=== PATIENT | female | born 1965 | race Caucasian/White ===

== ENCOUNTER 2016-07-28 19:13 | Emergency (ER) | payer OTHER ==
--- NOTE | 2016-07-28 20:55 | ER Document Report ---
ED Medical Screen (RME) - General Stated Complaint: RIB PAIN Mode of Arrival: Ambulatory Information source: Patient Notes: 50 y/o F presents to ED c/o left lateral chest wall/rib pain since yesterday morning after co-worker gave her a hug. States pain is worse with movement and deep breathing. I have greeted and performed a rapid initial assessment of this patient. A comprehensive ED assessment and evaluation of the patient, analysis of test results and completion of the medical decision making process will be conducted by additional ED providers. TRAVEL OUTSIDE OF THE [place] IN LAST 30 DAYS: No - Related Data Allergies/Adverse Reactions: Penicillins Allergy (Unknown, Verified 04/18/15 12:12) tetracycline [Tetracycline] Allergy (Unknown, Verified 04/18/15 12:12) Iodinated Contrast Media - Oral and [IV Dye, Iodine Containing] Allergy ( Verified 04/18/15 12:12) Liraglutide [From Victoza] Allergy (Verified 04/18/15 12:12) Past Medical History Endocrine Medical History: Reports: Hx Diabetes Mellitus Type 2 - no meds GI Medical History: Reports: Hx Crohn's Disease Musculoskeltal Medical History: Reports Hx Arthritis Past Surgical History: Reports: Hx Bowel Surgery - partial colostomy, Hx Cholecystectomy Physical Exam - Vital signs Vitals: Temp Pulse Resp BP Pulse Ox 98.1 F 86 18 149/72 H 96 07/28/16 20:32 07/28/16 20:32 07/28/16 20:32 07/28/16 20:32 07/28/16 20:32 - General General appearance: Appears well, Alert In distress: None - Respiratory Respiratory status: No respiratory distress Chest status: Tender, Pain with deep breathing Breath sounds: Normal Course - Vital Signs Vital signs: Temp Pulse Resp BP Pulse Ox 98.1 F 86 18 149/72 H 96 07/28/16 20:32 07/28/16 20:32 07/28/16 20:32 07/28/16 20:32 07/28/16 20:32
[2016-07-29] MEDS ORDERED: HYDROCODONE/ACETAMINOPHEN 5-325 MG 6 TAB/DSPK PO PRN (00:24)
[2016-07-29] MEDS ORDERED: AZITHROMYCIN 250 MG TABLET PO ONE (00:24)
--- NOTE | 2016-07-29 00:26 | ER Document Report ---
ED General - General Chief Complaint: Shortness Of Breath Stated Complaint: RIB PAIN Mode of Arrival: Ambulatory Notes: Patient's 48 of female presents with complaint of left lower rib pain. She says her friend who is visiting out of town Jesus because she felt 2 pops her left lower ribs. Since and it hurts to take a deep breath. She's concerned she may have broken ribs. No fevers. No vomiting. No diarrhea. No other complaints at this time. No abdominal pain. TRAVEL OUTSIDE OF THE [place] IN LAST 30 DAYS: No - Related Data Allergies/Adverse Reactions: Penicillins Allergy (Unknown, Verified 04/18/15 12:12) tetracycline [Tetracycline] Allergy (Unknown, Verified 04/18/15 12:12) Iodinated Contrast Media - Oral and [IV Dye, Iodine Containing] Allergy ( Verified 04/18/15 12:12) Liraglutide [From Victoza] Allergy (Verified 04/18/15 12:12) Past Medical History - General Information source: Patient - Social History Smoking Status: Current Every Day Smoker Chew tobacco use (# tins/day): No Frequency of alcohol use: Rare Drug Abuse: None Family History: Hypertension Patient has suicidal ideation: No Patient has homicidal ideation: No Endocrine Medical History: Reports: Hx Diabetes Mellitus Type 2 - no meds Renal/ Medical History: Denies: Hx Peritoneal Dialysis GI Medical History: Reports: Hx Crohn's Disease Musculoskeltal Medical History: Reports Hx Arthritis Past Surgical History: Reports: Hx Bowel Surgery - partial colostomy, Hx Cholecystectomy - Immunizations Hx Pneumococcal Vaccination: 03/05/13 Review of Systems - Review of Systems Notes: My Normal Review Basic REVIEW OF SYSTEMS: CONSTITUTIONAL : Denies fever, chills, or sweats. Denies recent illness. EENT: Denies eye, ear, throat, or mouth pain or symptoms. Denies nasal or sinus congestion. CARDIOVASCULAR: Left lower rib pain. RESPIRATORY: With deep breath. GASTROINTESTINAL: Denies abdominal pain. MUSCULOSKELETAL: Denies neck or back pain or joint pain or swelling. SKIN: Denies rash or skin lesions. NEUROLOGICAL: Denies altered mental status or loss of consciousness. Denies headache. Denies weakness or paralysis or loss of use of either side. Denies problems with gait or speech. Denies sensory or motor loss. ALL OTHER SYSTEMS REVIEWED AND NEGATIVE. Physical Exam - Vital signs Vitals: Temp Pulse Resp BP Pulse Ox 98.1 F 86 18 149/72 H 96 07/28/16 20:32 07/28/16 20:32 07/28/16 20:32 07/28/16 20:32 07/28/16 20:32 - Notes Notes: General Appearance: Well nourished, alert, cooperative, no acute distress, moderate obvious discomfort. Vitals: reviewed, See vital signs table. Head: no swelling or tenderness to the head Eyes: PERRL, EOMI, Conjuctiva clear Mouth: No decreasd moisture Lungs: No wheezing, No rales, No rhonci, No accessory muscle use, good air exchange bilaterally. Chest wall: Tenderness palpation over left lower ribs at the costochondral junction. Heart: Normal rate, Regular rythm, No murmur, no rub Abdomen: Normal BS, soft, No rigidity, No abdominal tenderness, No guarding, no rebound, no abdominal masses, no organomegaly Extremities: strength 5/5 in all extremities, good pulses in all extremities, no swelling or tenderness in the extremities, no edema. Skin: warm, dry, appropriate color, no rash Neuro: speech clear, oriented x 3, normal affect, responds appropriately to questions. Course - Vital Signs Vital signs: Temp Pulse Resp BP Pulse Ox 98.2 F 81 18 134/78 H 97 07/29/16 00:05 07/29/16 00:05 07/29/16 00:05 07/29/16 00:05 07/29/16 00:05 - Transfer of Care Notes: 07/29/16 06:25 Patient will be discharged home with pain medication. She is on immunosuppressive therapy due to history of rheumatoid arthritis. I will therefore place her on antibiotic so prevent pneumonia being that she already has atelectasis on her chest x-ray. She does have incentive spirometer at home. I encourage her to use this every 30 minutes. Patient encouraged return to ER as she has fever, difficulty breathing, or feels unwell. Patient agrees with plan and will be discharged home. Dictation of this chart was performed using voice recognition software; therefore, there may be some unintended grammatical errors. Discharge - Discharge Clinical Impression: Rib pain on left side Condition: Good Disposition: HOME, SELF-CARE Instructions: Oral Narcotic Medication ([facility]) Additional Instructions: Rib Contusion You have been diagnosed as having bruised ribs. It will usually take a few weeks for these injured ribs to heal. You should cough or take a deep breath at least every hour or two to prevent lung complications. You should not engage in any strenuous physical activity until released by your physician. The usual rule is "if it hurts, don' t do it." Return if you develop any of the following: (1) Fever or chills. (2) Persistent cough, coughing up blood, or shortness of breath. (3) Increasing pain. (4) Weakness, lightheadedness, or fainting. Please use your incentive spirometer at home once every 30 minutes to force yourself to take a deep breath. Please do not drive when taking the hydrocodone. please return to the ER if you develop fevers, difficulty breathing , or feel unwell. Prescriptions: Azithromycin 250 mg PO DAILY #4 tablet Hydrocodone/Acetaminophen [[place] 5-325 mg Tablet] 1 tab PO Q4 PRN #16 tablet PRN Reason: For Breakthrough Pain
[2016-07-29 01:10] VITALS: BP 134/78
== END 2016-07-29 00:50 | disposition home or self-care (01) ==
LOC: ER 19:13
DX: R07.81 Pleurodynia (principal); J98.11 Atelectasis; M06.9 Rheumatoid arthritis, unspecified; F17.200 Nicotine dependence, unspecified, uncomplicated; E11.9 Type 2 diabetes mellitus without complications; Z88.0 Allergy status to penicillin; Z88.1 Allergy status to other antibiotic agents; Z91.041 Radiographic dye allergy status; Z88.8 Allergy status to other drugs, medicaments and biological substances; Z79.899 Other long term (current) drug therapy
CPT/HCPCS: 99283

== ENCOUNTER → 2016-08-22 | Outpatient (CLI) | payer OTHER | LOC: RAD 12:38 | PROVIDERS: ATTEND Internal Medicine Nephrology | DX: N18.4 Chronic kidney disease, stage 4 (severe) (principal) | CPT/HCPCS: 76770 ==

== ENCOUNTER 2016-08-30 15:23 | Emergency (ER) | payer OTHER ==
--- NOTE | 2016-08-30 16:14 | ER Document Report ---
ED Medical Screen (RME) - General Stated Complaint: ABNORMAL LABS Notes: States she had labs done at [facility] this morning ordered by her finishing inspector. Called her about 2:00 this afternoon and told her her potassium was 6.0 and advised her to come to the emergency room. Denies chest pain or other symptoms. Patient states she was told she had stage IV renal failure. I have greeted and performed a rapid initial assessment of this patient. A comprehensive ED assessment and evaluation of the patient, analysis of test results and completion of the medical decision making process will be conducted by additional ED providers. TRAVEL OUTSIDE OF THE [place] IN LAST 30 DAYS: No - Related Data Allergies/Adverse Reactions: Penicillins Allergy (Unknown, Verified 08/30/16 16:13) tetracycline [Tetracycline] Allergy (Unknown, Verified 08/30/16 16:13) Iodinated Contrast Media - Oral and [IV Dye, Iodine Containing] Allergy ( Verified 08/30/16 16:13) Liraglutide [From Victoza] Allergy (Verified 08/30/16 16:13) Past Medical History Endocrine Medical History: Reports: Hx Diabetes Mellitus Type 2 - no meds Renal/ Medical History: Denies: Hx Peritoneal Dialysis GI Medical History: Reports: Hx Crohn's Disease Musculoskeltal Medical History: Reports Hx Arthritis Past Surgical History: Reports: Hx Bowel Surgery - partial colostomy, Hx Cholecystectomy - Immunizations Hx Diphtheria, Pertussis, Tetanus Vaccination: Yes Physical Exam - Vital signs Vitals: Temp Pulse Resp BP Pulse Ox 98.6 F 101 H 18 119/72 97 08/30/16 15:39 08/30/16 15:39 08/30/16 15:39 08/30/16 15:39 08/30/16 15:39 - Cardiovascular Rhythm: Regular Heart sounds: Normal auscultation Course - Vital Signs Vital signs: Temp Pulse Resp BP Pulse Ox 98.6 F 101 H 18 119/72 97 08/30/16 15:39 08/30/16 15:39 08/30/16 15:39 08/30/16 15:39 08/30/16 15:39
[2016-08-30 16:57] LABS: ALANINE AMINOTRANSFERASE 22 U/L (9-52); ALBUMIN 4.2 g/dL (3.5-5.0); ALKALINE PHOSPHATASE 94 U/L (38-126); ANION GAP 17 (5-19); ASPARTATE AMINO TRANSFERASE 25 U/L (14-36); BILIRUBIN,DIRECT 0.3 mg/dL (0.0-0.4); BILIRUBIN,TOTAL 0.4 mg/dL (0.2-1.3); BLOOD UREA NITROGEN 39 mg/dL (7-20); CALCIUM 10.2 mg/dL (8.4-10.2); CARBON DIOXIDE 17 mmol/L (22-30); CHLORIDE 108 mmol/L (98-107); CREATINE KINASE 20 U/L (30-135); CREATININE RESULT 2.36 mg/dL (0.52-1.25); GLUCOSE 83 mg/dL (75-110); POTASSIUM 5.7 mmol/L (3.6-5.0); SODIUM 142.1 mmol/L (137-145); TOTAL PROTEIN 7.4 g/dL (6.3-8.2)
[2016-08-30 17:09] LABS: CREATINE KINASE MB < 0.22 ng/mL (<4.55); TROPONIN I < 0.012 ng/mL
[2016-08-30] MEDS ORDERED: NORMAL SALINE 1000 ML 1,000 ML IV PRN (17:53)
--- NOTE | 2016-08-30 17:54 | ER Document Report ---
ED General <EL TABARES - Last Filed: 08/30/16 19:39> - General Mode of Arrival: Ambulatory Information source: Patient TRAVEL OUTSIDE OF THE [place] IN LAST 30 DAYS: No - HPI Onset: Other Quality of pain: No pain Similar symptoms previously: Yes Recently seen / treated by doctor: Yes <GLADYSTU - Last Filed: 08/30/16 20:56> - General Chief Complaint: Abnormal Lab Results Stated Complaint: ABNORMAL LABS Notes: The patient had outpatient lab work done this morning showing a potassium 6.0 and a creatinine 2.14, it was repeated 5 hours later and potassium is 5.7 with a creatinine 2.36 The patient was discussed with Dr. Minor who reports her baseline creatinine is about 2.2 She will receive 2 L of IV fluid, then be encouraged to drink plenty of water and avoid foods and liquids that are rich in potassium. She was also found to have a white blood cell count of 22,000, this is not an unusual finding and she has an appointment in 2 days with a auto dealership porter in [place]. (RAYSHAWN,EL) Patient is a 50-year-old female that presents to the emergency department today secondary to an elevated potassium this morning during outpatient labs. Patient states she is not very compliant with her diet, stating she eats bananas rarely however she does consume approximately 1 orange a day. Patient states she is being followed by a auto dealership porter in [place] secondary to a chronic elevated white blood cell count. Patient is no longer on Humira for RA. Patient states she is not having any problems with her ostomy. (TU GRAHAM) - Related Data Allergies/Adverse Reactions: Penicillins Allergy (Unknown, Verified 08/30/16 17:49) tetracycline [Tetracycline] Allergy (Unknown, Verified 08/30/16 17:49) Iodinated Contrast Media - Oral and [IV Dye, Iodine Containing] Allergy ( Verified 08/30/16 17:49) Liraglutide [From Victoza] Allergy (Verified 08/30/16 17:49) Past Medical History - General Information source: Patient, PENDING SALE TO [facility] Records - Social History Smoking Status: Current Every Day Smoker Cigarette use (# per day): Yes - 1 ppd Chew tobacco use (# tins/day): No Frequency of alcohol use: None Drug Abuse: None Lives with: Family Family History: Reviewed & Not Pertinent, Hypertension Patient has suicidal ideation: No Patient has homicidal ideation: No - Past Medical History Cardiac Medical History: Reports: Hx Hypercholesterolemia, Hx Hypertension Endocrine Medical History: Reports: Hx Diabetes Mellitus Type 2 - no meds GI Medical History: Reports: Hx Crohn's Disease Musculoskeltal Medical History: Reports Hx Arthritis Past Surgical History: Reports: Hx Bowel Surgery - colostomy, iliostomy, Hx Cholecystectomy - Immunizations Hx Diphtheria, Pertussis, Tetanus Vaccination: Yes Hx Pneumococcal Vaccination: 03/05/13 <TU GRAHAM - Last Filed: 08/30/16 20:56> Review of Systems - Review of Systems Constitutional: See HPI, Other - elevated potassium with outpatient labs this morning EENT: No symptoms reported Cardiovascular: No symptoms reported Respiratory: No symptoms reported Gastrointestinal: No symptoms reported Genitourinary: No symptoms reported Female Genitourinary: No symptoms reported Musculoskeletal: No symptoms reported Skin: No symptoms reported Hematologic/Lymphatic: No symptoms reported Neurological/Psychological: No symptoms reported -: Yes All other systems reviewed and negative <TU GRAHAM - Last Filed: 08/30/16 20:56> Physical Exam <EL TABARES - Last Filed: 08/30/16 19:39> <TU GRAHAM - Last Filed: 08/30/16 20:56> - Vital signs Vitals: Temp Pulse Resp BP Pulse Ox 98.6 F 101 H 18 119/72 97 08/30/16 15:39 08/30/16 15:39 08/30/16 15:39 08/30/16 15:39 08/30/16 15:39 - Notes Notes: Physical Exam: General: Alert, appears well. HEENT: Normocephalic. Atraumatic. PERRL. Extraocular movements intact. Oropharynx clear. Neck: Supple. Non-tender. Respiratory: No respiratory distress. Rhonchi with forced cough consistent with extensive smoking history. Cardiovascular: Regular rate and rhythm. Abdominal: Ostomy in place. Obese. Non-tender. No distension. Normal Bowel Sounds. Back: Non-tender. No deformity or step off. Extremities: Moves all four extremities. Upper extremities: Normal inspection. Normal ROM. No edema. Lower extremities: Normal inspection. No edema.Normal ROM. Neurological: Normal cognition. AAOx4. Normal speech. Psychological: Normal affect. Normal Mood. Skin: Warm. Dry. Normal color. (TU GRAHAM) Course - Laboratory Result Diagrams: 08/30/16 16:25 - EKG Interpretation by Me EKG shows normal: Sinus rhythm, [place], Intervals, QRS Complexes, ST-T Waves Rate: Normal - 89 Rhythm: NSR <EL TABARES - Last Filed: 08/30/16 19:39> - Laboratory Result Diagrams: 08/30/16 16:25 <TU GRAHAM - Last Filed: 08/30/16 20:56> - Vital Signs Vital signs: Temp Pulse Resp BP Pulse Ox 98.6 F 87 18 122/75 96 08/30/16 18:11 08/30/16 18:11 08/30/16 18:11 08/30/16 18:11 08/30/16 18:11 - Laboratory Laboratory results interpreted by me: 08/30/16 16:25 Potassium 5.7 H Chloride 108 H Carbon Dioxide 17 L BUN 39 H Creatinine 2.36 H Est GFR ( Amer) 26 L Est GFR (Non-Af Amer) 22 L Creatine Kinase 20 L Discharge <EL TABARES - Last Filed: 08/30/16 19:39> <TU GRAHAM - Last Filed: 08/30/16 20:56> - Discharge Clinical Impression: Hyperkalemia Chronic renal insufficiency Qualifiers: Chronic kidney disease stage: stage 4 (severe) Qualified Code(s): N18.4 - Chronic kidney disease, stage 4 (severe) Condition: Stable Disposition: HOME, SELF-CARE Additional Instructions: Drink plenty of water today. Avoid potassium rich foods, fruits, and liquids. Follow-up with your doctor tomorrow to recheck your potassium level. Referrals: JALYN MORALES MD [Primary Care Provider] - Follow up as needed Scribe Attestation: 08/30/16 19:42 I personally performed the services described in the documentation, reviewed and edited the documentation which was dictated to the scribe in my presence, and it accurately records my words and actions. (EL TABARES) Scribe Documentation - Scribe Written by Scribe:: Joellen Smith, 08/30/2016 193 acting as scribe for :: Rayshawn <TU GRAHAM - Last Filed: 08/30/16 20:56>
--- NOTE | 2016-08-30 20:24 | EKG REPORT ---
SEVERITY:- NORMAL ECG - SINUS RHYTHM : Confirmed by: Marielos Mario 30-Aug-2016 20:24:29
[2016-08-30 21:56] VITALS: BP 117/55
== END 2016-08-30 21:57 | disposition home or self-care (01) ==
LOC: ER 15:23
DX: E87.5 Hyperkalemia (principal); N18.4 Chronic kidney disease, stage 4 (severe); F17.210 Nicotine dependence, cigarettes, uncomplicated
CPT/HCPCS: 93005; 99285; 96360; 96361; 36415; 82553; 82306; 82040; 82550; 84100; 85025; 80048; 80053; 83970; 81001; 84484; 84156; 82570; 93010; J7030

== ENCOUNTER → 2016-08-30 | Outpatient (CLI) | payer OTHER ==
[2016-08-30 12:14] LABS: HEMATOCRIT 37.5 % (36.0-47.0); HEMOGLOBIN 12.1 g/dL (12.0-15.5); HGB HCT DIFFERENCE -1.2; MEAN CORPUSCULAR HEMOGLOBIN 28.3 pg (27.0-33.4); MEAN CORPUSCULAR HGB CONC 32.2 g/dL (32.0-36.0); MEAN CORPUSCULAR VOLUME 88 fl (80-97); RED BLOOD COUNT 4.27 10^6/uL (3.72-5.28); RED CELL DISTRIBUTION WIDTH 14.3 % (11.5-14.0); WHITE BLOOD COUNT 25.2 10^3/uL (4.0-10.5)
[2016-08-30 12:19] LABS: APPEARANCE,URINE CLOUDY; BILIRUBIN,URINE NEGATIVE (NEGATIVE); GLUCOSE, URINE NEGATIVE (NEGATIVE); KETONES,URINE TRACE mg/dL (NEGATIVE); LEUKOCYTE ESTERASE,URINE SMALL (NEGATIVE); NITRITE,URINE NEGATIVE (NEGATIVE); PROTEIN,URINE 100 mg/dL (NEGATIVE); URINE SPECIFIC GRAVITY 1.023
[2016-08-30 12:40] LABS: ANION GAP 14 (5-19); BLOOD UREA NITROGEN 38 mg/dL (7-20); CARBON DIOXIDE 17 mmol/L (22-30); CHLORIDE 109 mmol/L (98-107); CREATININE RESULT 2.14 mg/dL (0.52-1.25); GLUCOSE 189 mg/dL (75-110); PHOSPHORUS 4.6 mg/dL (2.5-4.5); SODIUM 139.6 mmol/L (137-145)
[2016-08-30 13:00] LABS: BAND NEUTROPHILS % (MANUAL) 1 % (3-5); BASOPHILS % (MANUAL) 0 % (0-2); EOSINOPHILS % (MANUAL) 1 % (0-6); LYMPHOCYTES % (MANUAL) 11 % (13-45); POLYCHROMASIA SLIGHT; TOTAL CELLS COUNTED 100
[2016-08-30 13:01] LABS: TOXIC GRANULATION SLIGHT
[2016-08-31 11:05] LABS: VITAMIN D 25-HYDROXY 20.9 ng/mL (30.0-100.0)
[2016-08-31 11:40] LABS: CREATININE URINE 341.6 mg/dL (Not Estab.)
== END ==
LOC: OD 10:47
PROVIDERS: ATTEND Internal Medicine Nephrology
DX: I12.9 Hypertensive chronic kidney disease with stage 1 through stage 4 chronic kidney disease, or unspecified chronic kidney disease (principal); N18.4 Chronic kidney disease, stage 4 (severe); E11.9 Type 2 diabetes mellitus without complications
CPT/HCPCS: 36415; 80048; 81001; 82040; 82306; 82570; 83970; 84100; 84156; 85025

== ENCOUNTER 2016-11-11 15:10 | Emergency (ER) | payer OTHER ==
--- NOTE | 2016-11-11 15:33 | ER Document Report ---
ED Medical Screen (RME) - General Chief Complaint: Abdominal Pain Stated Complaint: ABDOMINAL PAIN Time Seen by Provider: 11/11/16 15:25 Notes: This 51-year-old female patient comes emergency room complaining of left-sided abdominal pains and cramping with a decreased output of her ileostomy for the past 36 hours. The cramping with decreased output has been occurring off and on for a good while, she did have barium swallow that was unremarkable a few weeks ago. She did have a total colectomy and partial small bowel resection for Crohn's disease several years back. She also has renal insufficiency, diabetes, and a chronically elevated white blood cell count. I have greeted and performed a rapid initial assessment of this patient. A comprehensive ED assessment and evaluation of the patient, analysis of test results and completion of the medical decision making process will be conducted by additional ED providers. TRAVEL OUTSIDE OF THE [place] IN LAST 30 DAYS: No - Related Data Allergies/Adverse Reactions: Penicillins Allergy (Unknown, Verified 11/11/16 15:12) tetracycline [Tetracycline] Allergy (Unknown, Verified 11/11/16 15:12) Iodinated Contrast- Oral and IV Dye [IV Dye, Iodine Containing] Allergy ( Verified 11/11/16 15:12) Liraglutide [From Victoza] Allergy (Verified 11/11/16 15:12) Past Medical History - Past Medical History Cardiac Medical History: Reports: Hx Hypercholesterolemia, Hx Hypertension Endocrine Medical History: Reports: Hx Diabetes Mellitus Type 2 - no meds Renal/ Medical History: Denies: Hx Peritoneal Dialysis GI Medical History: Reports: Hx Crohn's Disease Musculoskeltal Medical History: Reports Hx Arthritis Past Surgical History: Reports: Hx Bowel Surgery - colostomy, iliostomy, Hx Cholecystectomy - Immunizations Hx Diphtheria, Pertussis, Tetanus Vaccination: Yes Physical Exam - Vital signs Vitals: Temp Pulse Resp BP Pulse Ox 98.1 F 86 20 147/77 H 97 11/11/16 15:12 11/11/16 15:12 11/11/16 15:12 11/11/16 15:12 11/11/16 15:12 Course - Vital Signs Vital signs: Temp Pulse Resp BP Pulse Ox 98.1 F 86 20 147/77 H 97 11/11/16 15:12 11/11/16 15:12 11/11/16 15:12 11/11/16 15:12 11/11/16 15:12
[2016-11-11 15:53] LABS: HEMATOCRIT 38.6 % (36.0-47.0); HEMOGLOBIN 12.3 g/dL (12.0-15.5); HGB HCT DIFFERENCE -1.7; MEAN CORPUSCULAR HEMOGLOBIN 28.7 pg (27.0-33.4); MEAN CORPUSCULAR HGB CONC 31.9 g/dL (32.0-36.0); MEAN CORPUSCULAR VOLUME 90 fl (80-97); RED BLOOD COUNT 4.28 10^6/uL (3.72-5.28); RED CELL DISTRIBUTION WIDTH 14.1 % (11.5-14.0); WHITE BLOOD COUNT 20.4 10^3/uL (4.0-10.5)
[2016-11-11 16:15] LABS: BASOPHILS % (MANUAL) 0 % (0-2); EOSINOPHILS % (MANUAL) 0 % (0-6); LYMPHOCYTES % (MANUAL) 9 % (13-45); TOTAL CELLS COUNTED 100
[2016-11-11 16:17] LABS: ANISOCYTOSIS SLIGHT; OVALOCYTES SLIGHT; POIKILOCYTOSIS SLIGHT
[2016-11-11 16:19] LABS: TOXIC GRANULATION SLIGHT
[2016-11-11 16:22] LABS: ALANINE AMINOTRANSFERASE 24 U/L (9-52); ALBUMIN 3.5 g/dL (3.5-5.0); ALKALINE PHOSPHATASE 81 U/L (38-126); ANION GAP 9 (5-19); ASPARTATE AMINO TRANSFERASE 16 U/L (14-36); BILIRUBIN,DIRECT 0.3 mg/dL (0.0-0.4); BILIRUBIN,TOTAL 0.4 mg/dL (0.2-1.3); BLOOD UREA NITROGEN 22 mg/dL (7-20); CARBON DIOXIDE 20 mmol/L (22-30); CHLORIDE 107 mmol/L (98-107); GLUCOSE 165 mg/dL (75-110); POTASSIUM 4.9 mmol/L (3.6-5.0); SODIUM 136.4 mmol/L (137-145); TOTAL PROTEIN 6.4 g/dL (6.3-8.2)
--- NOTE | 2016-11-11 16:49 | RADIOLOGY REPORT (SQ) ---
EXAM DESCRIPTION: ACUTE ABDOMEN SERIES COMPLETED DATE/TIME: 11/11/2016 4:07 pm REASON FOR STUDY: abd cramps, decreased iliostomy output COMPARISON: Chest x-ray 07/28/2016 NUMBER OF VIEWS: Three views. TECHNIQUE: Frontal chest, supine abdomen and upright/decubitus abdomen radiographic images acquired. LIMITATIONS: None. FINDINGS: CHEST: Interval clearing of the lung stephens since prior study. Linear marking persist on the right. Port in place. FREE AIR: None. No abnormal gas collections. BOWEL GAS PATTERN: Nonobstructive pattern. No dilated loops or air fluid levels. CALCIFICATIONS: No suspicious calcifications of the upper abdomen. Multiple nonspecific pelvic calci fications. . HARDWARE: Ostomy right lower abdomen. SOFT TISSUES: No gross mass or suggestion of organomegaly. BONES: No acute fracture. No worrisome bone lesions. OTHER: No other significant finding. IMPRESSION: Nonobstructive bowel pattern. Interval clearing of the lung stephens since prior chest x-ray. TECHNICAL DOCUMENTATION: JOB ID: [id number] [employer]- All Rights Reserved
[2016-11-11] MEDS ORDERED: NORMAL SALINE 1000 ML 1,000 ML IV ONE (18:38)
[2016-11-11] MEDS ORDERED: ONDANSETRON HCL INJ/PF 4 MG/2 ML SDV IV ONE (18:38)
--- NOTE | 2016-11-11 18:40 | ER Document Report ---
ED General - General Chief Complaint: Abdominal Pain Stated Complaint: ABDOMINAL PAIN Time Seen by Provider: 11/11/16 15:25 Notes: Patient is a 51-year-old female with past medical history Crohn's disease status post complete colectomy and partial small bowel resection with an ostomy in the right lower quadrant who presents with 24 hours of progressively worsening, severe, constant, stabbing abdominal pain. Nothing improves or worsens her pain. She notes associated nausea and decreased ostomy output but no vomiting. She has not had a fever. Notes that she has had similar symptoms in the past but never to this degree of severity. She has not seen her primary care doctor regarding today's concerns. TRAVEL OUTSIDE OF THE [place] IN LAST 30 DAYS: No - Related Data Allergies/Adverse Reactions: Penicillins Allergy (Unknown, Verified 11/11/16 15:12) tetracycline [Tetracycline] Allergy (Unknown, Verified 11/11/16 15:12) Iodinated Contrast- Oral and IV Dye [IV Dye, Iodine Containing] Allergy ( Verified 11/11/16 15:12) Liraglutide [From Victoza] Allergy (Verified 11/11/16 15:12) Past Medical History - General Information source: Patient - Social History Smoking Status: Current Every Day Smoker Chew tobacco use (# tins/day): No Frequency of alcohol use: None Drug Abuse: None Lives with: Family Family History: Reviewed & Not Pertinent, Hypertension Patient has suicidal ideation: No Patient has homicidal ideation: No - Past Medical History Cardiac Medical History: Reports: Hx Hypercholesterolemia, Hx Hypertension Endocrine Medical History: Reports: Hx Diabetes Mellitus Type 2 - no meds Renal/ Medical History: Denies: Hx Peritoneal Dialysis GI Medical History: Reports: Hx Crohn's Disease Musculoskeltal Medical History: Reports Hx Arthritis Past Surgical History: Reports: Hx Bowel Surgery - colostomy, iliostomy, Hx Cholecystectomy - Immunizations Hx Diphtheria, Pertussis, Tetanus Vaccination: Yes Hx Pneumococcal Vaccination: 03/05/13 Review of Systems - Review of Systems Notes: Constitutional: Negative for fever. HENT: Negative for sore throat. Eyes: Negative for visual changes. Cardiovascular: Negative for chest pain. Respiratory: Negative for shortness of breath. Gastrointestinal: Positive for abdominal pain and nausea Genitourinary: Negative for dysuria. Musculoskeletal: Negative for back pain. Skin: Negative for rash. Neurological: Negative for headaches, weakness or numbness. 10 point ROS negative except as marked above and in HPI. Physical Exam - Vital signs Vitals: Temp Pulse Resp BP Pulse Ox 98.1 F 86 20 147/77 H 97 11/11/16 15:12 11/11/16 15:12 11/11/16 15:12 11/11/16 15:12 11/11/16 15:12 Interpretation: Hypertensive Notes: PHYSICAL EXAMINATION: GENERAL: Well-appearing, well-nourished and in no acute distress. HEAD: Atraumatic, normocephalic. EYES: Pupils equal round and reactive to light, extraocular movements intact, sclera anicteric, conjunctiva are normal. ENT: nares patent, oropharynx clear without exudates. Moist mucous membranes. NECK: Normal range of motion, supple without lymphadenopathy LUNGS: Breath sounds clear to auscultation bilaterally and equal. No wheezes rales or rhonchi. HEART: Regular rate and rhythm without murmurs ABDOMEN: Soft, diffuse mild tenderness on palpation with focal tenderness to the left upper quadrant and left flank. No rebound or guarding. EXTREMITIES: Normal range of motion, no pitting or edema. No cyanosis. NEUROLOGICAL: No focal neurological deficits. Moves all extremities spontaneously and on command. PSYCH: Normal mood, normal affect. SKIN: Warm, Dry, normal turgor, no rashes or lesions noted. Course - Re-evaluation Re-evalutation: 11/11/16 18:39 Patient is a 51-year-old female presenting with diffuse abdominal pain nausea and decreased ostomy output concerning for a possible small bowel obstruction, ileus or acute Crohn's flare. Abdominal exam does show diffuse tenderness without rebound or guarding. Patient is overall well in appearance, vitals within normal limits. Laboratories show a leukocytosis which patient reports is her baseline. She had labs done 2 weeks ago at [facility] she has with her that showed a white count is unchanged from that time. Her creatinine is at baseline today. 2000-CT scan does not show any acute intestinal pathology but does note a left ureteral 9 mm stone with partial obstruction. Awaiting urinalysis and then will ask that the patient follow-up with urology as an outpatient. 11/11/16 22:28 I discussed this case with the urologist information management officer Dr. Benson who has assessed the patient. He is in agreement with outpatient follow-up. Urinalysis is grossly contaminated and has been sent for culture but will not be treated at this time. The urologist is in agreement with avoiding treatment at this time due to the gross contamination of the specimen. At this time will discharge with return precautions and follow-up recommendations. Verbal discharge instructions given a the bedside and opportunity for questions given. Medication warnings reviewed. Patient is in agreement with this plan and has verbalized understanding of return precautions and the need for primary care follow-up in the next 24-72 hours. - Vital Signs Vital signs: Temp Pulse Resp BP Pulse Ox 98.2 F 79 18 136/63 H 96 11/11/16 22:36 11/11/16 22:36 11/11/16 22:36 11/11/16 22:36 11/11/16 22:36 - Laboratory Result Diagrams: 11/11/16 15:41 11/11/16 15:41 Laboratory results interpreted by me: 11/11/16 11/11/16 11/11/16 15:41 15:41 21:09 WBC 20.4 H MCHC 31.9 L RDW 14.1 H Seg Neuts % (Manual) 90 H Lymphocytes % (Manual) 9 L Monocytes % (Manual) 1 L Abs Neuts (Manual) 18.4 H Sodium 136.4 L Carbon Dioxide 20 L BUN 22 H Creatinine 2.10 H Est GFR ( Amer) 30 L Est GFR (Non-Af Amer) 25 L Glucose 165 H Urine Protein 30 H Urine Blood SMALL H Ur Leukocyte Esterase SMALL H - Diagnostic Test Radiology reviewed: Reports reviewed Discharge - Discharge Clinical Impression: Left nephrolithiasis Hydronephrosis Qualifiers: Hydronephrosis type: with renal calculous obstruction Qualified Code(s): N13.2 - Hydronephrosis with renal and ureteral calculous obstruction Condition: Good Disposition: HOME, SELF-CARE Additional Instructions: Your symptoms should improve over the course of the next one week. If you continue to have pain for greater than one week or your pain is not controlled with the pain medications that you have been sent home with you need to return to the emergency department. Please also return if you develop fever, persistent vomiting, or any other symptoms that are concerning to you. For your pain: Take ibuprofen 600 mg and acetaminophen 1000 mg every 6 hours together as needed for pain. If this does not control your pain you may take 15 mg of oral morphine every 4 hours as needed. Please be very careful about using the oral morphine and only use this for severe pain. Your also been sent home with a medication called Flomax to help pass the stone. You've been given Zofran to assist with nausea. Please followup closely with your primary care provider. Prescriptions: Tamsulosin HCl [Flomax 0.4 mg Cap.sr] 0.4 mg PO DAILY #7 cap.sr.24h Referrals: JALYN MORALES MD [Primary Care Provider] - Follow up as needed SHIMA BENSON MD [[facility]] - Follow up in 3-5 days
[2016-11-11] MEDS: MORPHINE SULFATE 10 MG/ML INJ IV PRN ×2 (19:12→21:53)
--- NOTE | 2016-11-11 19:30 | RADIOLOGY REPORT (SQ) ---
EXAM DESCRIPTION: CT ABD/PELVIS NO ORAL OR IV COMPLETED DATE/TIME: 11/11/2016 7:03 pm REASON FOR STUDY: eval sbo, perforation COMPARISON: None. TECHNIQUE: CT scan of the abdomen and pelvis performed without intravenous or oral contrast. Images reviewed with lung, soft tissue, and bone windows. Reconstructed coronal and sagittal MPR images revi ewed. All images stored on PACS. All CT scanners at this facility use dose modulation, iterative reconstruction, and/or weight based d osing when appropriate to reduce radiation dose to as low as reasonably achievable (ALARA). [facility]: Dose Right [facility]: CareDose [facility]: Dose Right [facility]: Teradose 4D [facility]: Rescale RADIATION DOSE: 17.93mGy. LIMITATIONS: None. FINDINGS: LOWER CHEST: No significant findings. No nodules or infiltrates. NON-CONTRASTED LIVER, SPLEEN, ADRENALS: 17 mm left adrenal low-density nodule, likely an adenoma. Ev aluation limited by lack of IV contrast. Otherwise unremarkable. PANCREAS: 8 mm calcification in the pancreatic head versus nonobstructing common bile duct stone. No masses. No peripancreatic inflammatory changes. GALLBLADDER: Surgically absent. RIGHT KIDNEY AND URETER: No suspicious masses. Assessment limited by lack of IV contrast. No signif icant calcifications. No hydronephrosis or hydroureter. LEFT KIDNEY AND URETER: No suspicious masses. Assessment limited by lack of IV contrast. 9 mm parti ally obstructing proximal ureteral stone with mild-moderate hydronephrosis. Additional 6 mm upper po le stone. AORTA AND RETROPERITONEUM: No aneurysm. No retroperitoneal masses or adenopathy. BOWEL AND PERITONEAL CAVITY: Right lower quadrant ileostomy. Prior colectomy. No obvious masses or inflammatory changes. No free fluid. APPENDIX: Surgically absent. PELVIS, BLADDER, AND ABDOMINAL WALL:No free fluid. Bladder normal. BONES: No significant findings. OTHER: No other significant finding. IMPRESSION: 9 mm partially obstructing proximal left ureteral stone with mild-moderate hydronephrosi s. 8 mm calcification in the pancreatic head versus nonobstructing common bile duct stone. 17 mm left adrenal low-density nodule, likely an adenoma. TECHNICAL DOCUMENTATION: JOB ID: [id number] Quality ID # [id number]: Final reports with documentation of one or more dose reduction techniques (e.g., Au tomated exposure control, adjustment of the mA and/or kV according to patient size, use of iterative reconstruction technique) 2010 [employer]- All Rights Reserved
[2016-11-11 21:34] LABS: APPEARANCE,URINE CLOUDY; BILIRUBIN,URINE NEGATIVE (NEGATIVE); GLUCOSE, URINE NEGATIVE (NEGATIVE); KETONES,URINE NEGATIVE (NEGATIVE); LEUKOCYTE ESTERASE,URINE SMALL (NEGATIVE); NITRITE,URINE NEGATIVE (NEGATIVE); PROTEIN,URINE 30 mg/dL (NEGATIVE); URINE SPECIFIC GRAVITY 1.025; UROBILINOGEN,URINE NEGATIVE mg/dL (<2.0)
[2016-11-11] MEDS ORDERED: HYDROCODONE/ACETAMINOPHEN 5-325 MG 6 TAB/DSPK PO PRN (22:29)
[2016-11-11] MEDS ORDERED: ONDANSETRON ODT 4 MG TAB (6 TAB/DSPK) PO PRN (22:29)
[2016-11-11] MEDS ORDERED: KETOROLAC TROMETHAMINE INJ/PF 30 MG/1 ML SDV IV ONE (22:30)
[2016-11-11 22:37] VITALS: BP 136/63
== END 2016-11-11 23:58 | disposition home or self-care (01) ==
LOC: ER 15:10
DX: N20.0 Calculus of kidney (principal); N13.2 Hydronephrosis with renal and ureteral calculous obstruction; R10.9 Unspecified abdominal pain; K50.90 Crohn's disease, unspecified, without complications; R11.0 Nausea; R50.9 Fever, unspecified; F17.210 Nicotine dependence, cigarettes, uncomplicated
CPT/HCPCS: 96376; 99284; 96361; 96374; 96375; 36415; 85025; 80053; 81001; 74022; 74176; J2270; J2405; J7030

== ENCOUNTER 2017-08-25 06:20 | Emergency (ER) | payer OTHER ==
--- NOTE | 2017-08-25 07:04 | ER Document Report ---
ED GI/ - General Chief Complaint: Vomiting/Diarrhea Stated Complaint: DIARRHEA Time Seen by Provider: 08/25/17 07:04 Mode of Arrival: Medic Information source: Patient Notes: 51-year-old female with history of Crohn's and ileostomy is complaining of dominant pain, vomiting and green diarrhea for 3 days. She feels like she is dehydrated. Had some fevers and chills. Suspected that maybe she had a urinary tract infection because of the way she felt yesterday. She ordinarily takes prednisone 5 mg daily and Cimzia. TRAVEL OUTSIDE OF THE [place] IN LAST 30 DAYS: No - Related Data Allergies/Adverse Reactions: Penicillins Allergy (Unknown, Verified 11/11/16 15:12) tetracycline [Tetracycline] Allergy (Unknown, Verified 11/11/16 15:12) Iodinated Contrast- Oral and IV Dye [IV Dye, Iodine Containing] Allergy ( Verified 11/11/16 15:12) Liraglutide [From Victoza] Allergy (Verified 11/11/16 15:12) Past Medical History - General Information source: Patient - Social History Smoking Status: Current Every Day Smoker Frequency of alcohol use: Occasional Drug Abuse: None Family History: Reviewed & Not Pertinent, Hypertension Patient has suicidal ideation: No Patient has homicidal ideation: No - Past Medical History Cardiac Medical History: Reports: Hx Hypercholesterolemia, Hx Hypertension Endocrine Medical History: Reports: Hx Diabetes Mellitus Type 2 - no meds Renal/ Medical History: Denies: Hx Peritoneal Dialysis GI Medical History: Reports: Hx Crohn's Disease Musculoskeltal Medical History: Reports Hx Arthritis Past Surgical History: Reports: Hx Bowel Surgery - colostomy, iliostomy, Hx Cholecystectomy - Immunizations Hx Diphtheria, Pertussis, Tetanus Vaccination: Yes Hx Pneumococcal Vaccination: 03/05/13 Review of Systems - Review of Systems Constitutional: No symptoms reported EENT: No symptoms reported Cardiovascular: No symptoms reported Respiratory: No symptoms reported Gastrointestinal: See HPI Genitourinary: No symptoms reported Female Genitourinary: No symptoms reported Musculoskeletal: No symptoms reported Skin: No symptoms reported Hematologic/Lymphatic: No symptoms reported Neurological/Psychological: No symptoms reported Physical Exam - Vital signs Vitals: Temp Pulse Resp BP Pulse Ox 98.7 F 110 H 20 127/97 H 99 08/25/17 06:35 08/25/17 06:35 08/25/17 06:35 08/25/17 06:35 08/25/17 06:35 Interpretation: Normal - General General appearance: Appears well, Alert Notes: Left chest port. - HEENT Head: Normocephalic, Atraumatic Eyes: Normal Conjunctiva: Normal Pupils: PERRL Mucous membranes: Dry Pharynx: Erythema - Mild Neck: Supple. No: Lymphadenopathy - Respiratory Respiratory status: No respiratory distress Chest status: Nontender Breath sounds: Normal Chest palpation: Normal - Cardiovascular Rhythm: Regular Heart sounds: Normal auscultation Murmur: No - Abdominal Inspection: Normal Distension: No distension Bowel sounds: Normal Tenderness: Tender - Midline just superior to ileostomy. No: Guarding, Rebound Organomegaly: No organomegaly - Back Back: Normal, Nontender. No: CVA tenderness - Extremities General upper extremity: Normal inspection, Nontender, Normal color, Normal ROM , Normal temperature General lower extremity: Normal inspection, Nontender, Normal color, Normal ROM , Normal temperature, Normal weight bearing. No: Harsh's sign - Neurological Neuro grossly intact: Yes Cognition: Normal Orientation: AAOx4 Brock Coma Scale Eye Opening: Spontaneous [place] Coma Scale Verbal: Oriented Brock Coma Scale Motor: Obeys Commands [place] Coma Scale Total: 15 Speech: Normal Motor strength normal: LUE, RUE, LLE, RLE Sensory: Normal - Psychological Associated symptoms: Normal affect, Normal mood - Skin Skin Temperature: Warm Skin Moisture: Dry Skin Color: Normal Course - Re-evaluation Re-evalutation: 08/25/17 10:[address] Minor in the past I will call her about the GFR being down to 20 the BUN is 33 and the creatinine 2.48. The patient states that penicillin gives her nausea which is her "allergy". Rocephin will be given for a urinary tract infection she had WBCs RBCs and 1+ bacteria in her urine the patient stated she thought maybe she had a urinary tract infection based upon how she fell yesterday. 08/25/17 11:[address] carrillo who thinks that it would be patino to keep the pt overnight for hydration. 08/25/17 11:55 Dr. Gaston (hospitalist called) states that he will not admit to [facility] since we do not have gastroenterology specialty and that is what she needs. I will maintain her with normal saline at 150 an hour, give her Solu-Medrol 125 mg IV for Crohn's flare, and the patient is willing to be transferred to [facility]. Her primary care doctor's [facility] and her tap grinder in [place] is Dr. Hassan. I called the transfer center pending them calling me back 08/25/17 12:39 [facility] Dr. iMlo Cueva, who will accept and put on the list for a bed, but unlikely that she will get one today. She rec. getting CRP and ESR which have been added, and call the supervisor nutritional yeast GI for dr. hassan. 08/25/17 13:23 Mikael at the [facility] transfer center states that tap grinder on-call is refusing to consult with me about this patient states he does not know the patient. He is the GI on -call for Dr. Hassan. JEFFERY spoke with her clinical supervisor at the transfer center and they cannot make him consult with me. I have put in another call to speak with Dr. Cueva about this as it was her recommendation that I speak with GI. Patient tried p.o.'s and it made her nauseated some more Zofran has been given. The patient knows Dr. BETANCOURT she is fairly sure that he saw her when she was hospitalized at [facility]. 08/25/17 14:[address] Cueva again at [facility] and she is going to try to get in touch with Dr. Hassan. She did recommend giving Protonix 40 mg IV which I have added. I did tell her that the CRP was 19.9, she is nauseated trying to drink water, and the ileostomy drainage is still watery and green. 08/25/17 15:39 rm 513 ready for the pt. arranging transport. 08/25/17 16:37 pt wants to eat now, crackers given. Pt feels much better, is getting some seeds of consistancy in I bag now. vitals stable. [facility] here for the pt 08/25/17 16:38 - Vital Signs Vital signs: Temp Pulse Resp BP Pulse Ox 98.2 F 107 H 16 132/73 H 96 08/25/17 16:34 08/25/17 16:33 08/25/17 16:34 08/25/17 16:33 08/25/17 16:34 - Laboratory Result Diagrams: 08/25/17 07:35 08/25/17 07:35 Laboratory results interpreted by me: 08/25/17 08/25/17 08/25/17 07:35 07:35 07:35 WBC 12.1 H Hgb 11.8 L Hct 35.9 L RDW 15.6 H Absolute Neutrophils 8.9 H ESR Chloride 114 H Carbon Dioxide 11 L BUN 33 H Creatinine 2.48 H Est GFR ( Amer) 25 L Est GFR (Non-Af Amer) 20 L Glucose 123 H Calcium 7.8 L AST 56 H ALT 61 H C-Reactive Protein 19.9 H Urine Protein Ur Leukocyte Esterase 08/25/17 08/25/17 09:42 13:39 WBC Hgb Hct RDW Absolute Neutrophils ESR 60 H Chloride Carbon Dioxide BUN Creatinine Est GFR ( Amer) Est GFR (Non-Af Amer) Glucose Calcium AST ALT C-Reactive Protein Urine Protein 100 H Ur Leukocyte Esterase SMALL H Discharge - Discharge Clinical Impression: high ileostomy diarrhea , crohn's flare, Stage 4 chronic kidney disease, Hypocalcemia Vomiting Qualifiers: Vomiting type: unspecified Vomiting Intractability: non-intractable Nausea presence: with nausea Qualified Code(s): R11.2 - Nausea with vomiting, unspecified Urinary tract infection Qualifiers: Urinary tract infection type: site unspecified Hematuria presence: without hematuria Qualified Code(s): N39.0 - Urinary tract infection, site not specified Abdominal pain Qualifiers: Abdominal location: periumbilical Qualified Code(s): R10.33 - Periumbilical pain Diabetes Qualifiers: Diabetes mellitus type: type 2 Diabetes mellitus fdc insulin use: without fdc use Diabetes mellitus complication status: without complication Qualified Code(s): E11.9 - Type 2 diabetes mellitus without complications Condition: Stable Disposition: [facility] Referrals: JALYN MORALES MD [Primary Care Provider] - Follow up as needed
[2017-08-25] MEDS ORDERED: NORMAL SALINE 1000 ML 2,000 ML IV ONE (07:50)
[2017-08-25] MEDS ORDERED: ONDANSETRON HCL INJ/PF 4 MG/2 ML SDV IV ONE ×3 (07:51→11:24)
[2017-08-25] MEDS ORDERED: HYDROMORPHONE HCL INJ/PF 2 MG/ML AMPULE IV ONE (07:51)
[2017-08-25 08:18] LABS: ABSOLUTE EOSINOPHILS # (AUTO) 0.1 10^3/uL (0.0-0.6); ABSOLUTE MONOCYTES (AUTO) 1.1 10^3/uL (0.1-1.4); ABSOLUTE NEUT (AUTO) 8.9 10^3/uL (1.7-8.2); BASOPHILS % (AUTO) 0.3 % (0-2); EOSINOPHILS % (AUTO) 0.5 % (0-6); HEMATOCRIT 35.9 % (36.0-47.0); HEMOGLOBIN 11.8 g/dL (12.0-15.5); LYMPHOCYTES % (AUTO) 16.7 % (13-45); MEAN CORPUSCULAR HGB CONC 32.9 g/dL (32.0-36.0); MEAN CORPUSCULAR VOLUME 88 fl (80-97); MONOCYTES % (AUTO) 8.9 % (3-13); PLATELET COUNT 173 10^3/uL (150-450); RED BLOOD COUNT 4.07 10^6/uL (3.72-5.28); RED CELL DISTRIBUTION WIDTH 15.6 % (11.5-14.0); SEGMENTED NEUTROPHILS % (AUTO) 73.6 % (42-78); TOTAL CELLS COUNTED % (AUTO) 100 %; WHITE BLOOD COUNT 12.1 10^3/uL (4.0-10.5)
[2017-08-25 08:29] LABS: ALANINE AMINOTRANSFERASE 61 U/L (9-52); ALBUMIN 3.6 g/dL (3.5-5.0); ALKALINE PHOSPHATASE 87 U/L (38-126); ANION GAP 16 (5-19); ASPARTATE AMINO TRANSFERASE 56 U/L (14-36); BILIRUBIN,DIRECT 0.4 mg/dL (0.0-0.4); BILIRUBIN,TOTAL 0.4 mg/dL (0.2-1.3); BLOOD UREA NITROGEN 33 mg/dL (7-20); CALCIUM 7.8 mg/dL (8.4-10.2); CARBON DIOXIDE 11 mmol/L (22-30); CHLORIDE 114 mmol/L (98-107); GLUCOSE 123 mg/dL (75-110); SODIUM 140.5 mmol/L (137-145); TOTAL PROTEIN 6.7 g/dL (6.3-8.2)
--- NOTE | 2017-08-25 09:37 | RADIOLOGY REPORT (SQ) ---
EXAM DESCRIPTION: CT ABD/PELVIS NO ORAL OR IV COMPLETED DATE/TIME: 08/25/2017 9:07 am REASON FOR STUDY: abd pain, hx crohns COMPARISON: CT abdomen pelvis 11/11/2016, 11/17/2010 TECHNIQUE: CT scan of the abdomen and pelvis performed without intravenous or oral contrast. Images reviewed with lung, soft tissue, and bone windows. Reconstructed coronal and sagittal MPR images revi ewed. All images stored on PACS. All CT scanners at this facility use dose modulation, iterative reconstruction, and/or weight based d osing when appropriate to reduce radiation dose to as low as reasonably achievable (ALARA). [facility]: Dose Right [facility]: CareDose [facility]: Dose Right [facility]: Teradose 4D [facility]: [employer] RADIATION DOSE: CT Rad equipment meets quality standard of care and radiation dose reduction techniq ues were employed. CTDIvol: 10.9 mGy. DLP: 591 mGy-cm.mGy. LIMITATIONS: None. FINDINGS: Multiple small less than 5 mm calculi are present in the left renal pelvis and upper urete r at the ureteropelvic junction. No hydronephrosis. These findings are best shown on coronal recons truction images 41-43. Left lower pole intrarenal nonobstructive stone less than 5 mm in size on cor onal image 44. Remainder of the left kidney and ureter are unremarkable. No left renal cysts, stones, or masses. Patient is post total colectomy with right lower quadrant ileostomy. No CT evidence of bowel obstruc tion. No free intraperitoneal air or fluid. LOWER CHEST: No significant findings. No nodules or infiltrates. NON-CONTRASTED LIVER, SPLEEN, ADRENALS: Evaluation limited by lack of IV contrast. No identified sign ificant masses. PANCREAS: No masses. No peripancreatic inflammatory changes. GALLBLADDER: No identified stones by CT criteria. No inflammatory changes to suggest cholecystitis. RIGHT KIDNEY AND URETER: No suspicious masses. Assessment limited by lack of IV contrast. No signif icant calcifications. No hydronephrosis or hydroureter. LEFT KIDNEY AND URETER: As above AORTA AND RETROPERITONEUM: No aneurysm. No retroperitoneal masses or adenopathy. BOWEL AND PERITONEAL CAVITY: As above APPENDIX: Surgically absent PELVIS, BLADDER, AND ABDOMINAL WALL:No abnormal masses. No free fluid. Bladder normal. Intact ventra l hernia repair. BONES: No significant findings. OTHER: No other significant finding. IMPRESSION: Multiple less than 5 mm calculi are present in the left renal pelvis and upper ureter at the ureteropelvic junction. No hydronephrosis. Left lower pole intrarenal nonobstructive stone. Post total colectomy with right lower quadrant ileostomy. No bowel obstruction. COMMENT: Quality ID # [id number]: Final reports with documentation of one or more dose reduction techniques (e.g., Automated exposure control, adjustment of the mA and/or kV according to patient size, use of iterative reconstruction technique) TECHNICAL DOCUMENTATION: JOB ID: [id number] 1974 [employer]- All Rights Reserved Reading location - IP/workstation name: [email or web address]
[2017-08-25 10:04] LABS: AMORPHOUS SEDIMENT,URINE TRACE /HPF; APPEARANCE,URINE SLIGHTLY-CLOUDY; BILIRUBIN,URINE NEGATIVE (NEGATIVE); COLOR,URINE YELLOW; GLUCOSE, URINE NEGATIVE (NEGATIVE); KETONES,URINE NEGATIVE (NEGATIVE); LEUKOCYTE ESTERASE,URINE SMALL (NEGATIVE); NITRITE,URINE NEGATIVE (NEGATIVE); PROTEIN,URINE 100 mg/dL (NEGATIVE); URINE SPECIFIC GRAVITY 1.018; UROBILINOGEN,URINE NEGATIVE mg/dL (<2.0)
[2017-08-25] MEDS ORDERED: CEFTRIAXONE INJ 1000 MG VIAL IV ONE (10:17)
[2017-08-25] MEDS ORDERED: NORMAL SALINE 1000 ML 1,000 ML IV ONE ×2 (11:24→11:54)
[2017-08-25] MEDS ORDERED: LOPERAMIDE HCL 2 MG CAPSULE PO ONE (11:43)
[2017-08-25] MEDS ORDERED: METHYLPREDNISOLONE INJ 125 MG/2 ML SDV IV ONE (11:54)
[2017-08-25] MEDS ORDERED: PANTOPRAZOLE SODIUM 40 MG VIAL IV ONE (14:31)
[2017-08-25 16:37] VITALS: BP 132/73
== END 2017-08-25 16:40 | disposition short-term general hospital (02) ==
LOC: ER 06:20
DX: R11.10 Vomiting, unspecified (principal); R19.7 Diarrhea, unspecified; I12.9 Hypertensive chronic kidney disease with stage 1 through stage 4 chronic kidney disease, or unspecified chronic kidney disease; N18.4 Chronic kidney disease, stage 4 (severe); F17.200 Nicotine dependence, unspecified, uncomplicated; E78.00 Pure hypercholesterolemia, unspecified; Z93.2 Ileostomy status; Z90.49 Acquired absence of other specified parts of digestive tract; Z88.0 Allergy status to penicillin
CPT/HCPCS: 36591; 96376; 99285; 96361; 96375; 96365; 96367; 36415; 87040; 87045; 87086; 87205; 85025; 85652; 86140; 87077; 80053; 81001; 87186; 87493; 74176; J2930; J1170; S0164; J0696; J2405; J7030

== ENCOUNTER → 2018-05-25 | Outpatient (CLI) | payer OTHER ==
[2018-05-25 08:25] LABS: HEMATOCRIT 37.5 % (36.0-47.0); MEAN CORPUSCULAR HEMOGLOBIN 28.1 pg (27.0-33.4); MEAN CORPUSCULAR VOLUME 88 fl (80-97); PLATELET COUNT 262 10^3/uL (150-450); RED BLOOD COUNT 4.27 10^6/uL (3.72-5.28); WHITE BLOOD COUNT 23.4 10^3/uL (4.0-10.5)
[2018-05-25 08:46] LABS: ALANINE AMINOTRANSFERASE 35 U/L (9-52); ALBUMIN 3.5 g/dL (3.5-5.0); ALKALINE PHOSPHATASE 103 U/L (38-126); ANION GAP 13 (5-19); ASPARTATE AMINO TRANSFERASE 27 U/L (14-36); BILIRUBIN,DIRECT 0.3 mg/dL (0.0-0.4); BILIRUBIN,TOTAL 0.4 mg/dL (0.2-1.3); BLOOD UREA NITROGEN 21 mg/dL (7-20); CALCIUM 9.3 mg/dL (8.4-10.2); CARBON DIOXIDE 20 mmol/L (22-30); CHLORIDE 105 mmol/L (98-107); CHOLESTEROL 137.32 mg/dL (0-200); GLUCOSE 113 mg/dL (75-110); PHOSPHORUS 3.9 mg/dL (2.5-4.5); POTASSIUM 4.5 mmol/L (3.6-5.0); SODIUM 138.1 mmol/L (137-145); TOTAL PROTEIN 6.3 g/dL (6.3-8.2); TRIGLYCERIDES 165 mg/dL (<150)
[2018-05-25 08:58] LABS: DIRECT LDL 78 mg/dL (<100)
[2018-05-25 09:02] LABS: ABSOLUTE LYMPHOCYTES# (MANUAL) 4.2 10^3/uL (0.5-4.7); ABSOLUTE MONOCYTES # (MANUAL) 0.5 10^3/uL (0.1-1.4); ABSOLUTE NEUTROPHILS# (MANUAL) 18.7 10^3/uL (1.7-8.2); BASOPHILS % (MANUAL) 0 % (0-2); EOSINOPHILS % (MANUAL) 0 % (0-6); LYMPHOCYTES % (MANUAL) 18 % (13-45); MONOCYTES % (MANUAL) 2 % (3-13); POLYCHROMASIA SLIGHT; SEGMENTED NEUTROPHILS % (MAN) 80 % (42-78); TOTAL CELLS COUNTED 100; TOXIC GRANULATION SLIGHT
[2018-05-25 09:03] LABS: PLATELET COMMENT ADEQUATE
[2018-05-25 09:04] LABS: ERYTHROCYTE SEDIMENTATION RATE 63 mm/hr (0-30)
[2018-05-25 09:44] LABS: FOLATE > 20.00 ng/mL (>2.76)
== END ==
LOC: CCC 07:07
DX: K50.919 Crohn's disease, unspecified, with unspecified complications (principal); I10 Essential (primary) hypertension; E11.8 Type 2 diabetes mellitus with unspecified complications; E55.9 Vitamin D deficiency, unspecified
CPT/HCPCS: 36415; 80053; 80061; 82306; 82607; 82746; 83036; 83735; 84100; 84443; 85025; 85652; 86140

== ENCOUNTER → 2018-08-01 | Outpatient (CLI) | payer MEDICAID ==
[2018-08-01 11:47] LABS: ANION GAP 16 (5-19); BLOOD UREA NITROGEN 47 mg/dL (7-20); CALCIUM 9.8 mg/dL (8.4-10.2); CARBON DIOXIDE 13 mmol/L (22-30); CHLORIDE 110 mmol/L (98-107); GLUCOSE 148 mg/dL (75-110); POTASSIUM 5.5 mmol/L (3.6-5.0); SODIUM 138.6 mmol/L (137-145)
== END ==
LOC: OD 10:30
PROVIDERS: ATTEND Internal Medicine Nephrology
DX: E87.6 Hypokalemia (principal)
CPT/HCPCS: 36415; 80048

== ENCOUNTER → 2018-08-10 | Outpatient (CLI) | payer MEDICAID ==
[2018-08-10 11:32] LABS: ANION GAP 12 (5-19); BLOOD UREA NITROGEN 47 mg/dL (7-20); CALCIUM 9.5 mg/dL (8.4-10.2); CARBON DIOXIDE 13 mmol/L (22-30); CHLORIDE 111 mmol/L (98-107); GLUCOSE 192 mg/dL (75-110); POTASSIUM 5.1 mmol/L (3.6-5.0); SODIUM 136.4 mmol/L (137-145)
== END ==
LOC: OD 09:59
PROVIDERS: ATTEND Internal Medicine Nephrology
DX: E87.6 Hypokalemia (principal)
CPT/HCPCS: 36415; 80048

== ENCOUNTER 2018-09-03 09:03 | Emergency (ER) | payer MEDICAID ==
--- NOTE | 2018-09-03 09:43 | ER Document Report ---
ED GI/ - General Stated Complaint: ABDOMINAL PAIN Time Seen by Provider: 09/03/18 09:08 Primary Care Provider: [facility] [Provider Group] - Follow up as needed [facility] [Provider Group] - Follow up as needed JONATHAN CARRENO MD [ACTIVE STAFF] - Follow up as needed JALYN MARTINEZ MD [COMMUNITY BASED STAFF] - Follow up tomorrow Gabriella RAHMAN MD [ACTIVE STAFF] - Follow up as needed Mode of Arrival: Medic Information source: Patient Notes: Patient presents complaining of right-sided abdominal pain and flank pain that started around 3:00 this morning. Patient does complain of some nausea. Patient reports pressure with voiding. Patient has a history of kidney stones and suspects the same today. TRAVEL OUTSIDE OF THE [place] IN LAST 30 DAYS: No - HPI Patient complains to provider of: Abdominal pain, Dysuria, Flank pain Onset: This morning Timing/Duration: Sudden Quality of pain: Sharp Pain Level: 4 Location: RUQ, Right flank Vaginal bleeding (Compared to normal period): None Associated symptoms: Dysuria, Nausea, Urinary hesitancy. denies: Constipation, Diarrhea, Fever, Loss of appetite Exacerbated by: Denies Relieved by: Denies Similar symptoms previously: Yes Recently seen / treated by doctor: No - Related Data Allergies/Adverse Reactions: Penicillins Allergy (Unknown, Verified 11/11/16 15:12) tetracycline [Tetracycline] Allergy (Unknown, Verified 11/11/16 15:12) Iodinated Contrast- Oral and IV Dye [IV Dye, Iodine Containing] Allergy (Verified 11/11/16 15:12) Liraglutide [From Victoza] Allergy (Verified 11/11/16 15:12) Past Medical History - General Information source: Patient - Social History Smoking Status: Current Every Day Smoker Frequency of alcohol use: Occasional Drug Abuse: None Occupation: none Lives with: Family Family History: Reviewed & Not Pertinent, Hypertension - Past Medical History Cardiac Medical History: Reports: Hx Hypercholesterolemia, Hx Hypertension Endocrine Medical History: Reports: Hx Diabetes Mellitus Type 2 - no meds Renal/ Medical History: Reports: Hx Renal Insufficiency. Denies: Hx Peritoneal Dialysis GI Medical History: Reports: Hx Crohn's Disease Musculoskeletal Medical History: Reports Hx Arthritis - RA, ankylosing spondyli tis Past Surgical History: Reports: Hx Bowel Surgery - colostomy, iliostomy, Hx Section, Hx Cholecystectomy, Hx Herniorrhaphy, Hx Vascular Surgery - Immunizations Hx Diphtheria, Pertussis, Tetanus Vaccination: Yes Hx Pneumococcal Vaccination: 03/05/13 Review of Systems - Review of Systems Constitutional: No symptoms reported. denies: Fever, Recent illness EENT: No symptoms reported Cardiovascular: No symptoms reported. denies: Chest pain Respiratory: No symptoms reported. denies: Cough, Short of breath Gastrointestinal: Abdominal pain, Nausea. denies: Diarrhea, Vomiting, Poor appetite Genitourinary: Dysuria, Flank pain Female Genitourinary: No symptoms reported Musculoskeletal: Back pain Skin: No symptoms reported Hematologic/Lymphatic: No symptoms reported Neurological/Psychological: No symptoms reported Physical Exam - Vital signs Vitals: Pulse Ox 95 09/03/18 09:06 - General General appearance: Appears well, Alert In distress: None - HEENT Head: Normocephalic, Atraumatic Eyes: Normal Conjunctiva: Normal Nasal: Normal Mouth/Lips: Normal Mucous membranes: Normal Neck: Normal, Supple. No: Lymphadenopathy - Respiratory Respiratory status: No respiratory distress Chest status: Nontender Breath sounds: Normal. No: Rales, Rhonchi, Stridor, Wheezing Chest palpation: Normal - Cardiovascular Rhythm: Regular Heart sounds: S1 appreciated, S2 appreciated - Abdominal Inspection: Other - ileostomy Distension: No distension Bowel sounds: Normal Tenderness: Tender - epigastric, RUQ, R middle abd tenderness - Back Back: CVA tenderness - mild right - Extremities General upper extremity: Normal inspection, Normal ROM General lower extremity: Normal inspection, Normal ROM - Neurological Neuro grossly intact: Yes Cognition: Normal Brock Coma Scale Eye Opening: Spontaneous [place] Coma Scale Verbal: Oriented [place] Coma Scale Motor: Obeys Commands Brock Coma Scale Total: 15 - Psychological Associated symptoms: Normal affect, Normal mood - Skin Skin Temperature: Warm Skin Moisture: Dry Skin Color: Normal Course - Re-evaluation Re-evalutation: 09/03/18 12:[address] Booker regarding patient presentation and diagnostic evaluation, recommends consultation with patient's primary doctor as well as urology. Called and spoke with patient's primary doctor Dr. Martinez and reviewed patient's most recent outpatient laboratory studies. Patient did have lab work performed on 08/24/2018 and her white blood cell count at that time was 21,000. Patient's BUN and creatinine were 43 and 3.4 respectively. Call placed to [facility] for consultation with urology. 09/03/18 12:[address] Ayala, urology at [facility]. Discussed pt's diagnostic test results as well as CT report finding. Discussed with Dr. Ayala patient's previous CT report findings as well. Suspect patient likely has infection as CT scan should likely show an obstructing stone if there was one. Patient with only mild hydro-nephrosis noted on impression. Recommends outpatient follow-up with urology as well as nephrology. Called and consulted again with patient's primary doctor Dr. Martinez who states that patient had plans to follow-up with [facility] but had never actually made the appointment. Dr. Martinez is aware of the need for urgent urology as well as nephrology follow-up. Dr. 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 Dr. Martinez agrees with plan to have patient call the office to make follow-up appointment to follow-up today's ER visit. - Vital Signs Vital signs: Temp Pulse Resp BP Pulse Ox 97.9 F 72 18 141/58 H 96 09/03/18 14:06 09/03/18 09:09 09/03/18 14:39 09/03/18 14:39 09/03/18 14:01 - Laboratory Result Diagrams: 09/03/18 09:45 09/03/18 09:45 Laboratory results interpreted by me: 09/03/18 09/03/18 09/03/18 09:45 09:45 10:36 WBC 25.8 H Hgb 11.8 L RDW 16.1 H Seg Neuts % (Manual) 81 H Lymphocytes % (Manual) 12 L Abs Neuts (Manual) 20.9 H Abs Monocytes (Manual) 1.8 H Sodium 136.2 L Potassium 5.3 H Chloride 116 H Carbon Dioxide 11 L BUN 42 H Creatinine 3.69 H Est GFR ( Amer) 15 L Est GFR (Non-Af Amer) 13 L Glucose 145 H Total Protein 6.2 L Albumin 3.4 L Lipase 567.4 H Urine Protein 30 H Urine Blood SMALL H Ur Leukocyte Esterase TRACE H - EKG Interpretation by Mn EKG shows normal: Sinus rhythm Rate: Normal When compared to previous EKG there are: No significant change Additional EKG results interpreted by me: 09/03/18 10:[address] elevation, no T wave inversion, QTC 449 Discharge - Discharge Clinical Impression: Pyelonephritis, Left renal mass, left ureteral mass, chronically elevated white blood cell co CKD (chronic kidney disease) Qualifiers: Chronic kidney disease stage: stage 4 (severe) Qualified Code(s): N18.4 - Chronic kidney disease, stage 4 (severe) Condition: Stable Disposition: HOME, SELF-CARE Instructions: Cephalexin ([facility]), Growth or Mass, Pending Workup ([facility]), Pyelonephritis ([facility]), Rocephin ([facility]) Additional Instructions: Return immediately for any new or worsening symptoms: Increased pain, fever, vomiting or any new or concerning symptoms. Followup with your primary care provider, call today to make a followup appointment It is extremely important that you follow-up with both nephrology as well as urology for further management. There was a lesion noted on your left kidney and left ureter that will need further evaluation as they are worrisome for cancer. Urine culture is pending, we will call if you need any different treatment. Prescriptions: Cefaclor [Ceclor 250 mg Capsule] 1 cap PO TID #21 capsule Hydrocodone/Acetaminophen [[place] 5-325 mg Tablet] 1 tab PO Q6 PRN #15 tablet PRN Reason: Referrals: [facility] [Provider Group] - Follow up as needed JONATHAN CARRENO MD [ACTIVE STAFF] - Follow up as needed Gabriella RAHMAN MD [ACTIVE STAFF] - Follow up as needed JALYN MARTINEZ MD [COMMUNITY BASED STAFF] - Follow up tomorrow [facility] [Provider Group] - Follow up as needed
[2018-09-03 10:05] LABS: HEMATOCRIT 36.9 % (36.0-47.0); HEMOGLOBIN 11.8 g/dL (12.0-15.5); MEAN CORPUSCULAR HEMOGLOBIN 28.9 pg (27.0-33.4); MEAN CORPUSCULAR VOLUME 90 fl (80-97); PLATELET COUNT 217 10^3/uL (150-450); RED BLOOD COUNT 4.09 10^6/uL (3.72-5.28); RED CELL DISTRIBUTION WIDTH 16.1 % (11.5-14.0); WHITE BLOOD COUNT 25.8 10^3/uL (4.0-10.5)
[2018-09-03] MEDS: MORPHINE SULFATE 10 MG/ML INJ IV ONE (10:21)
[2018-09-03] MEDS: ONDANSETRON HCL INJ/PF 4 MG/2 ML SDV IV ONE (10:22)
[2018-09-03 10:23] LABS: ABSOLUTE LYMPHOCYTES# (MANUAL) 3.1 10^3/uL (0.5-4.7); ABSOLUTE MONOCYTES # (MANUAL) 1.8 10^3/uL (0.1-1.4); ABSOLUTE NEUTROPHILS# (MANUAL) 20.9 10^3/uL (1.7-8.2); ALANINE AMINOTRANSFERASE 37 U/L (9-52); ALBUMIN 3.4 g/dL (3.5-5.0); ALKALINE PHOSPHATASE 80 U/L (38-126); ASPARTATE AMINO TRANSFERASE 36 U/L (14-36); BASOPHILS % (MANUAL) 0 % (0-2); BILIRUBIN,DIRECT 0.4 mg/dL (0.0-0.4); BILIRUBIN,TOTAL 0.5 mg/dL (0.2-1.3); BLOOD UREA NITROGEN 42 mg/dL (7-20); CALCIUM 9.7 mg/dL (8.4-10.2); CHLORIDE 116 mmol/L (98-107); EOSINOPHILS % (MANUAL) 0 % (0-6); GLUCOSE 145 mg/dL (75-110); LIPASE 567.4 U/L (23-300); LYMPHOCYTES % (MANUAL) 12 % (13-45); MONOCYTES % (MANUAL) 7 % (3-13); POTASSIUM 5.3 mmol/L (3.6-5.0); SEGMENTED NEUTROPHILS % (MAN) 81 % (42-78); SODIUM 136.2 mmol/L (137-145); TOTAL CELLS COUNTED 100; TOTAL PROTEIN 6.2 g/dL (6.3-8.2)
[2018-09-03 10:26] LABS: ANISOCYTOSIS 1+; POLYCHROMASIA SLIGHT; TOXIC GRANULATION SLIGHT; TOXIC VACUOLATION PRESENT
[2018-09-03 10:29] LABS: PLATELET COMMENT ADEQUATE
[2018-09-03 10:34] LABS: ANION GAP 9 (5-19)
[2018-09-03 10:36] LABS: CARBON DIOXIDE 11 mmol/L (22-30)
[2018-09-03 11:05] LABS: APPEARANCE,URINE SLIGHTLY-CLOUDY; BILIRUBIN,URINE NEGATIVE (NEGATIVE); COLOR,URINE YELLOW; GLUCOSE, URINE NEGATIVE (NEGATIVE); KETONES,URINE NEGATIVE (NEGATIVE); LEUKOCYTE ESTERASE,URINE TRACE (NEGATIVE); NITRITE,URINE NEGATIVE (NEGATIVE); PROTEIN,URINE 30 mg/dL (NEGATIVE); URINE SPECIFIC GRAVITY 1.015; UROBILINOGEN,URINE NEGATIVE mg/dL (<2.0)
--- NOTE | 2018-09-03 11:12 | RADIOLOGY REPORT (SQ) ---
EXAM DESCRIPTION: CT ABD/PELVIS NO ORAL OR IV COMPLETED DATE/TIME: 09/03/2018 10:21 am REASON FOR STUDY: RUQ, R flank, urinary sx COMPARISON: CT ABDOMEN PELVIS 08/25/2017, 11/11/2016, 11/17/2010 RENAL ULTRASOUND 08/22/2016 TECHNIQUE: CT scan of the abdomen and pelvis performed without intravenous or oral contrast. Images reviewed with lung, soft tissue, and bone windows. Reconstructed coronal and sagittal MPR images revi ewed. All images stored on PACS. All CT scanners at this facility use dose modulation, iterative reconstruction, and/or weight based d osing when appropriate to reduce radiation dose to as low as reasonably achievable (ALARA). [facility]: Dose Right [facility]: CareDose [facility]: Dose Right [facility]: Teradose 4D [facility]: [employer] RADIATION DOSE: CT Rad equipment meets quality standard of care and radiation dose reduction techniq ues were employed. CTDIvol: 12.6 mGy. DLP: 633 mGy-cm.mGy. LIMITATIONS: None. FINDINGS: Right-sided perinephric stranding is present in the periureteral fat, with mild right hydr onephrosis and hydroureter down to the ureterovesical junction. No right-sided radiopaque urinary st ones are present. Findings could be seen in pyelonephritis or non radiopaque distal right ureteral s tone. No right-sided renal cysts or masses. LOWER CHEST: No significant findings. No nodules or infiltrates. NON-CONTRASTED LIVER, SPLEEN, ADRENALS: Evaluation limited by lack of IV contrast. Benign fatty 2.3 x 1.6 cm nodule left adrenal gland. Stable 1.6 cm soft tissue nodule left adrenal gland. Liver sple en, right adrenal gland unremarkable PANCREAS: No masses. No peripancreatic inflammatory changes. GALLBLADDER: Contracted. No identified stones by CT criteria. No inflammatory changes to suggest cho lecystitis. RIGHT KIDNEY AND URETER: As above LEFT KIDNEY AND URETER: In the left upper pole collecting system, a 1.4 x 1.5 cm soft tissue mass wit h calcifications present, question urothelial tumor. A 2nd focus of calcification and soft tissue de nsity in the upper left ureter is present 16 mm in length on coronal image 46. Collecting system sto eddie with adjacent blood clot is possible. No left-sided renal cortical cysts or masses. No left hy dronephrosis or hydroureter AORTA AND RETROPERITONEUM: No aneurysm. No retroperitoneal masses or adenopathy. BOWEL AND PERITONEAL CAVITY: Right lower quadrant ostomy with small amount of mesenteric fat protrudi ng through the stoma defect in the anterior abdominal wall on axial image 54. Post total colectomy a nd proctosigmoidectomy. No free intraperitoneal air or fluid. No CT signs of bowel obstruction. APPENDIX: Surgically absent PELVIS, BLADDER, AND ABDOMINAL WALL:No abnormal masses. No free fluid. Bladder normal. Post hysterec tere BONES: No significant findings. OTHER: No other significant finding. IMPRESSION: Right-sided hydronephrosis and hydroureter down to the ureterovesical junction without i dentifiable radiopaque ureteral stone. Findings could be seen in pyelonephritis or non radiopaque ob structing lesion of the distal right ureter. Left upper pole and left proximal ureteral lesions worrisome for urothelial tumor. No left-sided hyd ronephrosis or perinephric stranding. Post total colectomy and proctosigmoidectomy. Right lower quadrant ileostomy with fat containing sto mal hernia, similar compared to prior studies. COMMENT: Quality ID # [id number]: Final reports with documentation of one or more dose reduction techniques (e.g., Automated exposure control, adjustment of the mA and/or kV according to patient size, use of iterative reconstruction technique) TECHNICAL DOCUMENTATION: JOB ID: [id number] [employer]- All Rights Reserved Reading location - IP/workstation name: [email or web address]
[2018-09-03] MEDS: NORMAL SALINE 1000 ML 1,000 ML IV ONE (11:50)
[2018-09-03] MEDS: CEFTRIAXONE 1 GM/D5W RTU 1 GM/50 ML RTUPB IV ONE (12:23)
--- NOTE | 2018-09-03 12:59 | EKG REPORT ---
SEVERITY:- BORDERLINE ECG - SINUS RHYTHM BORDERLINE INFERIOR Q WAVES : Confirmed by: Conner Scott MD 03-Sep-2018 12:58:43
[2018-09-03 14:40] VITALS: BP 141/58
== END 2018-09-03 14:45 | disposition home or self-care (01) ==
LOC: ER 09:03
DX: N12 Tubulo-interstitial nephritis, not specified as acute or chronic (principal); I12.9 Hypertensive chronic kidney disease with stage 1 through stage 4 chronic kidney disease, or unspecified chronic kidney disease; N18.4 Chronic kidney disease, stage 4 (severe); E11.22 Type 2 diabetes mellitus with diabetic chronic kidney disease; N28.89 Other specified disorders of kidney and ureter; D72.829 Elevated white blood cell count, unspecified; R10.9 Unspecified abdominal pain; R11.0 Nausea; R30.0 Dysuria; R39.11 Hesitancy of micturition; F17.200 Nicotine dependence, unspecified, uncomplicated
CPT/HCPCS: 36415; 36591; 51701; 74176; 80053; 81001; 83690; 85025; 87086; 93005; 93010; 96361; 96365; 96375; 99285; J0696; J2270; J2405; J7030

== ENCOUNTER 2018-10-12 04:49 | Inpatient (IN) | payer MEDICAID ==
[2018-10-12 05:40] LABS: HEMATOCRIT 44.5 % (36.0-47.0); HEMOGLOBIN 13.8 g/dL (12.0-15.5); MEAN CORPUSCULAR HEMOGLOBIN 28.6 pg (27.0-33.4); MEAN CORPUSCULAR HGB CONC 30.9 g/dL (32.0-36.0); MEAN CORPUSCULAR VOLUME 92 fl (80-97); PLATELET COUNT 331 10^3/uL (150-450); RED BLOOD COUNT 4.82 10^6/uL (3.72-5.28); RED CELL DISTRIBUTION WIDTH 15.1 % (11.5-14.0)
[2018-10-12 05:59] LABS: ALANINE AMINOTRANSFERASE 72 U/L (9-52); ALBUMIN 4.5 g/dL (3.5-5.0); ALKALINE PHOSPHATASE 156 U/L (38-126); ASPARTATE AMINO TRANSFERASE 62 U/L (14-36); BILIRUBIN,DIRECT 0.7 mg/dL (0.0-0.4); BILIRUBIN,TOTAL 0.7 mg/dL (0.2-1.3); BLOOD UREA NITROGEN 59 mg/dL (7-20); CALCIUM 10.5 mg/dL (8.4-10.2); GLUCOSE 305 mg/dL (75-110); LIPASE 980.6 U/L (23-300); TOTAL PROTEIN 7.8 g/dL (6.3-8.2)
[2018-10-12 06:01] LABS: WHITE BLOOD COUNT 34.5 10^3/uL (4.0-10.5)
[2018-10-12 06:03] LABS: ABSOLUTE LYMPHOCYTES# (MANUAL) 3.8 10^3/uL (0.5-4.7); ABSOLUTE MONOCYTES # (MANUAL) 3.5 10^3/uL (0.1-1.4); ABSOLUTE NEUTROPHILS# (MANUAL) 26.9 10^3/uL (1.7-8.2); BAND NEUTROPHILS % (MANUAL) 1 % (3-5); BASOPHILS % (MANUAL) 1 % (0-2); EOSINOPHILS % (MANUAL) 0 % (0-6); LYMPHOCYTES % (MANUAL) 10 % (13-45); MONOCYTES % (MANUAL) 10 % (3-13); PLATELET COMMENT ADEQUATE; SEGMENTED NEUTROPHILS % (MAN) 77 % (42-78); TOTAL CELLS COUNTED 100
[2018-10-12 06:04] LABS: CHLORIDE 99 mmol/L (98-107); RBC MORPHOLOGY COMMENT NORMO-CYTIC/CHROMIC; SODIUM 134.6 mmol/L (137-145)
[2018-10-12 06:12] LABS: POTASSIUM 6.2 mmol/L (3.6-5.0)
[2018-10-12 06:13] LABS: ANION GAP 28 (5-19); CARBON DIOXIDE 8 mmol/L (22-30)
[2018-10-12] MEDS ORDERED: SODIUM POLYSTYRENE SULFONATE 15 GM/60 ML PO ONE (06:18)
[2018-10-12] MEDS ORDERED: ONDANSETRON HCL INJ/PF 4 MG/2 ML SDV IV ONE (06:18)
[2018-10-12] MEDS ORDERED: RINGERS SOLUTION,LACTATED 1,000 ML IV ONE (06:18)
[2018-10-12] MEDS ORDERED: INSULIN REG, HUMAN 100 UNIT/ML 3 ML VIAL (PYX) IV ONE (06:19)
[2018-10-12] MEDS ORDERED: DEXTROSE 50%-WATER 25 GM/50 ML DISP.SYRIN IV ONE (06:19)
[2018-10-12] MEDS ORDERED: MORPHINE SULFATE 10 MG/ML INJ IV ONE (06:29)
--- NOTE | 2018-10-12 06:46 | ER Document Report ---
ED General - General Chief Complaint: Nausea/Vomiting Stated Complaint: VOMITING Time Seen by Provider: 10/12/18 06:17 Primary Care Provider: ACOSTA JACKSON MD [ASSOCIATE] - Follow up as needed TRAVEL OUTSIDE OF THE [place] IN LAST 30 DAYS: No - HPI Notes: Patient is a 53-year-old female that presents to the emergency department for chief complaint of nausea vomiting and abdominal pain. Patient reports abdominal pain symptoms started 5 days ago. She reports numerous episodes of vomiting daily. She has a sharp epigastric pain as well as a diffuse crampy abdominal pain. She states her abdominal pain is worse with vomiting. She denies any relieving factors. She denies any change in her ostomy output. She has had chills but denies diaphoresis and fevers. Patient states she has chronic renal failure which she has been seeing Dr. Jackson in [place] for her. She was told that she has a candidate for a renal transplant and is in the process of getting an appointment at [facility] to discuss this further. She has not establish care with [facility] yet. She is not currently on dialysis. She does report a history of pancreatitis in the past. She had pancreatitis in the past. Past Medical History: Diabetes, Crohn's Past Surgical History: Cholecystectomy, colostomy Social History: Denies tobacco and alcohol use Family History: Reviewed and noncontributory for presenting illness Allergies: Reviewed, see documented allergy list. REVIEW OF SYSTEMS: CONSTITUTIONAL : No fever chills No diaphoresis No recent illness EENT: No vision changes No congestion No sore throat CARDIOVASCULAR: No chest pain No palpitations RESPIRATORY: No shortness of breath No cough No difficulty breathing GASTROINTESTINAL: abdominal pain nausea vomiting No diarrhea GENITOURINARY: No dysuria No hematuria No difficulty urinating MUSCULOSKELETAL: No back pain No leg pain No arm pain SKIN: No rashes No lesions LYMPHATIC: No swollen, enlarged glands. NEUROLOGICAL: No lightheadedness No headache No weakness No paresthesias PSYCHIATRIC: No anxiety No depression PHYSICAL EXAMINATION: Vital signs reviewed, nursing noted reviewed. GENERAL: Ill-appearing, well-nourished and in no acute distress. HEAD: Atraumatic, normocephalic. EYES: Eyes appear normal, extraocular movements intact, sclera anicteric, conjunctiva are normal. ENT: nares patent, oropharynx clear without exudates. Dry mucous membranes. NECK: Normal range of motion, supple without lymphadenopathy LUNGS: Breath sounds clear to auscultation bilaterally and equal. No wheezes rales or rhonchi. HEART: Regular rate and rhythm without murmurs ABDOMEN: Soft, mild diffuse abdominal tenderness worse in the epigastric and left upper quadrant, thin colostomy output with no ostomy erythema. No rebound, guarding, or rigidity. No masses appreciated. EXTREMITIES: Nontender, good range of motion, trace pretibial edema NEUROLOGICAL: No focal neurological deficits. Moves all extremities spontaneously Motor and sensory grossly intact on exam. PSYCH: Normal mood, normal affect. SKIN: Warm, Dry, normal turgor, no rashes or lesions noted on exposed skin - Related Data Allergies/Adverse Reactions: Penicillins Allergy (Unknown, Verified 11/11/16 15:12) tetracycline [Tetracycline] Allergy (Unknown, Verified 11/11/16 15:12) Iodinated Contrast- Oral and IV Dye [IV Dye, Iodine Containing] Allergy (Verified 11/11/16 15:12) Liraglutide [From Victoza] Allergy (Verified 11/11/16 15:12) Past Medical History - Social History Smoking Status: Never Smoker Family History: Reviewed & Not Pertinent, Hypertension - Past Medical History Cardiac Medical History: Reports: Hx Hypercholesterolemia, Hx Hypertension Endocrine Medical History: Reports: Hx Diabetes Mellitus Type 2 - no meds Renal/ Medical History: Reports: Hx Renal Insufficiency. Denies: Hx Peritoneal Dialysis GI Medical History: Reports: Hx Crohn's Disease Musculoskeletal Medical History: Reports Hx Arthritis - RA, ankylosing spondylitis Past Surgical History: Reports: Hx Bowel Surgery - colostomy, iliostomy, Hx Section, Hx Cholecystectomy, Hx Herniorrhaphy, Hx Vascular Surgery - Immunizations Hx Diphtheria, Pertussis, Tetanus Vaccination: Yes Hx Pneumococcal Vaccination: 03/05/13 Physical Exam - Vital signs Vitals: Temp Pulse Resp BP Pulse Ox 97.7 F 120 H 20 101/88 H 99 10/12/18 05:05 10/12/18 05:05 10/12/18 05:05 10/12/18 05:05 10/12/18 05:05 Course - Re-evaluation Re-evalutation: 10/12/18 06:44 Vitals reviewed. Nursing notes reviewed. Patient was started on IV fluids, Zofran and morphine for symptomatic management. Lab work had been obtained in triage which shows acute pancreatitis with a lipase of greater than 900. Patient also has acute on chronic renal failure with hyperkalemia. Anion gap is 28 concerning for uremia. Patient is awake and conversational but appears somewhat somnolent, possibly from uremia. VBG has been added on. Patient also has a significant leukocytosis. She is on daily steroids which may be the cause however it is higher than her baseline. Blood culture and urine culture have been added on. With patient's acute on chronic renal failure, hyperkalemia and likely uremia she is a candidate for emergent dialysis. Patient was given IV calcium, insulin and D50. She has refused Kayexalate. I am currently awaiting a callback from Dr. Mcgovern to arrange dialysis. Patient is on telemetry monitoring. 10/12/18 08:40 Patient's care was discussed with Dr. Mcgovern who will arrange for her to get dialysis today. Her pH did come back at 6.9 and she has a lactic acidosis of 5.0. Patient was given bicarb bolus and started on bicarb infusion. Dr. Jackson was consulted to place femoral dialysis catheter, he is currently in the room with the patient placing the catheter. Patients care was discussed with Dr. Ybarra who will admit her to the ICU. Patient CT scan does show possible renal mas and metastasis that will be followed as an inpatient.s patient in agreement with plan of care and stable at time of admission. Laboratory 10/12/18 10/12/18 10/12/18 05:30 05:30 06:48 WBC 34.5 H* RBC 4.82 Hgb 13.8 Hct 44.5 MCV 92 MCH 28.6 MCHC 30.9 L RDW 15.1 H Plt Count 331 Total Counted 100 Seg Neutrophils % Not Reportable Seg Neuts % (Manual) 77 Band Neutrophils % 1 L Lymphocytes % Not Reportable Lymphocytes % (Manual) 10 L Atypical Lymphs % 1 Monocytes % Not Reportable Monocytes % (Manual) 10 Eosinophils % Not Reportable Eosinophils % (Manual) 0 Basophils % Not Reportable Basophils % (Manual) 1 Absolute Neutrophils Not Reportable Abs Neuts (Manual) 26.9 H Absolute Lymphocytes Not Reportable Abs Lymphs (Manual) 3.8 Absolute Monocytes Not Reportable Abs Monocytes (Manual) 3.5 H Absolute Eosinophils Not Reportable Absolute Eos (Manual) 0.0 Absolute Basophils Not Reportable Abs Basophils (Manual) 0.3 H Platelet Comment ADEQUATE RBC Morph Comment NORMO-CYTIC/CHROMIC PT INR APTT VBG pH VBG pCO2 VBG HCO3 VBG Base Excess Sodium 134.6 L Potassium 6.2 H* Chloride 99 Carbon Dioxide 8 L* Anion Gap 28 H BUN 59 H Creatinine 8.35 H Est GFR ( Amer) 6 L Est GFR (Non-Af Amer) 5 L Glucose 305 H POC Glucose Lactic Acid 5.0 H Calcium 10.5 H Total Bilirubin 0.7 Direct Bilirubin 0.7 H Neonat Total Bilirubin Not Reportable Neonat Direct Bilirubin Not Reportable Neonat Indirect Bili Not Reportable AST 62 H ALT 72 H Alkaline Phosphatase 156 H Total Protein 7.8 Albumin 4.5 Lipase 980.6 H 10/12/18 10/12/18 10/12/18 06:48 06:48 07:17 WBC RBC Hgb Hct MCV MCH MCHC RDW Plt Count Total Counted Seg Neutrophils % Seg Neuts % (Manual) Band Neutrophils % Lymphocytes % Lymphocytes % (Manual) Atypical Lymphs % Monocytes % Monocytes % (Manual) Eosinophils % Eosinophils % (Manual) Basophils % Basophils % (Manual) Absolute Neutrophils Abs Neuts (Manual) Absolute Lymphocytes Abs Lymphs (Manual) Absolute Monocytes Abs Monocytes (Manual) Absolute Eosinophils Absolute Eos (Manual) Absolute Basophils Abs Basophils (Manual) Platelet Comment RBC Morph Comment PT 15.5 H INR 1.17 APTT 35.6 VBG pH 6.95 L* VBG pCO2 39.2 VBG HCO3 8.4 L VBG Base Excess -23.4 Sodium Potassium Chloride Carbon Dioxide Anion Gap BUN Creatinine Est GFR ( Amer) Est GFR (Non-Af Amer) Glucose POC Glucose 343 H Lactic Acid Calcium Total Bilirubin Direct Bilirubin Neonat Total Bilirubin Neonat Direct Bilirubin Neonat Indirect Bili AST ALT Alkaline Phosphatase Total Protein Albumin Lipase Abdomen/Pelvis CT 10/12/18 06:47 IMPRESSION: 1. Continued abnormalities in the left upper pole and left proximal ureter worrisome for urothelial tumor. If not previously performed recommend urology consultation for left retrograde pyelogram. 2. New left inguinal adenopathy that may be reactive or metastatic. Recommend clinical correlation and appropriate follow-up. 3. Other chronic findings as above. Chest X-Ray 10/12/18 06:47 IMPRESSION: No acute cardiopulmonary abnormality copyright 2011 [employer]- All Rights Reserved - Vital Signs Vital signs: Temp Pulse Resp BP Pulse Ox 98.1 F 120 H 24 H 113/71 97 10/12/18 06:54 10/12/18 05:05 10/12/18 08:01 10/12/18 08:01 10/12/18 07:31 - Laboratory Result Diagrams: 10/12/18 05:30 10/12/18 05:30 Laboratory results interpreted by me: 10/12/18 10/12/18 10/12/18 05:30 05:30 06:48 WBC 34.5 H* MCHC 30.9 L RDW 15.1 H Band Neutrophils % 1 L Lymphocytes % (Manual) 10 L Abs Neuts (Manual) 26.9 H Abs Monocytes (Manual) 3.5 H Abs Basophils (Manual) 0.3 H PT VBG pH VBG HCO3 Sodium 134.6 L Potassium 6.2 H* Carbon Dioxide 8 L* Anion Gap 28 H BUN 59 H Creatinine 8.35 H Est GFR ( Amer) 6 L Est GFR (Non-Af Amer) 5 L Glucose 305 H POC Glucose Lactic Acid 5.0 H Calcium 10.5 H Direct Bilirubin 0.7 H AST 62 H ALT 72 H Alkaline Phosphatase 156 H Lipase 980.6 H 10/12/18 10/12/18 10/12/18 06:48 06:48 07:17 WBC MCHC RDW Band Neutrophils % Lymphocytes % (Manual) Abs Neuts (Manual) Abs Monocytes (Manual) Abs Basophils (Manual) PT 15.5 H VBG pH 6.95 L* VBG HCO3 8.4 L Sodium Potassium Carbon Dioxide Anion Gap BUN Creatinine Est GFR ( Amer) Est GFR (Non-Af Amer) Glucose POC Glucose 343 H Lactic Acid Calcium Direct Bilirubin AST ALT Alkaline Phosphatase Lipase - EKG Interpretation by Me Additional EKG results interpreted by me: 10/12/18 06:45 Interpreted by myself 1007: Normal sinus rhythm, rate 74, normal axis, no ectopy, hyperacute T waves, no STEMI Critical Care Note - Critical Care Note Total time excluding time spent on procedures (mins): 40 Comments: Critical care time 40 exclusive from separate billable procedures for a patient requiring complex medical decision making, and high potential for clinical deterioration. Time spent obtaining history from patient or surrogate, discussions with consultants, development of treatment plan with patient or surrogate, evaluation of patient's response to treatment, examination of patient, ordering and performing treatments and interventions, ordering and review of laboratory studies, re-evaluation of patient's condition, ordering and review of radiographic studies and review of old charts Discharge - Discharge Clinical Impression: Hyperkalemia, Hyperglycemia, High anion gap metabolic acidosis, Lactic acidosis Pancreatitis Qualifiers: Chronicity: acute Pancreatitis type: other Acute pancreatitis complication: unspecified Qualified Code(s): K85.80 - Other acute pancreatitis without necrosis or infection Acute on chronic renal failure Qualifiers: Acute renal failure type: unspecified Chronic kidney disease stage: unspecified stage Qualified Code(s): N17.9 - Acute kidney failure, unspecified Condition: Stable Disposition: ADMITTED INPATIENT Admitting Provider: Tate (Hospitalist) Unit Admitted: ICU Referrals: ACOSTA JACKSON MD [ASSOCIATE] - Follow up as needed
[2018-10-12 07:04] LABS: VENOUS BLOOD BASE EXCESS -23.4 mmol/L; VENOUS BLOOD HCO3 8.4 mmol/L (20-32); VENOUS BLOOD PCO2 39.2 mmHg (35-63)
[2018-10-12 07:08] LABS: VENOUS BLOOD PH 6.95 (7.30-7.42)
[2018-10-12] MEDS ORDERED: NORMAL SALINE 1000 ML 1,000 ML IV ONE (07:25)
--- NOTE | 2018-10-12 07:36 | RADIOLOGY REPORT (SQ) ---
CT abdomen and pelvis without contrast on 10/12/2018 at 7:04 AM CLINICAL INDICATION: Periumbilical abdominal pain TECHNIQUE: Multiple axial images are obtained throughout the abdomen and pelvis without the administration of contrast. This exam was performed according to our departmental dose-optimization program, which includes automated exposure control, adjustment of the mA and/or kV according to patient size and/or use of iterative reconstruction technique. Total DLP is 504.29 mGy*cm. COMPARISON: 09/03/2018 FINDINGS: Abdomen: The lung bases are clear. Vascular calcifications are noted. Stable benign 2.4 cm left adrenal myelolipoma is noted with no follow-up recommended. There is a stable 1.6 cm left adrenal nodule that is homogeneous and measures 7 Hounsfield units and is consistent with an adenoma with no follow-up recommended. There is stable rounded soft tissue density with peripheral calcification abnormality in the upper pole collecting system of the left kidney. There is a stable similar appearance of soft tissue abnormality with calcification in the left proximal ureter. These again may represent urothelial tumors. Would recommend urology consultation for left retrograde pyelogram. There are no renal or ureteral stones and no hydronephrosis. The unenhanced solid abdominal organs are otherwise unremarkable. There is no abdominal adenopathy. There is no free fluid or free air within the abdomen. Patient appears to be status post a total colectomy with right lower quadrant ileostomy. The abdominal portion of the GI tract is otherwise unremarkable. The IVC is flattened suggesting hypovolemia. Pelvis: Pelvic organs appear unremarkable by CT. No free fluid is noted in the pelvis. There is an enlarged left inguinal lymph node measuring 2.7 x 1.5 cm. This could be metastatic or reactive. Recommend clinical correlation and appropriate follow-up. There is no other pelvic adenopathy. Small bowel anastomosis is noted in the left pelvis. Pelvic portion of the GI tract is otherwise unremarkable. Degenerative changes are noted in the spine. There is an old compression fracture at L3. IMPRESSION: 1. Continued abnormalities in the left upper pole and left proximal ureter worrisome for urothelial tumor. If not previously performed recommend urology consultation for left retrograde pyelogram. 2. New left inguinal adenopathy that may be reactive or metastatic. Recommend clinical correlation and appropriate follow-up. 3. Other chronic findings as above.
[2018-10-12 07:39] LABS: INTERNATIONAL RATION (INR) 1.17; PROTHROMBIN TIME 15.5 SEC (11.4-15.4)
[2018-10-12 07:40] LABS: PARTIAL THROMBOPLASTIN TIME 35.6 SEC (23.5-35.8)
--- NOTE | 2018-10-12 07:55 | RADIOLOGY REPORT (SQ) ---
EXAM DESCRIPTION: XR CHEST 1 VIEW COMPLETED DATE/TME: 10/12/2018 06:47 CLINICAL HISTORY: 53 years, Female, cough COMPARISON: 07/28/2016 NUMBER OF VIEWS: One TECHNIQUE: AP view of the chest LIMITATIONS: None. FINDINGS: Lungs are clear. The heart is normal in size. There is no pneumothorax or pleural effusion. The left chest wall port terminates near the junction of the left brachiocephalic vein and SVC. There is no acute fracture. IMPRESSION: No acute cardiopulmonary abnormality copyright 2010 [employer]- All Rights Reserved
[2018-10-12] MEDS ORDERED: DEXTROSE 5%-WATER 1000 ML 1,000 ML with SODIUM BICARBONATE 150 MEQ IV PRN ×2 (08:28)
[2018-10-12] MEDS ORDERED: SODIUM BICARBONATE 8.4% INJ 50 MEQ/50 ML DISP.SYRIN IV ONE (08:29)
[2018-10-12] MEDS ORDERED: ACETAMINOPHEN 325 MG TABLET PO PRN (09:00)
[2018-10-12] MEDS ORDERED: ONDANSETRON HCL INJ/PF 4 MG/2 ML SDV IV PRN (09:00)
[2018-10-12] MEDS ORDERED: VANCOMYCIN HCL 0 MG in DEXTROSE 5%-WATER 250 ML IV NR (09:15)
[2018-10-12] MEDS ORDERED: DEXTROSE 50%-WATER 25 GM/50 ML DISP.SYRIN IV PRN ×2 (09:43)
[2018-10-12] MEDS ORDERED: GLUCAGON,HUMAN RECOMB 1 MG INJ IM PRN (09:43)
[2018-10-12] MEDS ORDERED: DEXTROSE 40% GEL 15 GM TUBE PO PRN ×2 (09:43)
[2018-10-12] MEDS ORDERED: HYDROCORTISONE SOD SUCCINATE INJ/PF 100 MG/2 ML SDV IV ONE (11:15)
[2018-10-12] MEDS: INSULIN LISPRO 100 UNIT/ML 3 ML VIAL SUBCUT SCH ×3 (11:48→23:02)
--- NOTE | 2018-10-12 12:19 | OPERATIVE REPORT E ---
Operative Report NAME: DARRELL OLIVARES : 1965 AGE: 53Y DATE OF SURGERY: 10/12/2018 ROOM: ED11 PREOPERATIVE DIAGNOSIS: The patient needed emergency dialysis and needed access. POSTOPERATIVE DIAGNOSIS: The patient needed emergency dialysis and needed access. OPERATION: Placement of right femoral vein trialysis catheter under ultrasound guidance. SURGEON: TESS AMOS M.D. ANESTHESIA: Local. PROCEDURE: After adequate positioning of the patient on a slight reverse Trendelenburg position, the right groin was then prepped and draped in the usual sterile fashion. With the use of the ultrasound, right femoral vein was identified and local anesthesia infiltrated on the skin. Next, a needle was inserted to the femoral vein under ultrasound guidance. Dark, nonpulsatile blood was noted. A guidewire was then passed through the needle and the needle pulled out. The puncture site was then dilated. Next, a trialysis 20 cm long catheter was inserted through the guidewire, inserted all the way to the hub. All the ports aspirated blood easily and instilled saline easily. Catheter was then anchored to the skin with 3-0 Nylon. Sterile dressing was then placed over the catheter. The patient tolerated the procedure well. DICTATING PHYSICIAN: TESS AMOS M.D. [id number] [facility]#: [id number] ID: [id number] JOB#: [id number] ACCT: [id number] cc:TESS AMOS M.D. >
[2018-10-12] MEDS: FAMOTIDINE 20 MG TABLET PO SCH ×2 (13:23→23:01)
[2018-10-12] MEDS ORDERED: LEVOFLOXACIN 750 MG/D5W RTU 750 MG/150 ML RTUPB IV SCH (13:30)
[2018-10-12 13:35] LABS: ARTERIAL BLOOD BASE EXCESS -5.9 mmol/L; ARTERIAL BLOOD FIO2 ROOM AIR; ARTERIAL BLOOD H2CO3 0.95 mmol/L (1.05-1.35); ARTERIAL BLOOD HCO3 18.2 mmol/L (20-24); ARTERIAL BLOOD O2 SATURATION 95.9 % (94-98); ARTERIAL BLOOD PCO2 31.4 mmHg (35-45); ARTERIAL BLOOD PH 7.38 (7.35-7.45); ARTERIAL BLOOD PO2 80.5 mmHg (80-100); ARTERIAL BLOOD TOTAL CO2 19.2 mmol/L (21-25)
[2018-10-12] MEDS ORDERED: VANCOMYCIN HCL 500 MG in DEXTROSE 5%-WATER 100 ML IV SCH (14:00)
[2018-10-12] MEDS: HEPARIN SOD (PORCINE) 5,000 UNIT/ML 1 ML SYRINGE SUBCUT SCH ×2 (15:39→23:04)
--- NOTE | 2018-10-12 16:01 | PDOC CONSULTATION ---
Consultation Consult Date: 10/12/18 Provider Consulted: Gabriella RAHMAN History of Present Illness Admission Date/PCP: 10/12/18 09:00 JALYN MORALES MD History of Present Illness: DARRELL OLIVARES is a 53 year old female with a long-standing history of Diabetes mellitus, hypertension and complicated Crohn's disease who has had chronic high volume output through her ileostomy between 10 and 15 times a day has been experiencing nausea and vomiting for the last 5 to 6 days. Along with this she is also been developing a progressive mid umbilical pain which is been getting worse that is also made her limit her intake. Over the last couple of days she also began to get orthostatic. No history of any bloody stools. No history of any fever, chills or rigors. She says the high output ileostomy is going on for many years since initial diagnosis in 2005. She continues to see multiple network security engineer including work-up at [place] for the same but has not been able to control this high output ileostomy. She says steroids apparently does not work with her.She has had initial surgery in 2005 with multiple revi sions for complications including multiple hernias. Does not recall any history of fistula but thinks she has had history of adhesions. She has been seeing my partner Dr. Snider in [place] for advancing CKD 4. She says her creatinine was around 4 when she last saw him couple of months ago. She was advised ESRD on dialysis preparations but she refused and was then advised to get herself on the transplant list and hopefully can find a live donor transplant and avoid dialysis completely. However she refused that also because of her handicapped son at home who is completely dependent on her. She had also refused to get any form of dialysis access. She recalls that she had an attack of renal colic secondary to nephrolithiasis couple of weeks ago and her creatinine at the ER had gone up to 4+. She however did not inform Dr. Snider of her worsening renal functions. She is has had one attack of pancreatitis couple of years ago after she was put on Victoza. Evaluation in the ER revealed that the patient was hypotensive and had severe leukocytosis of 35+, got worsening renal functions with a creatinine at 8+, potassium was 6+ and severe acidosis. She was also been found to have acute pancreatitis. CT scan done of the abdomen showed that she had calcified abnormality in the left upper pole and left proximal ureter worrisome for urothelial tumors. She also had a new left inguinal lymphadenopathy. Recommended urology consult for retrograde pyelogram and interventions. She was begun on IV fluid resuscitation, pancultured and begun on antibiotics, started IV Steroids and admitted for management of acute oliguric renal failure. At this point I have initiated hemodialysis given her worsening oliguric renal functions with severe hyperkalemia/ gap acidosis in the current settings. She had a right temporary femoral catheter placed and currently is being seen in the ICU undergoing dialysis. Blood pressure is tenuous and she has already had 3 L of fluid. She is awake alert and oriented and talking well and in no acute distress. She has got mild to moderate pain around the periumbilical region but is not having any acute distress. She is not having any nausea vomiting. Discussions were done extensively about dialysis. She knew that this procedure was in the making from multiple discussions done with Dr. Snider and therefore she was very well aware of the procedure and its complications and she is comfortable with the dialysis as is happening. She is undergoing dialysis without any issues other than her tenuous blood pressure. Past Medical History Cardiac Medical History: Reports: Hyperlipidemia, Hypertension-primary Endocrine Medical History: Reports: Diabetes Mellitus Type 2 - no meds Renal/ Medical History: Reports: Chronic Kidney Disease Stage IV GI Medical History: Reports: Crohn's Disease Musculoskeltal Medical History: Reports: Arthritis - RA, ankylosing spondylitis Past Surgical History Past Surgical History: Reports: Section, Cholecystectomy, Herniorrhaphy, Vascular Surgery Social History Smoking Status: Current Every Day Smoker Cigarettes Packs Per Day: 1 Number of Years Smokin Last Time Smoked: 10/10/2018 Frequency of Alcohol Use: Rare Hx Recreational Drug Use: No Drugs: None Hx Prescription Drug Abuse: No - Advance Directive Resuscitation Status: Full Code Family History Parental Family History Reviewed: Yes - Negative for ESRD Children Family History Reviewed: No Sibling(s) Family History Reviewed.: No Medication/Allergy Home Medications: Atenolol [Tenormin] 50 mg PO DAILY 08/25/17 Cyanocobalamin (Vitamin B-12) [B-12] 1,000 mcg PO DAILY 08/25/17 Fluoxetine HCl 40 mg PO DAILY 08/25/17 Glipizide [Glipizide Xl] 10 mg PO DAILY 08/25/17 Omeprazole 40 mg PO DAILY 08/25/17 Ondansetron HCl [Zofran 4 mg Tablet] 1 tab PO Q8 PRN 08/25/17 Pravastatin Sodium [Pravachol] 20 mg PO QHS 08/25/17 Prednisone 10 mg PO DAILY 08/25/17 Cyanocobalamin (Vitamin B-12) [Vitamin B-12 Inj 1000 Mcg/1 ml Vial] 1,000 mcg IM .MONTHLY 10/12/18 Allergies/Adverse Reactions: Penicillins Allergy (Unknown, Verified 11/11/16 15:12) tetracycline [Tetracycline] Allergy (Unknown, Verified 11/11/16 15:12) Iodinated Contrast- Oral and IV Dye [IV Dye, Iodine Containing] Allergy (Verified 11/11/16 15:12) Liraglutide [From Victoza] Allergy (Verified 11/11/16 15:12) Review of Systems Constitutional: PRESENT: anorexia, fatigue, weakness. ABSENT: chills, fever(s), headache(s), night sweats Nose, Mouth, and Throat: ABSENT: mouth pain, sore throat Cardiovascular: ABSENT: chest pain, dyspnea on exertion, edema, orthropnea, palpitations Respiratory: ABSENT: dyspnea, hemoptysis Gastrointestinal: PRESENT: abdominal pain, diarrhea, nausea, vomiting. ABSENT: bloating, coffee ground emesis, constipation, dysphagia, heartburn, hematemesis, hematochezia, melena Genitourinary: ABSENT: difficulty urinating, dysuria, hematuria Musculoskeletal: ABSENT: deformity, joint swelling Integumentary: ABSENT: lesions, pruritus, rash Neurological: ABSENT: abnormal movements, confusion, convulsions, focal weakness, lack of coordination Endocrine: ABSENT: polydipsia Hematologic/Lymphatic: ABSENT: easy bleeding, easy bruising, lymphadenopathy Physical Exam Vital Signs: Temp Pulse Resp BP Pulse Ox 97.6 F 103 H 18 95/59 L 100 10/12/18 11:36 10/12/18 11:36 10/12/18 14:01 10/12/18 14:01 10/12/18 15:31 Intake & Output 10/11/18 10/12/18 10/13/18 06:59 06:59 06:59 Intake Total 1126 Balance 1126 Weight 74.8 kg 71.2 kg General appearance: PRESENT: no acute distress Eye exam: PRESENT: EOMI, PERRLA. ABSENT: scleral icterus Ear exam: PRESENT: normal external ear exam Mouth exam: PRESENT: neck supple. ABSENT: moist Neck exam: ABSENT: lymphadenopathy, meningismus, tenderness, thyromegaly, tracheal deviation Respiratory exam: PRESENT: clear to auscultation juan carlos, symmetrical. ABSENT: crackles Cardiovascular exam: PRESENT: +S1, +S2 GI/Abdominal exam: PRESENT: soft, tenderness - Around the periumbilical area. She has got ileostomy to the right of the umbilicus.. ABSENT: distended, firm, guarding, hernia, mass, organomegaly, rebound Extremities exam: ABSENT: pedal edema Neurological exam: PRESENT: alert, awake, oriented to person, oriented to place Psychiatric exam: PRESENT: appropriate affect Skin exam: ABSENT: cyanosis, erythema, mottled, rash Results Laboratory Results: 10/12/18 05:30 10/12/18 05:30 10/12/18 10/12/18 10/12/18 05:30 05:30 06:48 WBC 34.5 H* RBC 4.82 Hgb 13.8 Hct 44.5 MCV 92 MCH 28.6 MCHC 30.9 L RDW 15.1 H Plt Count 331 Seg Neutrophils % Not Reportable Lymphocytes % Not Reportable Monocytes % Not Reportable Eosinophils % Not Reportable Basophils % Not Reportable Absolute Neutrophils Not Reportable Absolute Lymphocytes Not Reportable Absolute Monocytes Not Reportable Absolute Eosinophils Not Reportable Absolute Basophils Not Reportable Carbonic Acid HCO3/H2CO3 Ratio ABG pH ABG pCO2 ABG pO2 ABG HCO3 ABG O2 Saturation ABG Base Excess VBG pH VBG pCO2 VBG HCO3 VBG Base Excess FiO2 Sodium 134.6 L Potassium 6.2 H* Chloride 99 Carbon Dioxide 8 L* Anion Gap 28 H BUN 59 H Creatinine 8.35 H Est GFR ( Amer) 6 L Est GFR (Non-Af Amer) 5 L Glucose 305 H Lactic Acid 5.0 H Calcium 10.5 H Total Bilirubin 0.7 AST 62 H ALT 72 H Alkaline Phosphatase 156 H Total Protein 7.8 Albumin 4.5 Lipase 980.6 H 10/12/18 10/12/18 10/12/18 06:48 10:49 13:30 WBC RBC Hgb Hct MCV MCH MCHC RDW Plt Count Seg Neutrophils % Lymphocytes % Monocytes % Eosinophils % Basophils % Absolute Neutrophils Absolute Lymphocytes Absolute Monocytes Absolute Eosinophils Absolute Basophils Carbonic Acid 0.95 L HCO3/H2CO3 Ratio 19:1 ABG pH 7.38 ABG pCO2 31.4 L ABG pO2 80.5 ABG HCO3 18.2 L ABG O2 Saturation 95.9 ABG Base Excess -5.9 VBG pH 6.95 L* VBG pCO2 39.2 VBG HCO3 8.4 L VBG Base Excess -23.4 FiO2 ROOM AIR Sodium Potassium Chloride Carbon Dioxide Anion Gap BUN Creatinine Est GFR ( Amer) Est GFR (Non-Af Amer) Glucose Lactic Acid 2.1 Calcium Total Bilirubin AST ALT Alkaline Phosphatase Total Protein Albumin Lipase Impressions: Abdomen/Pelvis CT 10/12/18 06:47 IMPRESSION: 1. Continued abnormalities in the left upper pole and left proximal ureter worrisome for urothelial tumor. If not previously performed recommend urology consultation for left retrograde pyelogram. 2. New left inguinal adenopathy that may be reactive or metastatic. Recommend clinical correlation and appropriate follow-up. 3. Other chronic findings as above. Chest X-Ray 10/12/18 06:47 IMPRESSION: No acute cardiopulmonary abnormality copyright 2011 [employer]- All Rights Reserved Assessment & Plan - Diagnosis (1) Acute kidney injury superimposed on chronic kidney disease Is this a current diagnosis for this admission?: Yes Plan: She had existing CKD stage IV/V probably secondary to diabetic nephropathy with further additional insults recently from a nephrolithiasis. Currently oliguric in association with creatinine of 8+, severe hyperkalemia and metabolic gap acidosis. She is currently being seen on hemodialysis which she is undergoing without any acute distress. However blood pressure is tenuous and I ordered a liter of fluid resuscitation. Dialysis is being supervised to ensure safe and smooth procedure. Plan to remove no fluid. Dialysis orders were reviewed with the treating dialysis nurse Jennifer. Given possibility of sepsis and prerenal volume depletion she would need plenty of fluid resuscitation. She is also on IV antibiotics and IV steroids. Discussed and reviewed orders with the treating dialysis nurse. Plan to dialyze her for 2.5 hours with no fluid removal. Given the severity of situations I believe she looks like she has attained ESRD and I see that she would be needing continuous hemodialysis. Discussed this with patient she is willing to proceed. Therefore called Dr. Mckenna for placement of her IJ PermCath which he gladly accepted to do on Monday. Meanwhile we will get hepatitis labs and PPD placed. (2) Acute pancreatitis Is this a current diagnosis for this admission?: Yes Plan: Unstable at the moment. As per hospitalist. (3) Crohns disease Is this a current diagnosis for this admission?: Yes Plan: Complicated with high output ileostomy. She is on some medication that I did not recognize and I do not see it in her home medications but I think it could be 1 of the newer monoclonal antibodies. However she is been begun on IV steroids for the moment.She needs plenty of fluid resuscitation if she continues with high output ileostomy. (4) High anion gap metabolic acidosis Plan: Discussed with Dr. Elkins in the ER. Was begun on IV bicarbonate infusions. See how she responds to urgent dialysis. (5) Hyperkalemia Plan: Initially measures were instituted in the ER. See the response to dialysis. Advised low potassium diet. (6) Lactic acidosis Plan: She has been begun on IV antibiotics pending cultures. See the response to dialysis along with other measures that have been instituted. (7) Type 2 diabetes mellitus Is this a current diagnosis for this admission?: Yes Plan: Advised tight control. (8) Renal lesion Plan: Left upper pole renal mass along with the proximal ureteral lesion. She needs retrograde pyelogram and urology consultation as an outpatient. - Time Time Spent: 30 to 50 Minutes
--- NOTE | 2018-10-12 16:19 | PDOC H&P ---
History of Present Illness Admission Date/PCP: JALYN MORALES MD History of Present Illness: DARRELL OLIVARES is a 53 year old female with past medical history of Crohn disease, diabetes mellitus, chronic kidney disease and chronic immunosuppression presented with 1 week history of nausea and vomiting. Patient denies any fever, chills, palpitation or diaphoresis. She endorses nausea and vomiting but no diarrhea. No headache dizziness or blurry vision. Her initial work-up reveals potassium 6.2 creatinine of 8.35 and a white cell count of 36,000. Her baseline creatinine is ranging between 2-3. Since patient is chronically on a steroid the leukocytosis might be explained by that but for the ability to start outpatient started on Levaquin and vancomycin. Will trend WBC. Her chest x-ray and CT scan of the abdomen is unremarkable. Her primary grain shipper is Dr. Snider at [facility]. Here to the ER attending consulted Dr. Mcgovern who scheduled her for dialysis today. Femoral dialysis catheter has been placed by Dr. Azar. Past Medical History Cardiac Medical History: Reports: Hyperlipidema, Hypertension Endocrine Medical History: Reports: Diabetes Mellitus Type 2 - no meds GI Medical History: Reports: Crohn's Disease Musculoskeltal Medical History: Reports: Arthritis - RA, ankylosing spondylitis Past Surgical History Past Surgical History: Reports: Section, Cholecystectomy, Her niorrhaphy, Vascular Surgery Social History Smoking Status: Never Smoker Frequency of Alcohol Use: Rare Hx Recreational Drug Use: No Hx Prescription Drug Abuse: No Family History Family History: Reviewed & Not Pertinent, Hypertension Parental Family History Reviewed: Yes Children Family History Reviewed: Yes Sibling(s) Family History Reviewed.: Yes Medication/Allergy Home Medications: Atenolol [Tenormin] 50 mg PO DAILY 08/25/17 Cyanocobalamin (Vitamin B-12) [B-12] 1,000 mcg PO DAILY 08/25/17 Fluoxetine HCl 40 mg PO DAILY 08/25/17 Glipizide [Glipizide Xl] 10 mg PO DAILY 08/25/17 Omeprazole 40 mg PO DAILY 08/25/17 Ondansetron HCl [Zofran 4 mg Tablet] 1 tab PO Q8 PRN 08/25/17 Pravastatin Sodium [Pravachol] 20 mg PO QHS 08/25/17 Prednisone 10 mg PO DAILY 08/25/17 Cyanocobalamin (Vitamin B-12) [Vitamin B-12 Inj 1000 Mcg/1 ml Vial] 1,000 mcg IM .MONTHLY 10/12/18 Allergies/Adverse Reactions: Penicillins Allergy (Unknown, Verified 11/11/16 15:12) tetracycline [Tetracycline] Allergy (Unknown, Verified 11/11/16 15:12) Iodinated Contrast- Oral and IV Dye [IV Dye, Iodine Containing] Allergy (Verified 11/11/16 15:12) Liraglutide [From Victoza] Allergy (Verified 11/11/16 15:12) Review of Systems Constitutional: PRESENT: as per HPI Eyes: PRESENT: as per HPI Nose, Mouth, and Throat: PRESENT: as per HPI Respiratory: PRESENT: as per HPI Genitourinary: PRESENT: as per HPI Neurological: PRESENT: as per HPI Psychiatric: PRESENT: as per HPI Endocrine: PRESENT: as per HPI Physical Exam Vital Signs: Temp Pulse Resp BP Pulse Ox 98.1 F 120 H 24 H 113/71 97 10/12/18 06:54 10/12/18 05:05 10/12/18 08:01 10/12/18 08:01 10/12/18 07:31 Intake & Output 10/11/18 10/12/18 10/13/18 06:59 06:59 06:59 Weight 74.8 kg General appearance: PRESENT: no acute distress Eye exam: PRESENT: conjunctiva pink Mouth exam: PRESENT: dry mucosa Neck exam: ABSENT: carotid bruit, JVD, lymphadenopathy, thyromegaly Respiratory exam: PRESENT: clear to auscultation juan carlos. ABSENT: rales, rhonchi, wheezes Cardiovascular exam: PRESENT: RRR. ABSENT: diastolic murmur, rubs, systolic murmur GI/Abdominal exam: PRESENT: normal bowel sounds, soft. ABSENT: distended, guarding, mass, organolmegaly, rebound, tenderness Neurological exam: PRESENT: alert, awake, oriented to time, oriented to situation Results Laboratory Results: 10/12/18 05:30 10/12/18 05:30 10/12/18 10/12/18 10/12/18 05:30 05:30 06:48 WBC 34.5 H* RBC 4.82 Hgb 13.8 Hct 44.5 MCV 92 MCH 28.6 MCHC 30.9 L RDW 15.1 H Plt Count 331 Seg Neutrophils % Not Reportable Lymphocytes % Not Reportable Monocytes % Not Reportable Eosinophils % Not Reportable Basophils % Not Reportable Absolute Neutrophils Not Reportable Absolute Lymphocytes Not Reportable Absolute Monocytes Not Reportable Absolute Eosinophils Not Reportable Absolute Basophils Not Reportable VBG pH VBG pCO2 VBG HCO3 VBG Base Excess Sodium 134.6 L Potassium 6.2 H* Chloride 99 Carbon Dioxide 8 L* Anion Gap 28 H BUN 59 H Creatinine 8.35 H Est GFR ( Amer) 6 L Est GFR (Non-Af Amer) 5 L Glucose 305 H Lactic Acid 5.0 H Calcium 10.5 H Total Bilirubin 0.7 AST 62 H ALT 72 H Alkaline Phosphatase 156 H Total Protein 7.8 Albumin 4.5 Lipase 980.6 H 10/12/18 06:48 WBC RBC Hgb Hct MCV MCH MCHC RDW Plt Count Seg Neutrophils % Lymphocytes % Monocytes % Eosinophils % Basophils % Absolute Neutrophils Absolute Lymphocytes Absolute Monocytes Absolute Eosinophils Absolute Basophils VBG pH 6.95 L* VBG pCO2 39.2 VBG HCO3 8.4 L VBG Base Excess -23.4 Sodium Potassium Chloride Carbon Dioxide Anion Gap BUN Creatinine Est GFR ( Amer) Est GFR (Non-Af Amer) Glucose Lactic Acid Calcium Total Bilirubin AST ALT Alkaline Phosphatase Total Protein Albumin Lipase Impressions: Abdomen/Pelvis CT 10/12/18 06:47 IMPRESSION: 1. Continued abnormalities in the left upper pole and left proximal ureter worrisome for urothelial tumor. If not previously performed recommend urology consultation for left retrograde pyelogram. 2. New left inguinal adenopathy that may be reactive or metastatic. Recommend clinical correlation and appropriate follow-up. 3. Other chronic findings as above. Chest X-Ray 10/12/18 06:47 IMPRESSION: No acute cardiopulmonary abnormality copyright 2010 [employer]- All Rights Reserved Assessment and Plan - Diagnosis (1) Metabolic acidosis Is this a current diagnosis for this admission?: Yes Plan: Partly explained by her nausea and vomiting and her underlying CKD. Patient given a dose of bicarb. (2) Hyperkalemia Is this a current diagnosis for this admission?: Yes Plan: Patient given Kayexalate and bicarbonate. I will give her dextrose and regular insulin. And check her BMP after 4 hours. (3) Acute kidney injury superimposed on chronic kidney disease Is this a current diagnosis for this admission?: Yes Plan: Patient has chronic CKD and she is in renal transplant waiting list at [place]. Patient scheduled for hemodialysis today by Dr. Mcgovern. We will avoid nephrotoxic agents. (4) Acute pancreatitis Is this a current diagnosis for this admission?: Yes Plan: Etiology is unclear. Her lipase is 980. We will cautiously hydrate the patient and keep her n.p.o. to rest her bowel. (5) Leukocytosis Is this a current diagnosis for this admission?: Yes Plan: Etiology unclear. May be steroid dependent. Patient empirically covered with vancomycin and Levaquin. Since she has allergy to penicillin. (6) Type 2 diabetes mellitus Is this a current diagnosis for this admission?: Yes Plan: Patient has hyperglycemia of 309. We will continue her home medications and put her on sliding scale. (7) Crohns disease Is this a current diagnosis for this admission?: Yes Plan: In remission. Since patient is chronically on immunosuppressant, I will start her on Solu-Cortef to avoid adrenal crisis. - Inpatient Certification Medical Necessity: Need Close Monitoring Due to Risk of Patient Decompensation, Need For IV Fluids, Need For Continuous Telemetry Monitoring, Need for IV Antibiotics
[2018-10-12] MEDS ORDERED: LIDOCAINE 1% INJ-PF (10 MG/ML) 30 ML SDV ONE (16:34)
[2018-10-12 16:43] LABS: ANION GAP 12 (5-19); BLOOD UREA NITROGEN 43 mg/dL (7-20); CALCIUM 7.5 mg/dL (8.4-10.2); CHLORIDE 98 mmol/L (98-107); GLUCOSE 101 mg/dL (75-110); SODIUM 134.8 mmol/L (137-145)
[2018-10-12 16:54] LABS: CARBON DIOXIDE 25 mmol/L (22-30)
[2018-10-12] MEDS: HYDROCORTISONE SOD SUCCINATE INJ/PF 100 MG/2 ML SDV IV SCH ×2 (17:04→23:01)
[2018-10-12] MEDS ORDERED: TUBERCULIN,PURIF.PROT.DERIV. 5 TU/0.1 ML TEST 1 ML VIAL ID ONE (19:00)
--- NOTE | 2018-10-12 22:43 | EKG REPORT ---
SEVERITY:- ABNORMAL ECG - SINUS TACHYCARDIA PROBABLE LEFT ATRIAL ABNORMALITY PROBABLE INFERIOR INFARCT, OLD : Confirmed by: Jeanne Cee MD 12-Oct-2018 22:42:47
[2018-10-13] MEDS: NORMAL SALINE 1000 ML 1,000 ML IV PRN ×2 (00:35→16:09)
[2018-10-13] MEDS: HYDROCORTISONE SOD SUCCINATE INJ/PF 100 MG/2 ML SDV IV SCH ×2 (07:09→18:48)
[2018-10-13] MEDS: HEPARIN SOD (PORCINE) 5,000 UNIT/ML 1 ML SYRINGE SUBCUT SCH ×2 (07:09→14:29)
[2018-10-13] MEDS ORDERED: HYDROCORTISONE SOD SUCCINATE INJ/PF 100 MG/2 ML SDV ONE (07:39)
[2018-10-13] MEDS: INSULIN LISPRO 100 UNIT/ML 3 ML VIAL SUBCUT SCH ×3 (08:00→18:56)
[2018-10-13 08:18] LABS: ABSOLUTE LYMPHOCYTES (AUTO) 2.2 10^3/uL (0.5-4.7); ABSOLUTE MONOCYTES (AUTO) 1.4 10^3/uL (0.1-1.4); ABSOLUTE NEUT (AUTO) 11.7 10^3/uL (1.7-8.2); ALANINE AMINOTRANSFERASE 44 U/L (9-52); ALBUMIN 2.1 g/dL (3.5-5.0); ALKALINE PHOSPHATASE 67 U/L (38-126); ANION GAP 9 (5-19); ASPARTATE AMINO TRANSFERASE 26 U/L (14-36); BASOPHILS % (AUTO) 0.1 % (0-2); BILIRUBIN,DIRECT 0.3 mg/dL (0.0-0.4); BILIRUBIN,TOTAL 0.4 mg/dL (0.2-1.3); BLOOD UREA NITROGEN 28 mg/dL (7-20); CALCIUM 7.6 mg/dL (8.4-10.2); CARBON DIOXIDE 26 mmol/L (22-30); CHLORIDE 104 mmol/L (98-107); EOSINOPHILS % (AUTO) 0.1 % (0-6); GLUCOSE 94 mg/dL (75-110); HEMATOCRIT 23.7 % (36.0-47.0); LIPASE 145.7 U/L (23-300); LYMPHOCYTES % (AUTO) 14.6 % (13-45); MEAN CORPUSCULAR HEMOGLOBIN 28.8 pg (27.0-33.4); MEAN CORPUSCULAR HGB CONC 32.7 g/dL (32.0-36.0); MONOCYTES % (AUTO) 8.9 % (3-13); PLATELET COUNT 135 10^3/uL (150-450); POTASSIUM 3.7 mmol/L (3.6-5.0); RED BLOOD COUNT 2.68 10^6/uL (3.72-5.28); RED CELL DISTRIBUTION WIDTH 14.1 % (11.5-14.0); SEGMENTED NEUTROPHILS % (AUTO) 76.3 % (42-78); SODIUM 138.5 mmol/L (137-145); TOTAL CELLS COUNTED % (AUTO) 100 %; TOTAL PROTEIN 4.1 g/dL (6.3-8.2); WHITE BLOOD COUNT 15.3 10^3/uL (4.0-10.5)
[2018-10-13 08:21] LABS: MEAN CORPUSCULAR VOLUME 88 fl (80-97)
[2018-10-13 08:39] LABS: HEMOGLOBIN 7.7 g/dL (12.0-15.5)
[2018-10-13] MEDS ORDERED: LEVOFLOXACIN 750 MG/D5W RTU 750 MG/150 ML RTUPB IV ONE (10:00)
[2018-10-13] MEDS: FAMOTIDINE 20 MG TABLET PO SCH (11:53)
[2018-10-13 13:26] LABS: ABSOLUTE LYMPHOCYTES (AUTO) 1.3 10^3/uL (0.5-4.7); ABSOLUTE NEUT (AUTO) 12.2 10^3/uL (1.7-8.2); BASOPHILS % (AUTO) 0.1 % (0-2); HEMATOCRIT 24.7 % (36.0-47.0); LYMPHOCYTES % (AUTO) 9.3 % (13-45); MEAN CORPUSCULAR HEMOGLOBIN 28.7 pg (27.0-33.4); MEAN CORPUSCULAR HGB CONC 32.5 g/dL (32.0-36.0); MEAN CORPUSCULAR VOLUME 88 fl (80-97); MONOCYTES % (AUTO) 6.8 % (3-13); PLATELET COUNT 140 10^3/uL (150-450); RED CELL DISTRIBUTION WIDTH 14.1 % (11.5-14.0); SEGMENTED NEUTROPHILS % (AUTO) 83.8 % (42-78); TOTAL CELLS COUNTED % (AUTO) 100 %; WHITE BLOOD COUNT 14.6 10^3/uL (4.0-10.5)
--- NOTE | 2018-10-13 14:29 | OPERATIVE REPORT E ---
Operative Report NAME: DARRELL OLIVARES : 1965 AGE: 53Y DATE OF SURGERY: 10/12/2018 ROOM: 607 PREOPERATIVE DIAGNOSIS: Clotted right femoral vein hemodialysis catheter. POSTOPERATIVE DIAGNOSIS: Clotted right femoral vein hemodialysis catheter. OPERATION: Replacement of clotted hemodialysis catheter with a longer 30 cm dialysis catheter. SURGEON: TESS AMOS M.D. ANESTHESIA: Local. INDICATIONS: This is a 53-year-old female who was noted to have severe renal failure and needed hemodialysis. A right femoral vein hemodialysis catheter was then placed in the ED this morning. The patient underwent hemodialysis in ICU, but the catheter clotted off after 1-1/2 hours. Because of this a new longer hemodialysis was then placed. DESCRIPTION OF PROCEDURE: The patient was placed in the supine position and the right groin area was then prepped and draped in the usual sterile fashion. The suture around the catheter was then removed. A guidewire was then placed through the middle part of the catheter and the catheter subsequently pulled out and the guidewire left in place and pressure applied at the puncture site to prevent bleeding. Next, anesthesia was then infiltrated around the area of the catheter. A 30 cm Trialysis catheter was then placed through the guidewire and inserted all the way towards the area of the inferior vena cava close to the hub of the catheter. The 3 ports of the catheter then aspirated blood easily and instilled saline easily. The catheter was then anchored to the skin with 3-0 nylon. A sterile dressing was placed over the catheter site. The patient tolerated the procedure well. The patient will continue her dialysis treatment. DICTATING PHYSICIAN: TESS AMOS M.D. [id number] PHY#: [id number] ID: [id number] JOB#: [id number] ACCT: [id number] cc:TESS AMOS M.D. >
--- NOTE | 2018-10-13 14:35 | PDOC PROGRESS REPORT ---
Subjective Progress Note for:: 10/13/18 Subjective:: DARRELL OLIVARES is a 53 year old female with past medical history of Crohn disease, diabetes mellitus, chronic kidney disease and chronic immunosuppression presented with 1 week history of nausea and vomiting. Patient denies any fever, chills, palpitation or diaphoresis. She endorses nausea and vomiting but no diarrhea. No headache dizziness or blurry vision. Her initial work-up reveals potassium 6.2 creatinine of 8.35 and a white cell count of 36, 000. Her baseline creatinine is ranging between 2-3. Since patient is chronically on a steroid the leukocytosis might be explained by that but for the ability to start outpatient started on Levaquin and vancomycin. Will trend WBC. Her chest x-ray and CT scan of the abdomen is unremarkable. Her primary field laboratory operator is Dr. Snider at [facility]. Here to the ER attending consulted Dr. Mcgovern who scheduled her for dialysis today. Femoral dialysis catheter has been placed by Dr. Azar. 10/13/2018. No acute events overnight. Status post hemodialysis on 10/12/2018. Nausea vomiting has improved. Denies any fever, chills, nausea, vomiting, diarrhea, or any urinary symptoms. Still having high output ostomy, no sign of bleeding in ileostomy bag. SBP 10142, T-max 99.4, pulse 771 07, RR 1023, SPO2 100% RA. WBC 14.6 down from 34.5 on admission, baseline 1520, hemoglobin 8.0 down from 13.8 on admission, baseline 910, platelets 140 down from 331 admission. Sodium 138.5, potassium 3.7 down from 6.2 on admission, creatinine 3.69 down from 8.35 on admission, baseline 2.4, lipase 147 down from 980 admission. Reason For Visit: METABOLIC ACIDOSIS,HYPERKALEMIA Physical Exam Vital Signs: Temp Pulse Resp BP Pulse Ox 99.4 F 77 18 99/47 L 100 10/13/18 12:00 10/13/18 14:00 10/13/18 14:00 10/13/18 14:00 10/13/18 14:00 Intake & Output 10/12/18 10/13/18 10/14/18 06:59 06:59 06:59 Intake Total 4026 680 Output Total 1125 475 Balance 2901 205 Weight 74.8 kg 71.2 kg General appearance: PRESENT: no acute distress, well-developed, well-nourished Head exam: PRESENT: atraumatic, normocephalic Neck exam: ABSENT: carotid bruit, JVD, lymphadenopathy, thyromegaly Respiratory exam: PRESENT: clear to auscultation juan carlos. ABSENT: rales, rhonchi, wheezes Cardiovascular exam: PRESENT: RRR. ABSENT: diastolic murmur, rubs, systolic murmur GI/Abdominal exam: PRESENT: normal bowel sounds, soft, other - Ileostomy in place. Dark liquid material. No gross blood observed.. ABSENT: distended, guarding, mass, organolmegaly, rebound, tenderness Extremities exam: PRESENT: full ROM. ABSENT: calf tenderness, clubbing, pedal edema Neurological exam: PRESENT: alert, awake, oriented to person, oriented to place, oriented to time, oriented to situation, CN II-XII grossly intact. ABSENT: motor sensory deficit Skin exam: PRESENT: dry, intact, warm. ABSENT: cyanosis, rash Results Laboratory Results: 10/13/18 13:00 10/13/18 07:45 10/12/18 10/13/18 10/13/18 16:18 07:00 07:00 WBC Cancelled RBC Cancelled Hgb Cancelled Hct Cancelled MCV Cancelled MCH Cancelled MCHC Cancelled RDW Cancelled Plt Count Cancelled Seg Neutrophils % Cancelled Lymphocytes % Cancelled Monocytes % Cancelled Eosinophils % Cancelled Basophils % Cancelled Absolute Neutrophils Cancelled Absolute Lymphocytes Cancelled Absolute Monocytes Cancelled Absolute Eosinophils Cancelled Absolute Basophils Cancelled Sodium 134.8 L Cancelled Potassium 4.0 D Cancelled Chloride 98 Cancelled Carbon Dioxide 25 D Cancelled Anion Gap 12 Cancelled BUN 43 H Cancelled Creatinine 4.68 H Cancelled Est GFR ( Amer) 12 L Cancelled Est GFR (Non-Af Amer) 10 L Cancelled Glucose 101 Cancelled Calcium 7.5 L Cancelled Total Bilirubin Cancelled AST Cancelled ALT Cancelled Alkaline Phosphatase Cancelled Total Protein Cancelled Albumin Cancelled Lipase Cancelled 10/13/18 10/13/18 10/13/18 07:45 07:45 13:00 WBC 15.3 H 14.6 H RBC 2.68 L 2.80 L Hgb 7.7 L D 8.0 L Hct 23.7 L 24.7 L MCV 88 D 88 MCH 28.8 28.7 MCHC 32.7 32.5 RDW 14.1 H 14.1 H Plt Count 135 L 140 L Seg Neutrophils % 76.3 83.8 H Lymphocytes % 14.6 9.3 L Monocytes % 8.9 6.8 Eosinophils % 0.1 0.0 Basophils % 0.1 0.1 Absolute Neutrophils 11.7 H 12.2 H Absolute Lymphocytes 2.2 1.3 Absolute Monocytes 1.4 1.0 Absolute Eosinophils 0.0 0.0 Absolute Basophils 0.0 0.0 Sodium 138.5 Potassium 3.7 Chloride 104 Carbon Dioxide 26 Anion Gap 9 BUN 28 H Creatinine 3.69 H Est GFR ( Amer) 15 L Est GFR (Non-Af Amer) 13 L Glucose 94 Calcium 7.6 L Total Bilirubin 0.4 AST 26 ALT 44 Alkaline Phosphatase 67 Total Protein 4.1 L Albumin 2.1 L Lipase 145.7 Impressions: Abdomen/Pelvis CT 10/12/18 06:47 IMPRESSION: 1. Continued abnormalities in the left upper pole and left proximal ureter worrisome for urothelial tumor. If not previously performed recommend urology consultation for left retrograde pyelogram. 2. New left inguinal adenopathy that may be reactive or metastatic. Recommend clinical correlation and appropriate follow-up. 3. Other chronic findings as above. Chest X-Ray 10/12/18 06:47 IMPRESSION: No acute cardiopulmonary abnormality copyright 2010 [employer]- All Rights Reserved Assessment and Plan - Diagnosis (1) Sepsis Qualifiers: Sepsis type: sepsis due to unspecified organism Qualified Code(s): A41.9 - Sepsis, unspecified organism Is this a current diagnosis for this admission?: Yes Plan: Improving. Likely due to gram-positive cocci. Hypotension SBP 66/52 Tachycardia HR 107 Tachypnea RR 24, Hypoxia SPO2 78, Thrombocytopenia platelets 140 down from 331, MELODIE, worsening renal function creatinine 8.35 up from 2. Cultures /10/12/2018 34 gram-positive cocci in clusters. Pending sensitivity. 10/13/2018: SBP 48926, T-max 99.4, pulse 771 07, RR 1023, SPO2 100% RA. Evidenced by: DC levofloxacin. Continue vancomycin. Day 2 IV antibiotics. Repeat blood cultures. (2) Anemia Qualifiers: Iron deficiency anemia type: chronic blood loss Is this a current diagnosis for this admission?: Yes Plan: Normocytic. Baseline Hgb 910. Multifactorial chronic anemia of chronic disease, anemia of iron deficiency caused by chronic GI losses due to underlying Crohn's disease, anemia of CKD. On admission patient had a hemoglobin of 13.8, which may have been hemoconcentrated. Her baseline hemoglobin is about 9-10. Has received 4 L of IV fluids, but does not explain the fact that her hemoglobin has dropped to 7.6, repeat hemoglobin 8.0. There is no obvious source of acute blood loss. Denies any hematemesis, hemoptysis, nosebleeds, vaginal bleeding, hematochezia, melena. Denies any excessive NSAID intake. We could do stool guaiac however is going to be positive because of the fact that patient has chronic blood loss due to her underlying Crohn's disease. We will do H&H this evening, still dropping will call surgery for possible upper GI endoscopy. Iron work-up has been sent. Continue vitamin B12, folic acid, ferrous sulfate. 10/13/2018: WBC 14.6 down from 34.5 on admission, baseline 1520, hemoglobin 8.0 down from 13.8 on admission, baseline 910, platelets 140 down from 331 admission. (3) Acute kidney injury superimposed on chronic kidney disease Is this a current diagnosis for this admission?: Yes Plan: Improving. Prerenal. Nonoliguric. Likely due to sepsis. 10/13/2018: Sodium 138.5, potassium 3.7 down from 6.2 on admission, creatinine 3.69 down from 8.35 on admission, baseline 2.4 History CKD. Has refused dialysis as per nephrology note. On the kidney transplant list at [facility]. Status post hemodialysis on 10/12/2018. Avoid nephrotoxic meds. Monitor volume status and electrolytes. Replace needed. Sees Dr. Snider field laboratory operator as outpatient. (4) Crohns disease Qualifiers: Gastrointestinal tract location: small and large intestine Digestive disease complication type: with intestinal obstruction Qualified Code(s): K50.812 - Crohn's disease of both small and large intestine with intestinal obstruction Is this a current diagnosis for this admission?: Yes Plan: In remission. Status post total colectomy, ileectomy. Ileostomy in place. Currently receiving Biologics on prednisone 20 mg p.o. daily. Started on Solu-Cortef to avoid adrenal crisis. Day two of IV steroids. Switch to p.o. home dosage as appropriate. (5) Hyperkalemia Is this a current diagnosis for this admission?: Yes Plan: Resolved. Likely due to MELODIE. Status post hemodialysis 10/12/2018. 10/13/2018: Sodium 138.5, potassium 3.7 down from 6.2 on admission, creatinine 3.69 down from 8.35 on admission, baseline 2.4, Continue renal diet. (6) Leukocytosis Is this a current diagnosis for this admission?: Yes Plan: Likely exacerbated by gram-positive bacteremia, patient does have chronically elevated WBCs baseline of 50-20,000 likely due to chronic steroid use for her underlying Crohn's disease. WBC 14.6 down from 34.5 on admission, baseline 1520, hemoglobin 8.0 down from 13.8 on admission, baseline 910, platelets 140 Continue IV vancomycin. Folow up blood cultures. (7) Metabolic acidosis Is this a current diagnosis for this admission?: Yes Plan: Resolved. Due to sepsis and acute MELODIE/CKD Status post hemodialysis and bicarb infusion. 10/12/2018 (8) Renal lesion Is this a current diagnosis for this admission?: Yes Plan: Discussed with patient. Advised on outpatient follow-up with urology. Ultimately no urology consult available at [facility]. 10/12/2018. CT abdomen and pelvis. Continued abnormalities in the left upper pole and left proximal ureter worrisome for urothelial tumor. If not previously performed recommend urology consultation for left retrograde pyelogram. (9) Type 2 diabetes mellitus Is this a current diagnosis for this admission?: Yes Plan: 05/25/2018 A1c 7.5% Long-acting insulin, sliding scale insulin, pre-meal insulin, diabetic diet. Adjust dosage as needed. Outpatient PCP follow-up. (10) Hyperlipidemia Is this a current diagnosis for this admission?: Yes Plan: Diet and lifestyle modification. Continue statins. (11) Chronic pancreatitis Qualifiers: Pancreatitis type: drug induced Qualified Code(s): K86.1 - Other chronic pancreatitis; T50.905A - Adverse effect of unspecified drugs, medicaments and biological substances, initial encounter Is this a current diagnosis for this admission?: No Plan: Patient caused by [employer]. P.o. tolerant. Nausea and vomiting has improved. Will start with clear liquid advance diet guided by her symptoms. (12) Depression Is this a current diagnosis for this admission?: No Plan: Denies any self-harm, suicidal or homicidal ideation. Restart SSRIs. Outpatient PCP follow-up.
[2018-10-13] MEDS ORDERED: PREDNISONE 10 MG TABLET PO SCH (14:45)
[2018-10-13 15:16] LABS: ABSOLUTE RETICS # 0.033 10^6/uL (0.028-0.122); RETICULOCYTE COUNT (AUTO) 1.18 % (0.66-2.85)
[2018-10-13 15:27] LABS: IRON(TIBC) 55.4 ug/dL (37-170)
[2018-10-13] MEDS: CYANOCOBALAMIN (VITAMIN B-12) 1,000 MCG TABLET PO SCH (18:48)
[2018-10-13] MEDS: FLUOXETINE HCL 20 MG CAPSULE PO SCH (18:48)
[2018-10-14] MEDS: INSULIN LISPRO 100 UNIT/ML 3 ML VIAL SUBCUT SCH ×5 (00:19→21:09)
[2018-10-14] MEDS: HEPARIN SOD (PORCINE) 5,000 UNIT/ML 1 ML SYRINGE SUBCUT SCH ×4 (00:20→21:02)
[2018-10-14] MEDS: FAMOTIDINE 20 MG TABLET PO SCH ×3 (00:21→21:11)
[2018-10-14] MEDS: ATORVASTATIN CALCIUM 10 MG TABLET PO SCH ×2 (00:21→21:11)
[2018-10-14] MEDS: HYDROCORTISONE SOD SUCCINATE INJ/PF 100 MG/2 ML SDV IV SCH ×4 (00:27→21:14)
[2018-10-14] MEDS: NORMAL SALINE 1000 ML 1,000 ML IV PRN (00:37)
[2018-10-14 07:51] LABS: ABSOLUTE LYMPHOCYTES (AUTO) 1.4 10^3/uL (0.5-4.7); ABSOLUTE MONOCYTES (AUTO) 0.8 10^3/uL (0.1-1.4); ABSOLUTE NEUT (AUTO) 11.3 10^3/uL (1.7-8.2); HEMATOCRIT 23.8 % (36.0-47.0); LYMPHOCYTES % (AUTO) 10.4 % (13-45); MEAN CORPUSCULAR HGB CONC 32.3 g/dL (32.0-36.0); MEAN CORPUSCULAR VOLUME 90 fl (80-97); MONOCYTES % (AUTO) 6.1 % (3-13); PLATELET COUNT 145 10^3/uL (150-450); RED BLOOD COUNT 2.65 10^6/uL (3.72-5.28); RED CELL DISTRIBUTION WIDTH 14.2 % (11.5-14.0); SEGMENTED NEUTROPHILS % (AUTO) 83.5 % (42-78); TOTAL CELLS COUNTED % (AUTO) 100 %; WHITE BLOOD COUNT 13.5 10^3/uL (4.0-10.5)
[2018-10-14 07:53] LABS: HEMOGLOBIN 7.7 g/dL (12.0-15.5)
[2018-10-14 08:10] LABS: ALANINE AMINOTRANSFERASE 40 U/L (9-52); ALBUMIN 2.4 g/dL (3.5-5.0); ALKALINE PHOSPHATASE 62 U/L (38-126); ANION GAP 9 (5-19); ASPARTATE AMINO TRANSFERASE 22 U/L (14-36); BILIRUBIN,DIRECT 0.3 mg/dL (0.0-0.4); BILIRUBIN,TOTAL 0.3 mg/dL (0.2-1.3); BLOOD UREA NITROGEN 31 mg/dL (7-20); CALCIUM 8.3 mg/dL (8.4-10.2); CARBON DIOXIDE 21 mmol/L (22-30); CHLORIDE 108 mmol/L (98-107); GLUCOSE 161 mg/dL (75-110); LIPASE 312.6 U/L (23-300); PHOSPHORUS 6.2 mg/dL (2.5-4.5); POTASSIUM 3.9 mmol/L (3.6-5.0); SODIUM 138.2 mmol/L (137-145); TOTAL PROTEIN 4.6 g/dL (6.3-8.2)
[2018-10-14] MEDS: CYANOCOBALAMIN (VITAMIN B-12) 1,000 MCG TABLET PO SCH (09:47)
[2018-10-14] MEDS: FLUOXETINE HCL 20 MG CAPSULE PO SCH (09:47)
[2018-10-14] MEDS ORDERED: NORMAL SALINE 1000 ML 1,000 ML IV PRN (11:27)
--- NOTE | 2018-10-14 11:46 | PDOC PROGRESS REPORT ---
Subjective Progress Note for:: 10/14/18 Subjective:: Patient is very anxious. She has a special needs child. She received a phone call from her son this has caused her significant anxiety. She wants to have a cigarette. I explained to her that this is not an option. See discussion below. Reason For Visit: METABOLIC ACIDOSIS,HYPERKALEMIA Physical Exam Vital Signs: Temp Pulse Resp BP Pulse Ox 97.7 F 68 14 120/49 L 98 10/14/18 10:00 10/14/18 10:00 10/14/18 10:00 10/14/18 10:00 10/14/18 10:00 Intake & Output 10/13/18 10/14/18 10/15/18 06:59 06:59 06:59 Intake Total 4026 3940 Output Total 1125 1400 500 Balance 2901 2540 -500 Weight 71.2 kg 71.2 kg 79.9 kg General appearance: PRESENT: no acute distress, cooperative, well-developed Head exam: PRESENT: atraumatic, normocephalic Eye exam: PRESENT: conjunctiva pale. ABSENT: scleral icterus Ear exam: PRESENT: normal external ear exam Mouth exam: PRESENT: moist, tongue midline Neck exam: PRESENT: full ROM Respiratory exam: PRESENT: rales - Very faint at bases, symmetrical, unlabored. ABSENT: rhonchi, tachypnea, wheezes Cardiovascular exam: PRESENT: RRR, +S1, +S2 GI/Abdominal exam: PRESENT: normal bowel sounds, soft, other - Ileostomy in place.. ABSENT: guarding Neurological exam: PRESENT: alert, awake, oriented to person, oriented to place, oriented to time, oriented to situation, CN II-XII grossly intact Psychiatric exam: PRESENT: anxious, appropriate affect. ABSENT: agitated Focused psych exam: ABSENT: delusional, restlessness Results Laboratory Results: 10/14/18 07:10 10/14/18 07:10 10/13/18 10/13/18 10/13/18 07:45 13:00 13:00 WBC 14.6 H RBC 2.80 L Hgb 8.0 L Hct 24.7 L MCV 88 MCH 28.7 MCHC 32.5 RDW 14.1 H Plt Count 140 L Seg Neutrophils % 83.8 H Lymphocytes % 9.3 L Monocytes % 6.8 Eosinophils % 0.0 Basophils % 0.1 Absolute Neutrophils 12.2 H Absolute Lymphocytes 1.3 Absolute Monocytes 1.0 Absolute Eosinophils 0.0 Absolute Basophils 0.0 Retic Count (auto) 1.18 Absolute Retic 0.033 Sodium Potassium Chloride Carbon Dioxide Anion Gap BUN Creatinine Est GFR ( Amer) Est GFR (Non-Af Amer) Glucose Calcium Phosphorus Magnesium Iron 55.4 TIBC 229 L % Saturation 24 Ferritin 276.00 H Total Bilirubin AST ALT Alkaline Phosphatase Total Protein Albumin Lipase Vitamin B12 729.0 Folate 16.90 10/14/18 10/14/18 07:10 07:10 WBC 13.5 H RBC 2.65 L Hgb 7.7 L Hct 23.8 L MCV 90 MCH 29.0 MCHC 32.3 RDW 14.2 H Plt Count 145 L Seg Neutrophils % 83.5 H Lymphocytes % 10.4 L Monocytes % 6.1 Eosinophils % 0.0 Basophils % 0.0 Absolute Neutrophils 11.3 H Absolute Lymphocytes 1.4 Absolute Monocytes 0.8 Absolute Eosinophils 0.0 Absolute Basophils 0.0 Retic Count (auto) Absolute Retic Sodium 138.2 Potassium 3.9 Chloride 108 H Carbon Dioxide 21 L Anion Gap 9 BUN 31 H Creatinine 3.81 H Est GFR ( Amer) 15 L Est GFR (Non-Af Amer) 12 L Glucose 161 H Calcium 8.3 L Phosphorus 6.2 H Magnesium 1.7 Iron TIBC % Saturation Ferritin Total Bilirubin 0.3 AST 22 ALT 40 Alkaline Phosphatase 62 Total Protein 4.6 L Albumin 2.4 L Lipase 312.6 H Vitamin B12 Folate Impressions: Abdomen/Pelvis CT 10/12/18 06:47 IMPRESSION: 1. Continued abnormalities in the left upper pole and left proximal ureter worrisome for urothelial tumor. If not previously performed recommend urology consultation for left retrograde pyelogram. 2. New left inguinal adenopathy that may be reactive or metastatic. Recommend clinical correlation and appropriate follow-up. 3. Other chronic findings as above. Chest X-Ray 10/12/18 06:47 IMPRESSION: No acute cardiopulmonary abnormality copyright 2011 [employer]- All Rights Reserved Assessment and Plan - Diagnosis (1) Sepsis Qualifiers: Sepsis type: sepsis due to unspecified organism Qualified Code(s): A41.9 - Sepsis, unspecified organism Is this a current diagnosis for this admission?: Yes Plan: Improving. Likely due to gram-positive cocci. Hypotension SBP 66/52 Tachycardia HR 107 Tachypnea RR 24, Hypoxia SPO2 78, Thrombocytopenia platelets 140 down from 331, MELODIE, worsening renal function creatinine 8.35 up from 2. Cultures 1/2 10/12/2018 34 gram-positive cocci in clusters. Pending sensitivity. 10/13/2018: SBP 94365, T-max 99.4, pulse 771 07, RR 1023, SPO2 100% RA. Evidenced by: DC levofloxacin. Continue vancomycin. Day 2 IV antibiotics. Repeat blood cultures. 10/14/2018-patient is doing much better. No longer requiring vasopressors. Vital signs have been stable. Sepsis resolved. (2) Anemia Qualifiers: Iron deficiency anemia type: chronic blood loss Is this a current diagnosis for this admission?: Yes Plan: Normocytic. Baseline Hgb 910. Multifactorial chronic anemia of chronic disease, anemia of iron deficiency caused by chronic GI losses due to underlying Crohn's disease, anemia of CKD. On admission patient had a hemoglobin of 13.8, which may have been hemoconcentrated. Her baseline hemoglobin is about 9-10. Has received 4 L of IV fluids, but does not explain the fact that her hemoglobin has dropped to 7.6, repeat hemoglobin 8.0. There is no obvious source of acute blood loss. Denies any hematemesis, hemoptysis, nosebleeds, vaginal bleeding, hematochezia, melena. Denies any excessive NSAID intake. We could do stool guaiac however is going to be positive because of the fact that patient has chronic blood loss due to her underlying Crohn's disease. We will do H&H this evening, still dropping will call surgery for possible upper GI endoscopy. Iron work-up has been sent. Continue vitamin B12, folic acid, ferrous sulfate. 10/13/2018: WBC 14.6 down from 34.5 on admission, baseline 1520, hemoglobin 8.0 down from 13.8 on admission, baseline 910, platelets 140 down from 331 admission. 10/14/2018-white blood cell count continues to improve. It is now 13.5. Hemoglobin is back below 8 at 7.7. Between her kidney failure and very short bowel anemia is a chronic issue. If she drops lower consider transfusion. Her chronic inflammatory condition (Crohn's) also contributes to anemia. (3) Acute kidney injury superimposed on chronic kidney disease Is this a current diagnosis for this admission?: Yes Plan: Improving. Prerenal. Nonoliguric. Likely due to sepsis. 10/13/2018: Sodium 138.5, potassium 3.7 down from 6.2 on admission, creatinine 3.69 down from 8.35 on admission, baseline 2.4 History CKD. Has refused dialysis as per nephrology note. On the kidney transplant list at [facility]. Status post hemodialysis on 10/12/2018. Avoid nephrotoxic meds. Monitor volume status and electrolytes. Replace needed. Sees Dr. Snider hvac engineer as outpatient. 10/14/2018-the patient had dialysis on Monday. It is likely she will have dialysis again on Monday. Serum creatinine is down to 3.81 from an initial creatinine greater than 8. No urine output yet. Continue to monitor. (4) Crohns disease Qualifiers: Gastrointestinal tract location: small and large intestine Digestive disease complication type: with intestinal obstruction Qualified Code(s): K50.812 - Crohn's disease of both small and large intestine with intestinal obstruction Is this a current diagnosis for this admission?: Yes Plan: In remission. Status post total colectomy, ileectomy. Ileostomy in place. Currently receiving Biologics on prednisone 20 mg p.o. daily. Started on Solu-Cortef to avoid adrenal crisis. Day two of IV steroids. Switch to p.o. home dosage as appropriate. 10/14/2018-ileostomy functioning. On Solu-Cortef. Consider weaning as sepsis is resolved. Continue other immune modulators. (5) Hyperkalemia Is this a current diagnosis for this admission?: Yes Plan: Resolved. Likely due to MELODIE. Status post hemodialysis 10/12/2018. 10/13/2018: Sodium 138.5, potassium 3.7 down from 6.2 on admission, creatinine 3.69 down from 8.35 on admission, baseline 2.4, Continue renal diet. 10/14/2018-potassium has been stable. It is 3.9 today. Continue to monitor. (6) Leukocytosis Is this a current diagnosis for this admission?: Yes Plan: Likely exacerbated by gram-positive bacteremia, patient does have chronically elevated WBCs baseline of 50-20,000 likely due to chronic steroid use for her underlying Crohn's disease. WBC 14.6 down from 34.5 on admission, baseline 1520, hemoglobin 8.0 down from 13.8 on admission, baseline 910, platelets 140 Continue IV vancomycin. Folow up blood cultures. 10/14/2018-as noted above the white blood cell count is significantly improved from admission. Is down to 13.5. This is likely due to a combination of acute sepsis but the patient also reports chronic low-grade leukocytosis from her chronic inflammatory disease. Continue to monitor. (7) Metabolic acidosis Is this a current diagnosis for this admission?: Yes Plan: Resolved. Due to sepsis and acute MELODIE/CKD Status post hemodialysis and bicarb infusion. 10/12/2018 10/14/2018-resolved (8) Acute pancreatitis Is this a current diagnosis for this admission?: Yes Plan: Etiology is unclear. Her lipase is 980. We will cautiously hydrate the patient and keep her n.p.o. to rest her bowel. 10/14/2018-lipase had improved from 980 down to 145. She is back up to 312. We will continue to monitor. Will investigate if any of her medications can contribute. (9) Lesion of left [place] kidney Is this a current diagnosis for this admission?: Yes Plan: New lesion upper pole of left kidney. This has not been worked up yet. She did have questions as to why she would need to see urologist if it is a kidney lesion and she is seeing a hvac engineer. I explained the difference with regard to surgical intervention. The patient understands. She will follow-up with urology as an outpatient. I also explained that interventional radiologist will often do percutaneous biopsies. - Time Time Spent with patient: 35 or more minutes Medications reviewed and adjusted accordingly: Yes Anticipated discharge: Home - Inpatient Certification Based on my medical assessment, after consideration of the patient's comor bidities, presenting symptoms, or acuity I expect that the services needed warrant INPATIENT care.: Yes I certify that my determination is in accordance with my understanding of Medicare's requirements for reasonable and necessary INPATIENT services [42 CFR 412.3e].: Yes Medical Necessity: Need Close Monitoring Due to Risk of Patient Decompensation, Need For Continuous Telemetry Monitoring, Need for IV Antibiotics, Other - Hemodialysis
[2018-10-14] MEDS ORDERED: VANCOMYCIN HCL 750 MG in DEXTROSE 5%-WATER 250 ML IV SCH (12:00)
[2018-10-14] MEDS: ALPRAZOLAM 0.25 MG TABLET PO PRN (21:11)
[2018-10-15] MEDS: HEPARIN SOD (PORCINE) 5,000 UNIT/ML 1 ML SYRINGE SUBCUT SCH ×3 (05:58→21:51)
[2018-10-15] MEDS: HYDROCORTISONE SOD SUCCINATE INJ/PF 100 MG/2 ML SDV IV SCH ×3 (05:59→22:04)
[2018-10-15 07:29] LABS: ABSOLUTE LYMPHOCYTES (AUTO) 1.6 10^3/uL (0.5-4.7); ABSOLUTE MONOCYTES (AUTO) 0.9 10^3/uL (0.1-1.4); ABSOLUTE NEUT (AUTO) 10.1 10^3/uL (1.7-8.2); BASOPHILS % (AUTO) 0.2 % (0-2); HEMATOCRIT 22.2 % (36.0-47.0); LYMPHOCYTES % (AUTO) 12.6 % (13-45); MEAN CORPUSCULAR HEMOGLOBIN 29.1 pg (27.0-33.4); MEAN CORPUSCULAR HGB CONC 32.2 g/dL (32.0-36.0); MEAN CORPUSCULAR VOLUME 90 fl (80-97); MONOCYTES % (AUTO) 6.8 % (3-13); PLATELET COUNT 136 10^3/uL (150-450); RED BLOOD COUNT 2.46 10^6/uL (3.72-5.28); SEGMENTED NEUTROPHILS % (AUTO) 80.4 % (42-78); TOTAL CELLS COUNTED % (AUTO) 100 %; WHITE BLOOD COUNT 12.6 10^3/uL (4.0-10.5)
[2018-10-15 07:34] LABS: HEMOGLOBIN 7.2 g/dL (12.0-15.5)
[2018-10-15 07:44] LABS: ALANINE AMINOTRANSFERASE 34 U/L (9-52); ALBUMIN 2.3 g/dL (3.5-5.0); ALKALINE PHOSPHATASE 57 U/L (38-126); ANION GAP 10 (5-19); ASPARTATE AMINO TRANSFERASE 18 U/L (14-36); BILIRUBIN,DIRECT 0.2 mg/dL (0.0-0.4); BILIRUBIN,TOTAL 0.2 mg/dL (0.2-1.3); BLOOD UREA NITROGEN 33 mg/dL (7-20); CALCIUM 8.4 mg/dL (8.4-10.2); CARBON DIOXIDE 22 mmol/L (22-30); CHLORIDE 107 mmol/L (98-107); GLUCOSE 162 mg/dL (75-110); LIPASE 375.5 U/L (23-300); POTASSIUM 3.6 mmol/L (3.6-5.0); SODIUM 139.1 mmol/L (137-145); TOTAL PROTEIN 4.3 g/dL (6.3-8.2)
[2018-10-15] MEDS: INSULIN LISPRO 100 UNIT/ML 3 ML VIAL SUBCUT SCH ×4 (08:19→21:51)
--- NOTE | 2018-10-15 09:31 | PDOC PROGRESS REPORT ---
Subjective Progress Note for:: 10/15/18 Subjective:: Dialysis access Reason For Visit: METABOLIC ACIDOSIS,HYPERKALEMIA Physical Exam Vital Signs: Temp Pulse Resp BP Pulse Ox 97.5 F 67 16 111/60 97 10/15/18 03:55 10/15/18 03:55 10/15/18 03:55 10/15/18 03:55 10/15/18 03:55 Intake & Output 10/14/18 10/15/18 10/16/18 06:59 06:59 06:59 Intake Total 3940 Output Total 1400 500 Balance 2540 -500 Weight 71.2 kg 80.3 kg Additional comments: Constitutional: Well-developed well-nourished lady, increased body mass index. No apparent acute distress. Eyes: Mucous membranes pink and moist, pupils equal and reactive to light. Conjunctiva normal. Cornea normal. Respiratory: Normal respiratory effort. Skin: Thin, prominent subcutaneous reticular veins on the face. No ulcers, normal turgor. Recent discharge from left axillary skin infection. Chest: Left-sided Port-A-Cath possibly subclavian noted. Psychiatric: Judgment, memory, insight seem normal. Mood is pleasant and appropriate. Extremities: Upper extremities show normal range of movement. Pulses present noted to the radial arteries. Capillary refill normal. No cyanosis noted. No muscle wasting noted. Lower extremities show normal range of movement. Right-sided femoral temporary hemodialysis catheter noted. Results Laboratory Results: 10/15/18 06:00 10/15/18 06:00 10/15/18 10/15/18 06:00 06:00 WBC 12.6 H RBC 2.46 L Hgb 7.2 L Hct 22.2 L MCV 90 MCH 29.1 MCHC 32.2 RDW 14.0 Plt Count 136 L Seg Neutrophils % 80.4 H Lymphocytes % 12.6 L Monocytes % 6.8 Eosinophils % 0.0 Basophils % 0.2 Absolute Neutrophils 10.1 H Absolute Lymphocytes 1.6 Absolute Monocytes 0.9 Absolute Eosinophils 0.0 Absolute Basophils 0.0 Sodium 139.1 Potassium 3.6 Chloride 107 Carbon Dioxide 22 Anion Gap 10 BUN 33 H Creatinine 3.91 H Est GFR ( Amer) 14 L Est GFR (Non-Af Amer) 12 L Glucose 162 H Calcium 8.4 Total Bilirubin 0.2 AST 18 ALT 34 Alkaline Phosphatase 57 Total Protein 4.3 L Albumin 2.3 L Lipase 375.5 H Impressions: Abdomen/Pelvis CT 10/12/18 06:47 IMPRESSION: 1. Continued abnormalities in the left upper pole and left proximal ureter worrisome for urothelial tumor. If not previously performed recommend urology consultation for left retrograde pyelogram. 2. New left inguinal adenopathy that may be reactive or metastatic. Recommend clinical correlation and appropriate follow-up. 3. Other chronic findings as above. Chest X-Ray 10/12/18 06:47 IMPRESSION: No acute cardiopulmonary abnormality copyright 2011 [employer]- All Rights Reserved Assessment & Plan - Diagnosis (1) Acute kidney injury superimposed on chronic kidney disease Is this a current diagnosis for this admission?: Yes (2) High anion gap metabolic acidosis Is this a current diagnosis for this admission?: Yes (3) Lesion of left [place] kidney Is this a current diagnosis for this admission?: Yes (4) Type 2 diabetes mellitus Is this a current diagnosis for this admission?: Yes (5) Crohn disease Is this a current diagnosis for this admission?: Yes (6) History of creation of ostomy Is this a current diagnosis for this admission?: Yes (7) Port catheter in place Is this a current diagnosis for this admission?: Yes (8) Sepsis Qualifiers: Sepsis type: sepsis due to unspecified organism Qualified Code(s): A41.9 - Sepsis, unspecified organism Is this a current diagnosis for this admission?: Yes (9) Short bowel syndrome Is this a current diagnosis for this admission?: Yes - Plan Summary Plan Summary: In this extremely complex, wonderful lady, here for continued consideration towards a PermCath insertion. Numerous troubling considerations including the apparent existence of a skin infection of the left axilla, presence of a left apparently subclavian Port-A-Cath. Think an ostomy, comorbidities impacting from Crohn's disease long-term, medications, diabetes mellitus type 2 and now end-stage renal disease. The patient is dialyzed through a right femoral temporary hemodialysis catheter which is malfunctioning. At this time the best option may be to place a permacatheter with some trip trepidation, increased risk of infection given the adjacent sources. I believe the patient should be covered with IV antibiotic on dialysis for a week or 2. The risks would include infection, bleeding, heart, lung complications, injury to other structures. The patient is upbeat and agreeable and we will try to proceed today.
[2018-10-15] MEDS ORDERED: NORMAL SALINE 1000 ML 1,000 ML IV PRN (09:36)
[2018-10-15] MEDS ORDERED: EPOETIN ALFA INJ 20000 UNIT/1 ML VIAL (RENAL) IV PRN (09:36)
--- NOTE | 2018-10-15 10:09 | PDOC PROGRESS REPORT ---
Subjective Progress Note for:: 10/15/18 Subjective:: I have seen the patient during dialysis treatment this morning. We are having trouble with her trialysis catheter and the blood flow was only about 200 mL/min. We will continue to try to run the patient but the catheter clotted after 45 minutes on dialysis. She is scheduled for PermCath placement after dialysis this morning. Dr. Cira Mckenna actually have seen the patient will on the machine as well. Patient otherwise tolerated to 45 minutes dialysis this morning. Patient is well aware that she is now going to have chronic dialysis treatment and she wanted to go to [facility] because it very close to her house. Patient has underlying chronic kidney disease stage IV with baseline creatinine of 4 and is being prepared for chronic dialysis treatment by Dr. Snider, 1 of our partners in [place]. Patient declined kidney transplant evaluation at [place] since she cannot be away from home more than a day because of her special needs son. Her initial creatinine on admission was 8 associated with hyperkalemia and metabolic acidosis prompting initiation of renal replacement therapy last Monday. Patient's creatinine today is still 3.95 with EGFR of 12 so still at stage V of chronic kidney disease. I agree the patient is now at end-stage renal disease and would probably be better off with continuation of dialysis as an outpatient moving forward. Dialysis will also help maintain her acid-base balance while she is having high output ileostomy drainage continuously. Patient is agreeable to that. Patient relates that she had an episode of kidney stone 2 weeks ago and is currently has acute pancreatitis. Currently she says she still feels crappy, she is hungry and thirsty. He started eating last night. She denies any nausea or vomiting this morning. She still makes some urine but has decreased. Reason For Visit: METABOLIC ACIDOSIS,HYPERKALEMIA Physical Exam Vital Signs: Temp Pulse Resp BP Pulse Ox 97.5 F 67 16 111/60 97 10/15/18 03:55 10/15/18 03:55 10/15/18 03:55 10/15/18 03:55 10/15/18 03:55 Intake & Output 10/14/18 10/15/18 10/16/18 06:59 06:59 06:59 Intake Total 3940 Output Total 1400 500 Balance 2540 -500 Weight 71.2 kg 80.3 kg Vitals during dialysis: Blood pressure 126/69, heart rate of 63, blood flow rate of 200 mL/min and dialysis flow rate of 500 mL/min. Exam: General appearance: PRESENT: no acute distress, cooperative, well-developed, well-nourished Head exam: PRESENT: atraumatic, normocephalic Eye exam: PRESENT: conjunctiva pale, PERRLA. ABSENT: scleral icterus Neck exam: ABSENT: JVD Respiratory exam: PRESENT: Diminished breath sounds. ABSENT: crackles, rales, rhonchi, unlabored, wheezes Cardiovascular exam: PRESENT: Regular rate rhythm -+S1, +S2. ABSENT: diastolic murmur, systolic murmur GI/Abdominal exam: PRESENT: normal bowel sounds, soft. Ileostomy bag on her right lower quadrant in place ABSENT: guarding, mass, tenderness Extremities exam: ABSENT: No edema Neurological exam: PRESENT: alert, awake, oriented to person, place and time. Skin exam: PRESENT: dry, warm, Cardiovascular exam: PRESENT: +S1, +S2 GI/Abdominal exam: PRESENT: soft, tenderness - Around the periumbilical area. She has got ileostomy to the right of the umbilicus.. ABSENT: distended, firm, guarding, hernia, mass, organomegaly, rebound Results Laboratory Results: 10/15/18 06:00 10/15/18 06:00 10/15/18 10/15/18 06:00 06:00 WBC 12.6 H RBC 2.46 L Hgb 7.2 L Hct 22.2 L MCV 90 MCH 29.1 MCHC 32.2 RDW 14.0 Plt Count 136 L Seg Neutrophils % 80.4 H Lymphocytes % 12.6 L Monocytes % 6.8 Eosinophils % 0.0 Basophils % 0.2 Absolute Neutrophils 10.1 H Absolute Lymphocytes 1.6 Absolute Monocytes 0.9 Absolute Eosinophils 0.0 Absolute Basophils 0.0 Sodium 139.1 Potassium 3.6 Chloride 107 Carbon Dioxide 22 Anion Gap 10 BUN 33 H Creatinine 3.91 H Est GFR ( Amer) 14 L Est GFR (Non-Af Amer) 12 L Glucose 162 H Calcium 8.4 Total Bilirubin 0.2 AST 18 ALT 34 Alkaline Phosphatase 57 Total Protein 4.3 L Albumin 2.3 L Lipase 375.5 H Impressions: Abdomen/Pelvis CT 10/12/18 06:47 IMPRESSION: 1. Continued abnormalities in the left upper pole and left proximal ureter worrisome for urothelial tumor. If not previously performed recommend urology consultation for left retrograde pyelogram. 2. New left inguinal adenopathy that may be reactive or metastatic. Recommend clinical correlation and appropriate follow-up. 3. Other chronic findings as above. Chest X-Ray 10/12/18 06:47 IMPRESSION: No acute cardiopulmonary abnormality copyright 2010 [employer]- All Rights Reserved Assessment & Plan - Diagnosis (1) End stage renal disease on dialysis Is this a current diagnosis for this admission?: Yes Plan: Likely secondary to diabetic nephropathy in a patient also with history of nephrolithiasis. Patient has not gotten to the point that she would need chronic dialysis treatment and she is agreeable to continue with it. We will arrange chronic dialysis as an outpatient at [facility]. PermCath will be placed today by Dr. Mckenna. We plan to do dialysis today for 2.5 but she only did 45 minutes due to clotting of the trialysis catheter, using the patient's trialysis catheter, with 3 potassium bath, blood flow rate of 200 mL per minute, dialysate flow rate of 500 mL per minute, ultrafiltration none, no heparin and Procrit with 20,000 units during dialysis intravenously or can be given subcutaneously if unable to be given during dialysis. We will continue hemodialysis support while still here in the hospital. (2) Acute kidney injury superimposed on chronic kidney disease Is this a current diagnosis for this admission?: Yes Plan: Patient initially presented with most likely severe dehydration due to her high output ileostomy. Currently the patient is at baseline kidney function which is actually still stage V. As stated above patient will be arranged for chronic dialysis treatment. (3) Acute pancreatitis Is this a current diagnosis for this admission?: Yes (4) Anemia Qualifiers: Iron deficiency anemia type: chronic blood loss Is this a current diagnosis for this admission?: Yes Plan: There is no evidence of active bleeding. We will start Procrit and give 20,000 units IV or subcutaneously today. May need to do blood transfusion if her hemoglobin goes down below 7.5. This could be a multifactorial anemia due to chronic kidney disease and Crohn's disease. (5) Crohns disease Qualifiers: Gastrointestinal tract location: small and large intestine Digestive disease complication type: with intestinal obstruction Qualified Code(s): K50.812 - Crohn's disease of both small and large intestine with intestinal obstruction Is this a current diagnosis for this admission?: Yes (6) Hyperkalemia Is this a current diagnosis for this admission?: Yes Plan: Resolved after initiation of dialysis treatment. (7) Lesion of left [place] kidney Is this a current diagnosis for this admission?: Yes Plan: Patient would need an outpatient urology consult and follow-up for further management and work-up of this lesion. (8) Metabolic acidosis Is this a current diagnosis for this admission?: Yes Plan: Resolved with dialysis treatment. (9) Type 2 diabetes mellitus Is this a current diagnosis for this admission?: Yes (10) Sepsis Qualifiers: Sepsis type: sepsis due to unspecified organism Qualified Code(s): A41.9 - Sepsis, unspecified organism Is this a current diagnosis for this admission?: Yes Plan: Due to gram-positive cocci in clusters. Currently on IV vancomycin. (11) Hyperphosphatemia Is this a current diagnosis for this admission?: Yes Plan: We will start calcium acetate 667 mg 2 capsules with meals. We will start also patient with Nephrocaps multivitamins daily. 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
[2018-10-15] MEDS ORDERED: EPOETIN ALFA INJ 20000 UNIT/1 ML VIAL (RENAL) SUBCUT ONE (10:45)
[2018-10-15] MEDS ORDERED: ACETAMINOPHEN 325 MG TABLET PO PRN (10:59)
[2018-10-15] MEDS ORDERED: ONDANSETRON HCL INJ/PF 4 MG/2 ML SDV IV PRN (11:30)
--- NOTE | 2018-10-15 11:38 | PDOC PROGRESS REPORT ---
Subjective Progress Note for:: 10/15/18 Subjective:: This is a 53 year old female with past medical history of Crohn disease with prior colectomy, ostomy with revisions, diabetes mellitus, chronic kidney disease and chronic immunosuppression presented with 1 week history of nausea and vomiting. Her initial work-up reveals potassium 6.2 creatinine of 8.35 and a white cell count of 36,000. She has chronic high output from her ileostomy. She was admitted for acute on chronic renal failure. She required initiation of hemodialysis on 10/12/18. She was also treated for possible sepsis. Her blood culture is growing GPC 06/06. This morning, she went for dialysis but unfortunately had clotting of her trial ysis cath 45 minutes into the session. She denies chest pain or SOB. Reason For Visit: METABOLIC ACIDOSIS,HYPERKALEMIA Physical Exam Vital Signs: Temp Pulse Resp BP Pulse Ox 97.5 F 61 16 111/60 97 10/15/18 03:55 10/15/18 10:00 10/15/18 03:55 10/15/18 03:55 10/15/18 03:55 Intake & Output 10/14/18 10/15/18 10/16/18 06:59 06:59 06:59 Intake Total 3940 Output Total 1400 500 Balance 2540 -500 Weight 156 lb 15.506 oz 177 lb 0.499 oz General appearance: PRESENT: no acute distress, well-developed, well-nourished Head exam: PRESENT: atraumatic, normocephalic Eye exam: PRESENT: conjunctiva pink, EOMI, PERRLA. ABSENT: scleral icterus Ear exam: PRESENT: normal external ear exam Mouth exam: PRESENT: moist, tongue midline Neck exam: ABSENT: carotid bruit, JVD, lymphadenopathy, thyromegaly Respiratory exam: PRESENT: clear to auscultation juan carlos. ABSENT: rales, rhonchi, wheezes Cardiovascular exam: PRESENT: RRR. ABSENT: diastolic murmur, rubs, systolic murmur Pulses: PRESENT: normal dorsalis pedis pul GI/Abdominal exam: PRESENT: normal bowel sounds, soft, other - noted ileostomy. ABSENT: distended, guarding, mass, organolmegaly, rebound, tenderness Rectal exam: PRESENT: deferred Extremities exam: PRESENT: full ROM. ABSENT: calf tenderness, clubbing, pedal edema Neurological exam: PRESENT: alert, awake, oriented to person, oriented to place, oriented to time, oriented to situation, CN II-XII grossly intact. ABSENT: motor sensory deficit Results Laboratory Results: 10/15/18 06:00 10/15/18 06:00 10/15/18 10/15/18 06:00 06:00 WBC 12.6 H RBC 2.46 L Hgb 7.2 L Hct 22.2 L MCV 90 MCH 29.1 MCHC 32.2 RDW 14.0 Plt Count 136 L Seg Neutrophils % 80.4 H Lymphocytes % 12.6 L Monocytes % 6.8 Eosinophils % 0.0 Basophils % 0.2 Absolute Neutrophils 10.1 H Absolute Lymphocytes 1.6 Absolute Monocytes 0.9 Absolute Eosinophils 0.0 Absolute Basophils 0.0 Sodium 139.1 Potassium 3.6 Chloride 107 Carbon Dioxide 22 Anion Gap 10 BUN 33 H Creatinine 3.91 H Est GFR ( Amer) 14 L Est GFR (Non-Af Amer) 12 L Glucose 162 H Calcium 8.4 Total Bilirubin 0.2 AST 18 ALT 34 Alkaline Phosphatase 57 Total Protein 4.3 L Albumin 2.3 L Lipase 375.5 H Impressions: Abdomen/Pelvis CT 10/12/18 06:47 IMPRESSION: 1. Continued abnormalities in the left upper pole and left proximal ureter worrisome for urothelial tumor. If not previously performed recommend urology consultation for left retrograde pyelogram. 2. New left inguinal adenopathy that may be reactive or metastatic. Recommend clinical correlation and appropriate follow-up. 3. Other chronic findings as above. Chest X-Ray 10/12/18 06:47 IMPRESSION: No acute cardiopulmonary abnormality copyright 2011 [employer]- All Rights Reserved Assessment and Plan - Diagnosis (1) Acute on chronic renal failure Is this a current diagnosis for this admission?: Yes Plan: She has chronic high output from her ileostomy. She was admitted for acute on chronic renal failure. She required initiation of hemodialysis on 10/12/18. This morning, she went for dialysis but unfortunately had clotting of her trialysis cath 45 minutes into the session. She will be getting a perm cath later today by Dr. Mckenna. (2) Renal mass Is this a current diagnosis for this admission?: Yes Plan: She has newly diagnosed possible mass concerning for a urothelial tumor. She will need close ff-up and a referral for outpatient urology for this. (3) Gram-positive bacteremia Is this a current diagnosis for this admission?: Yes Plan: On vancomycin. Await final culture result. (4) Acute pancreatitis Is this a current diagnosis for this admission?: Yes Plan: Improved. Denies abdominal pain today. (5) Type 2 diabetes mellitus Is this a current diagnosis for this admission?: Yes Plan: HbA1c 7.5%. Continue insulin regimen. (6) Crohn disease Is this a current diagnosis for this admission?: Yes Plan: She has chronic high output from her ileostomy. She says she closely follows up with her GI. - Time Time Spent with patient: 25-34 minutes
[2018-10-15] MEDS ORDERED: LIDOCAINE 0.5% INJ-PF (5 MG/ML) 50 ML SDV ONE (12:44)
[2018-10-15] MEDS ORDERED: BACITRACIN INJ 50,000 UNIT VIAL ONE (12:44)
[2018-10-15] MEDS ORDERED: MIDAZOLAM 2 MG/2 ML INJ ONE (12:47)
[2018-10-15] MEDS ORDERED: FENTANYL CITRATE INJ/PF 100 MCG/2 ML AMPUL ONE (12:47)
[2018-10-15] MEDS ORDERED: VANCOMYCIN HCL 500 MG in DEXTROSE 5%-WATER 100 ML IV ONE (13:00)
[2018-10-15] MEDS: CALCIUM ACETATE 667 MG CAPSULE PO SCH ×2 (13:03→18:06)
[2018-10-15 13:37] LABS: HEPATITS B SURFACE ANTIGEN Negative (Negative)
--- NOTE | 2018-10-15 13:52 | Operative Report ---
Operative Report DATE OF SURGERY: 10/15/18 PREOPERATIVE DIAGNOSIS: 1. End-stage renal disease on chronic kidney disease r equiring hemodialysis. 2. Crohn's disease. 3. Sepsis. 4. Diabetes mellitus type 2. 5. Multiple comorbidities. POSTOPERATIVE DIAGNOSIS: 1. End-stage renal disease on chronic kidney disease requiring hemodialysis. 2. Crohn's disease. 3. Sepsis. 4. Diabetes mellitus type 2. 5. Multiple comorbidities. OPERATION: #1 ultrasound evaluation of jugular vein. 2. PermCath insertion via real-time access in the right internal jugular vein. SURGEON: SHERINE VILLA HORTICULTURE TEACHER: SHERINE Alaniz . ANESTHESIA: Moderate Sedation TISSUE REMOVED OR ALTERED: Not applicable. COMPLICATIONS: None. ESTIMATED BLOOD LOSS: 5 mL. INTRAOPERATIVE FINDINGS: Of a satisfactory right internal jugular vein for use, estimated to be 1.2 mm in diameter. Also noted is a Port-A-Cath with the tip in the left innominate. Satisfactory position the tip of the permacatheter in the right atrial pool. He is egress of blood and ingress of heparinized solution through both ports. PROCEDURE: After obtaining informed consent, the patient was taken to the [Boilers Inspector] and positioned supine. The [right neck] and chest were prepared with chlorhexidine and draped out with sterile linen. After the " universal timeout", in which it was verified that the patient continued to receive antibiotic, the procedure commenced. A steriley sheathed ultrasound probe was used to evaluate the [right internal jugular] vein. Local anesthesia was infiltrated adjacent to the probe. Access into the [right internal jugular] vein was obtained using a micropuncture needle, followed by micropuncture wire and then a micropuncture catheter. This was followed by introduction of a 0.035 guidewire the tip of which was placed down into the inferior vena cava . A 23 cm long permacatheter was now positioned over the chest and an exit site marked and locally anesthetized ,the catheter was placed between the 2 incisions. Proximally, the catheter was now positioned using a peel-away sheath, after dilation. Easy ingress of heparinized solution and egress of blood obtained through both ports. A completion angiogram was done by injecting contrast. The findings were as dictated. The neck incision was now closed using interrupted 3-0 PDS to the subcutaneous tissues, the catheter was anchored at the exit site using 3-0 PDS. A Biopatch device was now placed adjacent to the catheter. Dressings were applied and the procedure concluded. Exposure time: [0.3 minutes]. Exposure: [1.36 Cassy da silva] Copies of the dictated operative report for Dr. Sherine Mckenna MD.concluded. Copies of the dictated operative report for Dr. Sherine Mckenna MD.
--- NOTE | 2018-10-15 13:59 | RADIOLOGY REPORT (SQ) ---
EXAM DESCRIPTION: TUNNELED CENTRAL LINE COMPLETED DATE/TIME: 10/15/2018 1:33 pm REASON FOR STUDY: NEED FOR VASCULAR ACCESS COMPARISON: None. FLUOROSCOPY TIME: 0.3 minutes. 28 images saved to PACS. TECHNIQUE: Intra-operative images acquired during surgical procedure to evaluate progress. NUMBER OF IMAGES: 28 images. LIMITATIONS: None. FINDINGS: Images of the chest acquired during catheter placement. IMPRESSION: IMAGE(S) OBTAINED DURING PROCEDURE. COMMENT: Quality ID [id number]: Final reports for procedures using fluoroscopy that document radiation exp osure indices, or exposure time and number of fluorographic images (if radiation exposure indices are not available) Please consult full operative report of the attending physician for description of the procedure. TECHNICAL DOCUMENTATION: JOB ID: [id number] [employer] All Rights Reserved Reading location - IP/workstation name: [email or web address]
[2018-10-15] MEDS: FAMOTIDINE 20 MG TABLET PO SCH ×2 (14:08→22:03)
[2018-10-15] MEDS: FLUOXETINE HCL 20 MG CAPSULE PO SCH (14:29)
[2018-10-15] MEDS: CYANOCOBALAMIN (VITAMIN B-12) 1,000 MCG TABLET PO SCH (14:29)
[2018-10-15 14:54] LABS: HEPATITIS B CORE AB TOT Negative (Negative); HEPATITIS B SURFACE AB QUANT 52.5 mIU/mL (Immunity>9)
[2018-10-15] MEDS ORDERED: MORPHINE SULFATE 10 MG/ML INJ IV ONE (16:30)
[2018-10-15] MEDS ORDERED: LEVOFLOXACIN 500 MG/D5W RTU 500 MG/100 ML RTUPB IV SCH (18:00)
[2018-10-15] MEDS ORDERED: VANCOMYCIN HCL 750 MG in DEXTROSE 5%-WATER 250 ML IV SCH (18:00)
[2018-10-15] MEDS: FOLIC ACID/VITAMIN B COMP W-C CAPSULE PO SCH (18:06)
[2018-10-15] MEDS ORDERED: MORPHINE SULFATE 10 MG/ML INJ ONE (21:59)
[2018-10-15] MEDS: ATORVASTATIN CALCIUM 10 MG TABLET PO SCH (22:03)
[2018-10-16] MEDS: HEPARIN SOD (PORCINE) 5,000 UNIT/ML 1 ML SYRINGE SUBCUT SCH ×3 (05:02→21:07)
[2018-10-16] MEDS: HYDROCORTISONE SOD SUCCINATE INJ/PF 100 MG/2 ML SDV IV SCH ×3 (05:17→22:31)
[2018-10-16] MEDS: INSULIN LISPRO 100 UNIT/ML 3 ML VIAL SUBCUT SCH ×4 (08:06→22:31)
[2018-10-16] MEDS: CALCIUM ACETATE 667 MG CAPSULE PO SCH ×3 (08:52→17:21)
[2018-10-16 09:28] LABS: ABSOLUTE LYMPHOCYTES (AUTO) 1.4 10^3/uL (0.5-4.7); ABSOLUTE NEUT (AUTO) 15.1 10^3/uL (1.7-8.2); BASOPHILS % (AUTO) 0.1 % (0-2); HEMATOCRIT 23.8 % (36.0-47.0); LYMPHOCYTES % (AUTO) 8.2 % (13-45); MEAN CORPUSCULAR HEMOGLOBIN 29.2 pg (27.0-33.4); MEAN CORPUSCULAR HGB CONC 32.3 g/dL (32.0-36.0); MEAN CORPUSCULAR VOLUME 90 fl (80-97); MONOCYTES % (AUTO) 5.7 % (3-13); PLATELET COUNT 143 10^3/uL (150-450); RED BLOOD COUNT 2.63 10^6/uL (3.72-5.28); RED CELL DISTRIBUTION WIDTH 13.8 % (11.5-14.0); TOTAL CELLS COUNTED % (AUTO) 100 %; WHITE BLOOD COUNT 17.5 10^3/uL (4.0-10.5)
[2018-10-16] MEDS ORDERED: ONDANSETRON 4 MG TAB.RAPDIS PO PRN (09:32)
[2018-10-16 09:36] LABS: HEMOGLOBIN 7.7 g/dL (12.0-15.5)
[2018-10-16 10:01] LABS: ALANINE AMINOTRANSFERASE 35 U/L (9-52); ALBUMIN 2.6 g/dL (3.5-5.0); ALKALINE PHOSPHATASE 58 U/L (38-126); ANION GAP 10 (5-19); ASPARTATE AMINO TRANSFERASE 19 U/L (14-36); BILIRUBIN,DIRECT 0.3 mg/dL (0.0-0.4); BILIRUBIN,TOTAL 0.3 mg/dL (0.2-1.3); BLOOD UREA NITROGEN 33 mg/dL (7-20); CALCIUM 8.5 mg/dL (8.4-10.2); CARBON DIOXIDE 21 mmol/L (22-30); CHLORIDE 108 mmol/L (98-107); GLUCOSE 213 mg/dL (75-110); POTASSIUM 3.9 mmol/L (3.6-5.0); SODIUM 138.5 mmol/L (137-145); TOTAL PROTEIN 4.8 g/dL (6.3-8.2)
[2018-10-16] MEDS: FLUOXETINE HCL 20 MG CAPSULE PO SCH (10:27)
[2018-10-16] MEDS: CYANOCOBALAMIN (VITAMIN B-12) 1,000 MCG TABLET PO SCH (10:27)
[2018-10-16] MEDS: ATENOLOL 50 MG TABLET PO SCH (10:27)
[2018-10-16 10:37] LABS: HEPATITIS C QUANTITATION HCV Not Detected IU/mL (.)
--- NOTE | 2018-10-16 13:14 | PDOC PROGRESS REPORT ---
Subjective Progress Note for:: 10/16/18 Subjective:: 53 year old female with past medical history of Crohn disease, diabetes mellitus, chronic kidney disease and chronic immunosuppression presented with 1 week history of nausea and vomiting. Patient denies any fever, chills, palpitation or diaphoresis. She endorses nausea and vomiting but no diarrhea. No headache dizziness or blurry vision. Her initial work-up reveals potassium 6.2 creatinine of 8.35 and a white cell count of 36,000. Her baseline creatinine is ranging between 2-3. Since patient is chronically on a steroid the leukocytosis might be explained by that but for the ability to start outpatient started on Levaquin and vancomycin. Will trend WBC. Her chest x-ray and CT scan of the abdomen is unremarkable. Her primary automatic maintainer is Dr. Snider at [facility]. Here to the ER attending consulted Dr. Mcgovern who scheduled her for dialysis today. Femoral dialysis catheter has been placed by Dr. Azar. [id number]-old female with multiple medical problems admitted for nausea and vomiting. Found to be in acute on chronic renal failure dialysis was initiated here in this hospital. She was able to do only 1 hour of dialysis yesterday. Permacath was placed yesterday. She is going to have her dialysis tomorrow. Patient is requesting to go outside to smoke. Offered her nicotine patches as per the patient nicotine patches make her suicidal. We do not have nicotine gums available in the hospital. No acute events in the last 24 hours. Afebrile. Since hemoglobin is 7.7 stable. Reason For Visit: METABOLIC ACIDOSIS,HYPERKALEMIA Physical Exam Vital Signs: Temp Pulse Resp BP Pulse Ox 97.7 F 62 20 128/63 H 100 10/16/18 11:33 10/16/18 11:33 10/16/18 11:33 10/16/18 11:33 10/16/18 11:33 Intake & Output 10/15/18 10/16/18 10/17/18 06:59 06:59 06:59 Intake Total 1140 Output Total 500 400 Balance -500 740 Weight 80.3 kg 81.9 kg General appearance: PRESENT: no acute distress Head exam: PRESENT: atraumatic Eye exam: PRESENT: PERRLA Mouth exam: PRESENT: moist, tongue midline Teeth exam: PRESENT: poor dentation Neck exam: ABSENT: carotid bruit, JVD, lymphadenopathy, thyromegaly Respiratory exam: PRESENT: clear to auscultation juan carlos, other - Permacath present on the right side of the chest.. ABSENT: rales, rhonchi, wheezes Cardiovascular exam: PRESENT: RRR. ABSENT: diastolic murmur, rubs, systolic murmur GI/Abdominal exam: PRESENT: normal bowel sounds, soft. ABSENT: distended, guarding, mass, organolmegaly, rebound, tenderness Rectal exam: PRESENT: deferred Neurological exam: PRESENT: alert, awake, oriented to person, oriented to place, oriented to time, oriented to situation, CN II-XII grossly intact. ABSENT: motor sensory deficit Psychiatric exam: PRESENT: appropriate affect, normal mood. ABSENT: homicidal ideation, suicidal ideation Results Laboratory Results: 10/16/18 08:57 10/16/18 08:57 10/16/18 10/16/18 08:57 08:57 WBC 17.5 H RBC 2.63 L Hgb 7.7 L Hct 23.8 L MCV 90 MCH 29.2 MCHC 32.3 RDW 13.8 Plt Count 143 L Seg Neutrophils % 86.0 H Lymphocytes % 8.2 L Monocytes % 5.7 Eosinophils % 0.0 Basophils % 0.1 Absolute Neutrophils 15.1 H Absolute Lymphocytes 1.4 Absolute Monocytes 1.0 Absolute Eosinophils 0.0 Absolute Basophils 0.0 Sodium 138.5 Potassium 3.9 Chloride 108 H Carbon Dioxide 21 L Anion Gap 10 BUN 33 H Creatinine 3.43 H Est GFR ( Amer) 17 L Est GFR (Non-Af Amer) 14 L Glucose 213 H Calcium 8.5 Magnesium 1.6 Total Bilirubin 0.3 AST 19 ALT 35 Alkaline Phosphatase 58 Total Protein 4.8 L Albumin 2.6 L 10/12/18 06:48 Blood Blood Culture - Final Staphylococcus Cohnii Impressions: Abdomen/Pelvis CT 10/12/18 06:47 IMPRESSION: 1. Continued abnormalities in the left upper pole and left proximal ureter worrisome for urothelial tumor. If not previously performed recommend urology consultation for left retrograde pyelogram. 2. New left inguinal adenopathy that may be reactive or metastatic. Recommend clinical correlation and appropriate follow-up. 3. Other chronic findings as above. Chest X-Ray 10/12/18 06:47 IMPRESSION: No acute cardiopulmonary abnormality copyright 2010 [employer]- All Rights Reserved Central Venous Line 10/15/18 00:00 IMPRESSION: IMAGE(S) OBTAINED DURING PROCEDURE. Assessment and Plan - Diagnosis (1) Acute on chronic renal failure Qualifiers: Acute renal failure type: unspecified Chronic kidney disease stage: unspecified stage Qualified Code(s): N17.9 - Acute kidney failure, unspecified; N18.9 - Chronic kidney disease, unspecified Is this a current diagnosis for this admission?: Yes Plan: 10/16/2018-patient admitted with acute on chronic renal failure. Patient has a number of hemodialysis after that the dialysis catheter was clotted permacath was placed yesterday she is going for the dialysis tomorrow. End-stage renal disease most likely secondary to diabetes mellitus. The plan was to set up outpatient dialysis with the [facility]. (2) Renal mass Is this a current diagnosis for this admission?: Yes Plan: She has newly diagnosed possible mass concerning for a urothelial tumor. She will need close ff-up and a referral for outpatient urology for this. 10/16/2018-patient found to have a renal mass concerning about your little tumor. Patient needs to follow-up with the urologist as an outpatient. CT scan indicates left upper lobe and left proximal ureter abnormalities concerning for urothelial tumor. (3) Gram-positive bacteremia Is this a current diagnosis for this admission?: Yes Plan: On vancomycin. Await final culture result. 10/16/2018-that cultures from 10/12/2018 came back Staphylococcus cohinni repeat blood cultures from 10/13/2018 came back negative. (4) Acute pancreatitis Is this a current diagnosis for this admission?: Yes Plan: Improved. Denies abdominal pain today. 10/16/2018-patient denies any abdominal pain today. Any nausea vomiting diarrhea. His lipase is 375. Admission lipase is 980 (5) Type 2 diabetes mellitus Is this a current diagnosis for this admission?: Yes Plan: HbA1c 7.5%. Continue insulin regimen. 10/16/2018-patient has history of type 2 diabetes mellitus. Latest hemoglobin A1c is 7.5 blood sugar this morning is 190. Plan is to continue insulin sliding scale. (6) Crohns disease Qualifiers: Gastrointestinal tract location: small and large intestine Digestive disease complication type: with intestinal obstruction Qualified Code(s): K50.812 - Crohn's disease of both small and large intestine with intestinal obstruction Is this a current diagnosis for this admission?: Yes Plan: In remission. Status post total colectomy, ileectomy. Ileostomy in place. Currently receiving Biologics on prednisone 20 mg p.o. daily. Started on Solu-Cortef to avoid adrenal crisis. Day two of IV steroids. Switch to p.o. home dosage as appropriate. 10/14/2018-ileostomy functioning. On Solu-Cortef. Consider weaning as sepsis is resolved. Continue other immune modulators. 10/16/2018-patient has history of Crohn's disease status post total colectomy, ileectomy and has a ileostomy in place. Presently on prednisone 20 mg p.o. daily. - Time Time Spent with patient: 25-34 minutes Medications reviewed and adjusted accordingly: Yes Anticipated discharge: Home
[2018-10-16] MEDS: GLIPIZIDE XL 5 MG TAB.ER.24 PO SCH (13:26)
[2018-10-16] MEDS: ALPRAZOLAM 0.25 MG TABLET PO PRN ×2 (13:31→22:30)
[2018-10-16] MEDS: PREDNISONE 10 MG TABLET PO SCH (14:47)
[2018-10-16] MEDS ORDERED: NORMAL SALINE 250 ML IV PRN ×2 (15:16)
[2018-10-16] MEDS: FOLIC ACID/VITAMIN B COMP W-C CAPSULE PO SCH (17:20)
--- NOTE | 2018-10-16 17:35 | PDOC PROGRESS REPORT ---
Subjective Progress Note for:: 10/16/18 Subjective:: Patient was not having a good day today. She was upset that she could not go out to smoke. Apparently she was caught couple of times to be outside smoking so she was told that she could not do that and she was upset about it. However she told me that she is going to comply with the rules and will do what ever we asked her to. She expressed her concern about her autistic son and she is very anxious to go home. Informed her that we are just waiting for [facility] to accept her as a patient prior to discharge. We will plan to do dialysis tomorrow and if everything goes well she can hopefully be discharge when we get the schedule from [facility]. Reason For Visit: METABOLIC ACIDOSIS,HYPERKALEMIA Physical Exam Vital Signs: Temp Pulse Resp BP Pulse Ox 97.9 F 71 16 99/73 L 97 10/16/18 15:49 10/16/18 15:49 10/16/18 15:49 10/16/18 15:49 10/16/18 15:49 Intake & Output 10/15/18 10/16/18 10/17/18 06:59 06:59 06:59 Intake Total 1140 480 Output Total 500 400 450 Balance -500 740 30 Weight 80.3 kg 81.9 kg Exam: General appearance: PRESENT: no acute distress, cooperative, well-developed, well-nourished Head exam: PRESENT: atraumatic, normocephalic Eye exam: PRESENT: conjunctiva pale, PERRLA. ABSENT: scleral icterus Neck exam: ABSENT: JVD Respiratory exam: PRESENT: Normal breath sounds. ABSENT: crackles, rales, rhonchi, unlabored, wheezes Cardiovascular exam: PRESENT: Regular rate rhythm -+S1, +S2. ABSENT: diastolic murmur, systolic murmur GI/Abdominal exam: PRESENT: normal bowel sounds, soft. Right lower quadrant ileostomy ABSENT: guarding, mass, tenderness Extremities exam: ABSENT: No edema Neurological exam: PRESENT: alert, awake, oriented to person, place and time. Skin exam: PRESENT: dry, warm, Cardiovascular exam: PRESENT: +S1, +S2 GI/Abdominal exam: PRESENT: soft, tenderness - Around the periumbilical area. She has got ileostomy to the right of the umbilicus.. ABSENT: distended, firm, guarding, hernia, mass, organomegaly, rebound Results Laboratory Results: 10/16/18 08:57 10/16/18 08:57 10/16/18 10/16/18 10/16/18 08:57 08:57 16:04 WBC 17.5 H RBC 2.63 L Hgb 7.7 L Hct 23.8 L MCV 90 MCH 29.2 MCHC 32.3 RDW 13.8 Plt Count 143 L Seg Neutrophils % 86.0 H Lymphocytes % 8.2 L Monocytes % 5.7 Eosinophils % 0.0 Basophils % 0.1 Absolute Neutrophils 15.1 H Absolute Lymphocytes 1.4 Absolute Monocytes 1.0 Absolute Eosinophils 0.0 Absolute Basophils 0.0 Sodium 138.5 Potassium 3.9 Chloride 108 H Carbon Dioxide 21 L Anion Gap 10 BUN 33 H Creatinine 3.43 H Est GFR ( Amer) 17 L Est GFR (Non-Af Amer) 14 L Glucose 213 H Calcium 8.5 Magnesium 1.6 Total Bilirubin 0.3 AST 19 ALT 35 Alkaline Phosphatase 58 Total Protein 4.8 L Albumin 2.6 L Blood Type A POSITIVE Antibody Screen NEGATIVE Impressions: Abdomen/Pelvis CT 10/12/18 06:47 IMPRESSION: 1. Continued abnormalities in the left upper pole and left proximal ureter worrisome for urothelial tumor. If not previously performed recommend urology consultation for left retrograde pyelogram. 2. New left inguinal adenopathy that may be reactive or metastatic. Recommend clinical correlation and appropriate follow-up. 3. Other chronic findings as above. Chest X-Ray 10/12/18 06:47 IMPRESSION: No acute cardiopulmonary abnormality copyright 2011 [employer]- All Rights Reserved Central Venous Line 10/15/18 00:00 IMPRESSION: IMAGE(S) OBTAINED DURING PROCEDURE. Assessment & Plan - Diagnosis (1) End stage renal disease on dialysis Is this a current diagnosis for this admission?: Yes Plan: Likely secondary to diabetic nephropathy in a patient also with history of nephrolithiasis. Patient has now gotten to the point that she would need chronic dialysis treatment and she is agreeable to continue with it. We will arrange chronic dialysis as an outpatient at [facility]. PermCath was placed by Dr. Mckenna on 10/15/2018. We will plan to do dialysis tomorrow via her new PermCat. If everything goes well and [facility] has signify acceptance of the patient then hopefully patient may be able to go home after dialysis tomorrow. (2) Acute kidney injury superimposed on chronic kidney disease Is this a current diagnosis for this admission?: Yes Plan: Patient initially presented with most likely severe dehydration due to her high output ileostomy. Currently the patient is at baseline kidney function which is actually still stage V. As stated above patient will be arranged for chronic dialysis treatment. (3) Acute pancreatitis Is this a current diagnosis for this admission?: Yes (4) Anemia Qualifiers: Iron deficiency anemia type: chronic blood loss Is this a current diagnosis for this admission?: Yes Plan: There is no evidence of active bleeding. We will start Procrit to be given to dialysis. Patient is also scheduled to receive 2 units of packed RBC during dialysis tomorrow. This could be a multifactorial anemia due to chronic kidney disease and Crohn's disease. (5) Crohns disease Qualifiers: Gastrointestinal tract location: small and large intestine Digestive disease complication type: with intestinal obstruction Qualified Code(s): K50.812 - Crohn's disease of both small and large intestine with intestinal obstruction Is this a current diagnosis for this admission?: Yes Plan: Switch to prednisone today. (6) Hyperkalemia Is this a current diagnosis for this admission?: Yes Plan: Resolved after initiation of dialysis treatment. (7) Lesion of left [place] kidney Is this a current diagnosis for this admission?: Yes Plan: Patient would need an outpatient urology consult and follow-up for further management and work-up of this lesion. (8) Metabolic acidosis Is this a current diagnosis for this admission?: Yes Plan: Resolved with dialysis treatment. (9) Type 2 diabetes mellitus Is this a current diagnosis for this admission?: Yes (10) Sepsis Qualifiers: Sepsis type: sepsis due to unspecified organism Qualified Code(s): A41.9 - Sepsis, unspecified organism Is this a current diagnosis for this admission?: Yes Plan: Currently on IV antibiotics. Blood cultures only came out with Staphylococcus Cohnii which could be a contaminant. Other cultures are negative. (11) Hyperphosphatemia Is this a current diagnosis for this admission?: Yes Plan: We will start calcium acetate 667 mg 2 capsules with meals. We will start also patient with Nephrocaps multivitamins daily. 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
[2018-10-16] MEDS: ATORVASTATIN CALCIUM 10 MG TABLET PO SCH (22:30)
[2018-10-16] MEDS: FAMOTIDINE 20 MG TABLET PO SCH (22:31)
[2018-10-17] MEDS ORDERED: EPOETIN ALFA INJ 40000 UNIT/1 ML (RENAL) IV PRN (05:00)
[2018-10-17] MEDS ORDERED: NORMAL SALINE 1000 ML 1,000 ML IV PRN (05:00)
[2018-10-17] MEDS: HEPARIN SOD (PORCINE) 5,000 UNIT/ML 1 ML SYRINGE SUBCUT SCH ×2 (05:07→16:31)
[2018-10-17] MEDS: HYDROCORTISONE SOD SUCCINATE INJ/PF 100 MG/2 ML SDV IV SCH (05:22)
[2018-10-17 06:26] LABS: HEMATOCRIT 26.1 % (36.0-47.0); HEMOGLOBIN 8.3 g/dL (12.0-15.5); MEAN CORPUSCULAR HEMOGLOBIN 28.6 pg (27.0-33.4); MEAN CORPUSCULAR HGB CONC 31.7 g/dL (32.0-36.0); MEAN CORPUSCULAR VOLUME 90 fl (80-97); PLATELET COUNT 135 10^3/uL (150-450); RED BLOOD COUNT 2.89 10^6/uL (3.72-5.28); RED CELL DISTRIBUTION WIDTH 14.3 % (11.5-14.0); WHITE BLOOD COUNT 19.3 10^3/uL (4.0-10.5)
[2018-10-17 06:36] LABS: BLOOD UREA NITROGEN 37 mg/dL (7-20); CALCIUM 8.6 mg/dL (8.4-10.2); GLUCOSE 167 mg/dL (75-110)
[2018-10-17 06:37] LABS: ALANINE AMINOTRANSFERASE 38 U/L (9-52); ALBUMIN 2.7 g/dL (3.5-5.0); ALKALINE PHOSPHATASE 45 U/L (38-126); ANION GAP 10 (5-19); ASPARTATE AMINO TRANSFERASE 24 U/L (14-36); BILIRUBIN,DIRECT 0.4 mg/dL (0.0-0.4); BILIRUBIN,TOTAL 0.5 mg/dL (0.2-1.3); CARBON DIOXIDE 22 mmol/L (22-30); CHLORIDE 107 mmol/L (98-107); POTASSIUM 4.5 mmol/L (3.6-5.0); SODIUM 138.7 mmol/L (137-145); TOTAL PROTEIN 5.2 g/dL (6.3-8.2)
[2018-10-17 06:42] LABS: BASOPHILS % (MANUAL) 0 % (0-2); EOSINOPHILS % (MANUAL) 0 % (0-6); METAMYELOCYTES % (MANUAL) 2 % (0); TOTAL CELLS COUNTED 100
[2018-10-17 06:43] LABS: ABSOLUTE MONOCYTES # (MANUAL) 1.4 10^3/uL (0.1-1.4); LYMPHOCYTES % (MANUAL) 5 % (13-45); MONOCYTES % (MANUAL) 7 % (3-13); PLATELET COMMENT DECREASED; RBC MORPHOLOGY COMMENT NORMO-CYTIC/CHROMIC; SEGMENTED NEUTROPHILS % (MAN) 86 % (42-78)
[2018-10-17] MEDS: INSULIN LISPRO 100 UNIT/ML 3 ML VIAL SUBCUT SCH ×2 (08:25→11:51)
[2018-10-17] MEDS: CALCIUM ACETATE 667 MG CAPSULE PO SCH ×2 (08:25→11:53)
[2018-10-17] MEDS: CYANOCOBALAMIN (VITAMIN B-12) 1,000 MCG TABLET PO SCH (09:50)
[2018-10-17] MEDS: PREDNISONE 10 MG TABLET PO SCH (09:50)
[2018-10-17] MEDS: ATENOLOL 50 MG TABLET PO SCH (09:50)
[2018-10-17] MEDS: FLUOXETINE HCL 20 MG CAPSULE PO SCH (09:50)
[2018-10-17] MEDS: GLIPIZIDE XL 5 MG TAB.ER.24 PO SCH (09:50)
--- NOTE | 2018-10-17 09:53 | PDOC PROGRESS REPORT ---
Subjective Progress Note for:: 10/17/18 Subjective:: 53 year old female with past medical history of Crohn disease, diabetes mellitus, chronic kidney disease and chronic immunosuppression presented with 1 week history of nausea and vomiting. Patient denies any fever, chills, palpitation or diaphoresis. She endorses nausea and vomiting but no diarrhea. No headache dizziness or blurry vision. Her initial work-up reveals potassium 6.2 creatinine of 8.35 and a white cell count of 36,000. Her baseline creatinine is ranging between 2-3. Since patient is chronically on a steroid the leukocytosis might be explained by that but for the ability to start outpatient started on Levaquin and vancomycin. Will trend WBC. Her chest x-ray and CT scan of the abdomen is unremarkable. Her primary supply chain analyst is Dr. Snider at [facility]. Here to the ER attending consulted Dr. Mcgovern who scheduled her for dialysis today. Femoral dialysis catheter has been placed by Dr. Azar. 10/16/[id number]-rogy-old female with multiple medical problems admitted for nausea and vomiting. Found to be in acute on chronic renal failure dialysis was initiated here in this hospital. She was able to do only 1 hour of dialysis yesterday. Permacath was placed yesterday. She is going to have her dialysis tomorrow. Patient is requesting to go outside to smoke. Offered her nicotine patches as per the patient nicotine patches make her suicidal. We do not have nicotine gums available in the hospital. No acute events in the last 24 hours. Afebrile. Since hemoglobin is 7.7 stable. 10/17/2018-no acute events in the last 24 hours. Patient is afebrile. She is going for the dialysis today. Waiting for chair at [facility] as an outpatient. Comfortably in the bed communicating well. Wants to go out of the floor sit on the bench outside. Reason For Visit: METABOLIC ACIDOSIS,HYPERKALEMIA Physical Exam Vital Signs: Temp Pulse Resp BP Pulse Ox 97.4 F 65 16 121/59 L 97 10/17/18 07:24 10/17/18 07:24 10/17/18 07:24 10/17/18 07:24 10/17/18 07:24 Intake & Output 10/16/18 10/17/18 10/18/18 06:59 06:59 06:59 Intake Total 1140 1118 Output Total 400 750 Balance 740 368 Weight 81.9 kg 81.9 kg General appearance: PRESENT: no acute distress Head exam: PRESENT: atraumatic Eye exam: PRESENT: PERRLA Mouth exam: PRESENT: moist, tongue midline Neck exam: ABSENT: carotid bruit, JVD, lymphadenopathy, thyromegaly Respiratory exam: PRESENT: decreased breath sounds Cardiovascular exam: PRESENT: RRR. ABSENT: diastolic murmur, rubs, systolic murmur GI/Abdominal exam: PRESENT: normal bowel sounds, soft. ABSENT: distended, guarding, mass, organolmegaly, rebound, tenderness Rectal exam: PRESENT: deferred Extremities exam: PRESENT: full ROM. ABSENT: calf tenderness, clubbing, pedal edema Neurological exam: PRESENT: alert, awake, oriented to person, oriented to place, oriented to time, oriented to situation, CN II-XII grossly intact. ABSENT: motor sensory deficit Psychiatric exam: PRESENT: appropriate affect, normal mood. ABSENT: homicidal ideation, suicidal ideation Results Laboratory Results: 10/17/18 05:47 10/17/18 05:47 10/16/18 10/16/18 10/17/18 08:57 16:04 05:47 WBC 19.3 H RBC 2.89 L Hgb 8.3 L Hct 26.1 L MCV 90 MCH 28.6 MCHC 31.7 L RDW 14.3 H Plt Count 135 L Seg Neutrophils % Not Reportable Lymphocytes % Not Reportable Monocytes % Not Reportable Eosinophils % Not Reportable Basophils % Not Reportable Absolute Neutrophils Not Reportable Absolute Lymphocytes Not Reportable Absolute Monocytes Not Reportable Absolute Eosinophils Not Reportable Absolute Basophils Not Reportable Sodium 138.5 Potassium 3.9 Chloride 108 H Carbon Dioxide 21 L Anion Gap 10 BUN 33 H Creatinine 3.43 H Est GFR ( Amer) 17 L Est GFR (Non-Af Amer) 14 L Glucose 213 H Calcium 8.5 Magnesium 1.6 Total Bilirubin 0.3 AST 19 ALT 35 Alkaline Phosphatase 58 Total Protein 4.8 L Albumin 2.6 L Blood Type A POSITIVE Antibody Screen NEGATIVE 10/17/18 05:47 WBC RBC Hgb Hct MCV MCH MCHC RDW Plt Count Seg Neutrophils % Lymphocytes % Monocytes % Eosinophils % Basophils % Absolute Neutrophils Absolute Lymphocytes Absolute Monocytes Absolute Eosinophils Absolute Basophils Sodium 138.7 Potassium 4.5 Chloride 107 Carbon Dioxide 22 Anion Gap 10 BUN 37 H Creatinine 3.32 H Est GFR ( Amer) 17 L Est GFR (Non-Af Amer) 14 L Glucose 167 H Calcium 8.6 Magnesium 1.6 Total Bilirubin 0.5 AST 24 ALT 38 Alkaline Phosphatase 45 Total Protein 5.2 L Albumin 2.7 L Blood Type Antibody Screen 10/12/18 09:27 Blood Blood Culture - Final NO GROWTH IN 5 DAYS Impressions: Abdomen/Pelvis CT 10/12/18 06:47 IMPRESSION: 1. Continued abnormalities in the left upper pole and left proximal ureter worrisome for urothelial tumor. If not previously performed recommend urology consultation for left retrograde pyelogram. 2. New left inguinal adenopathy that may be reactive or metastatic. Recommend clinical correlation and appropriate follow-up. 3. Other chronic findings as above. Chest X-Ray 10/12/18 06:47 IMPRESSION: No acute cardiopulmonary abnormality copyright 2010 [employer]- All Rights Reserved Central Venous Line 10/15/18 00:00 IMPRESSION: IMAGE(S) OBTAINED DURING PROCEDURE. Assessment and Plan - Diagnosis (1) Acute on chronic renal failure Qualifiers: Acute renal failure type: unspecified Chronic kidney disease stage: unspecified stage Qualified Code(s): N17.9 - Acute kidney failure, unspecified; N18.9 - Chronic kidney disease, unspecified Is this a current diagnosis for this admission?: Yes Plan: 10/16/2018-patient admitted with acute on chronic renal failure. Patient has a number of hemodialysis after that the dialysis catheter was clotted permacath was placed yesterday she is going for the dialysis tomorrow. End-stage renal disease most likely secondary to diabetes mellitus. The plan was to set up outpatient dialysis with the [facility]. 10/[id number]-lzlj-old female admitted for acute on chronic renal failure. Now declared end-stage renal disease. On hemodialysis. She is going for dialysis today she is going to receive 2 units of PRBC during the dialysis. Waiting for chair at [facility] dialysis centre. (2) Renal mass Is this a current diagnosis for this admission?: Yes Plan: She has newly diagnosed possible mass concerning for a urothelial tumor. She will need close ff-up and a referral for outpatient urology for this. 10/16/2018-patient found to have a renal mass concerning about urithelial tumor. Patient needs to follow-up with the urologist as an outpatient. CT scan indicates left upper lobe and left proximal ureter abnormalities concerning for urothelial tumor. 10/17/2018-patient is a fear that she needs to follow-up with urologist as an outpatient for concerns about urothelial tumor. (3) Gram-positive bacteremia Is this a current diagnosis for this admission?: Yes Plan: On vancomycin. Await final culture result. 10/16/2018-that cultures from 10/12/2018 came back Staphylococcus cohinni repeat blood cultures from 10/13/2018 came back negative. 10/17/2018-blood cultures from 10/12/2018 came back positive for Staphylococcus cohinni, repeat blood cultures are negative so far. Wound culture showing gram- positive cocci and gram-negative rods. Patient's WBC count is 19,300. may Be secondary to Solu-Cortef. Patient is afebrile. (4) Acute pancreatitis Is this a current diagnosis for this admission?: Yes Plan: Improved. Denies abdominal pain today. 10/16/2018-patient denies any abdominal pain today. Any nausea vomiting diarrhea. latest lipase is 375. Admission lipase is 980 10/17/2018-no complaints of abdominal pain today. Lipase level at the time of admission is 980 and it is improved to 375. (5) Type 2 diabetes mellitus Is this a current diagnosis for this admission?: Yes Plan: HbA1c 7.5%. Continue insulin regimen. 10/16/2018-patient has history of type 2 diabetes mellitus. Latest hemoglobin A1c is 7.5 blood sugar this morning is 190. Plan is to continue insulin sliding scale. 10/17/2018-patient has history of type 2 diabetes mellitus latest blood sugar is 167 stable. Hemoglobin A1c 7.5. Presently on insulin sliding scale plan is to continue the present management. (6) Crohns disease Qualifiers: Gastrointestinal tract location: small and large intestine Digestive disease complication type: with intestinal obstruction Qualified Code(s): K50.812 - Crohn's disease of both small and large intestine with intestinal obstruction Is this a current diagnosis for this admission?: Yes Plan: In remission. Status post total colectomy, ileectomy. Ileostomy in place. Currently receiving Biologics on prednisone 20 mg p.o. daily. Started on Solu-Cortef to avoid adrenal crisis. Day two of IV steroids. Switch to p.o. home dosage as appropriate. 10/14/2018-ileostomy functioning. On Solu-Cortef. Consider weaning as sepsis is resolved. Continue other immune modulators. 10/16/2018-patient has history of Crohn's disease status post total colectomy, ileectomy and has a ileostomy in place. Presently on prednisone 20 mg p.o. daily. 10/17/2018-patient has history of Crohn's disease with total colectomy, ileectomy and has ileostomy in place. No complaints. Presently on prednisone 20 mg p.o. daily. Solu-Cortef was discontinued. - Time Time Spent with patient: 25-34 minutes Smoking Cessation Education: over 10 minutes Medications reviewed and adjusted accordingly: Yes Anticipated discharge: Home
[2018-10-17 12:19] LABS: VANCOMYCIN,TROUGH 8.3 ug/mL (5.0-20.0)
[2018-10-17 15:19] VITALS: BP 140/75
--- NOTE | 2018-10-17 16:23 | PDOC DISCHARGE SUMMARY ---
General - Admit/Disc Date/PCP Admission Date/Primary Care Provider: 10/12/18 09:00 JALYN MORALES MD Discharge Date: 10/17/18 - Discharge Diagnosis (1) Acute on chronic renal failure Is this a current diagnosis for this admission?: Yes Summary: 10/16/2018-patient admitted with acute on chronic renal failure. Patient has a number of hemodialysis after that the dialysis catheter was clotted permacath was placed yesterday she is going for the dialysis tomorrow. End-stage renal disease most likely secondary to diabetes mellitus. The plan was to set up outpatient dialysis with the [facility]. 10/17/[id number]-znnl-old female admitted for acute on chronic renal failure. Now declared end-stage renal disease. On hemodialysis. She is going for dialysis today she is going to receive 2 units of PRBC during the dialysis. Waiting for chair at [facility] dialysis centre. (2) Renal mass Is this a current diagnosis for this admission?: Yes Summary: She has newly diagnosed possible mass concerning for a urothelial tumor. She will need close ff-up and a referral for outpatient urology for this. 10/16/2018-patient found to have a renal mass concerning about urithelial tumor. Patient needs to follow-up with the urologist as an outpatient. CT scan indicates left upper lobe and left proximal ureter abnormalities concerning for urothelial tumor. 10/17/2018-patient is a fear that she needs to follow-up with urologist as an outpatient for concerns about urothelial tumor. (3) Gram-positive bacteremia Is this a current diagnosis for this admission?: Yes Summary: On vancomycin. Await final culture result. 10/16/2018-that cultures from 10/12/2018 came back Staphylococcus cohinni repeat blood cultures from 10/13/2018 came back negative. 10/17/2018-blood cultures from 10/12/2018 came back positive for Staphylococcus cohinni, repeat blood cultures are negative so far. Wound culture showing gram- positive cocci and gram-negative rods. Patient's WBC count is 19,300. may Be secondary to Solu-Cortef. Patient is afebrile. (4) Acute pancreatitis Is this a current diagnosis for this admission?: Yes Summary: Improved. Denies abdominal pain today. 10/16/2018-patient denies any abdominal pain today. Any nausea vomiting diarrhea. latest lipase is 375. Admission lipase is 980 10/17/2018-no complaints of abdominal pain today. Lipase level at the time of admission is 980 and it is improved to 375. (5) Type 2 diabetes mellitus Is this a current diagnosis for this admission?: Yes Summary: HbA1c 7.5%. Continue insulin regimen. 10/16/2018-patient has history of type 2 diabetes mellitus. Latest hemoglobin A1c is 7.5 blood sugar this morning is 190. Plan is to continue insulin sliding scale. 10/17/2018-patient has history of type 2 diabetes mellitus latest blood sugar is 167 stable. Hemoglobin A1c 7.5. Presently on insulin sliding scale plan is to continue the present management. (6) Crohns disease Is this a current diagnosis for this admission?: Yes Summary: In remission. Status post total colectomy, ileectomy. Ileostomy in place. Currently receiving Biologics on prednisone 20 mg p.o. daily. Started on Solu-Cortef to avoid adrenal crisis. Day two of IV steroids. Switch to p.o. home dosage as appropriate. 10/14/2018-ileostomy functioning. On Solu-Cortef. Consider weaning as sepsis is resolved. Continue other immune modulators. 10/16/2018-patient has history of Crohn's disease status post total colectomy, ileectomy and has a ileostomy in place. Presently on prednisone 20 mg p.o. daily. 10/17/2018-patient has history of Crohn's disease with total colectomy, ileectomy and has ileostomy in place. No complaints. Presently on prednisone 20 mg p.o. daily. Solu-Cortef was discontinued. - Additional Information Resuscitation Status: Full Code Discharge Diet: Cardiac Discharge Activity: Activity As Tolerated Home Medications: Atenolol [Tenormin] 50 mg PO DAILY 08/25/17 Cyanocobalamin (Vitamin B-12) [B-12] 1,000 mcg PO DAILY 08/25/17 Fluoxetine HCl 40 mg PO DAILY 08/25/17 Glipizide [Glipizide Xl] 10 mg PO DAILY 08/25/17 Omeprazole 40 mg PO DAILY 08/25/17 Ondansetron HCl [Zofran 4 mg Tablet] 1 tab PO Q8 PRN 08/25/17 Pravastatin Sodium [Pravachol] 20 mg PO QHS 08/25/17 Epoetin Mckay [Procrit Inj 40,000 Unit/1 ml Vial (Renal)] 40,000 unit IV .DIALYSIS PRN vial 10/17/18 Prednisone [Deltasone 10 mg Tablet] 10 mg PO DAILY tablet 10/17/18 History of Present Illness History of Present Illness: DARRELL OLIVARES is a 53 year old female 53 year old female with past medical history of Crohn disease, diabetes mellitus, chronic kidney disease and chronic immunosuppression presented with 1 week history of nausea and vomiting. Patient denies any fever, chills, palpitation or diaphoresis. She endorses nausea and vomiting but no diarrhea. No headache dizziness or blurry vision. Her initial work-up reveals potassium 6.2 creatinine of 8.35 and a white cell count of 36,000. Her baseline creatinine is ranging between 2-3. Since patient is chronically on a steroid the leukocytosis might be explained by that but for the ability to start outpatient started on Levaquin and vancomycin. Will trend WBC. Her chest x-ray and CT scan of the abdomen is unremarkable. Her primary cook chili is Dr. Snider at [facility]. Here to the ER attending consulted Dr. Mcgovern who scheduled her for dialysis today. Femoral dialysis catheter has been placed by Dr. Azar. Hospital Course Hospital Course: 53 year old female with past medical history of Crohn disease, diabetes mellitus, chronic kidney disease and chronic immunosuppression presented with 1 week history of nausea and vomiting. Patient denies any fever, chills, palpitation or diaphoresis. She endorses nausea and vomiting but no diarrhea. No headache dizziness or blurry vision. Her initial work-up reveals potassium 6.2 creatinine of 8.35 and a white cell count of 36,000. Her baseline creatinine is ranging between 2-3. Since patient is chronically on a steroid the leukocytosis might be explained by that but for the ability to start outpatient started on Levaquin and vancomycin. Will trend WBC. Her chest x-ray and CT scan of the abdomen is unremarkable. Her primary cook chili is Dr. Snider at [facility]. Here to the ER attending consulted Dr. Mcgovern who scheduled her for dialysis today. Femoral dialysis catheter has been placed by Dr. Azar. 10/16/[id number]-hyhd-old female with multiple medical problems admitted for nausea and vomiting. Found to be in acute on chronic renal failure dialysis was initiated here in this hospital. She was able to do only 1 hour of dialysis yesterday. Permacath was placed yesterday. She is going to have her dialysis tomorrow. Patient is requesting to go outside to smoke. Offered her nicotine patches as per the patient nicotine patches make her suicidal. We do not have nicotine gums available in the hospital. No acute events in the last 24 hours. Afebrile. Since hemoglobin is 7.7 stable. 10/17/2018-no acute events in the last 24 hours. Patient is afebrile. She is going for the dialysis today. Waiting for chair at [facility] as an outpatient. Comfortably in the bed communicating well. Wants to go out of the floor sit on the bench outside. Reason For Visit: Physical Exam Vital Signs: Temp Pulse Resp BP Pulse Ox 98.1 F 60 18 140/75 H 97 10/17/18 15:18 10/17/18 15:18 10/17/18 15:18 10/17/18 15:18 10/17/18 15:18 Intake & Output 10/16/18 10/17/18 10/18/18 06:59 06:59 06:59 Intake Total 1140 1118 236 Output Total 400 750 0 Balance 740 368 236 Weight 81.9 kg 81.9 kg General appearance: PRESENT: no acute distress, mild distress Head exam: PRESENT: atraumatic Eye exam: PRESENT: PERRLA Ear exam: PRESENT: normal external ear exam Mouth exam: PRESENT: moist, tongue midline Teeth exam: PRESENT: poor dentation Neck exam: ABSENT: carotid bruit, JVD, lymphadenopathy, thyromegaly Respiratory exam: PRESENT: clear to auscultation juan carlos. ABSENT: rales, rhonchi, wheezes Pulses: PRESENT: normal dorsalis pedis pul GI/Abdominal exam: PRESENT: other - Patient has a ileostomy and ileostomy site is clean. Rectal exam: PRESENT: deferred Extremities exam: PRESENT: full ROM. ABSENT: calf tenderness, clubbing, pedal edema Neurological exam: PRESENT: alert, awake, oriented to person, oriented to place, oriented to time, oriented to situation, CN II-XII grossly intact. ABSENT: motor sensory deficit Results Laboratory Results: 10/17/18 05:47 10/17/18 05:47 10/16/18 10/17/18 10/17/18 16:04 05:47 05:47 WBC 19.3 H RBC 2.89 L Hgb 8.3 L Hct 26.1 L MCV 90 MCH 28.6 MCHC 31.7 L RDW 14.3 H Plt Count 135 L Seg Neutrophils % Not Reportable Lymphocytes % Not Reportable Monocytes % Not Reportable Eosinophils % Not Reportable Basophils % Not Reportable Absolute Neutrophils Not Reportable Absolute Lymphocytes Not Reportable Absolute Monocytes Not Reportable Absolute Eosinophils Not Reportable Absolute Basophils Not Reportable Sodium 138.7 Potassium 4.5 Chloride 107 Carbon Dioxide 22 Anion Gap 10 BUN 37 H Creatinine 3.32 H Est GFR ( Amer) 17 L Est GFR (Non-Af Amer) 14 L Glucose 167 H Calcium 8.6 Magnesium 1.6 Total Bilirubin 0.5 AST 24 ALT 38 Alkaline Phosphatase 45 Total Protein 5.2 L Albumin 2.7 L Blood Type A POSITIVE Antibody Screen NEGATIVE 10/12/18 09:27 Blood Blood Culture - Final NO GROWTH IN 5 DAYS Impressions: Abdomen/Pelvis CT 10/12/18 06:47 IMPRESSION: 1. Continued abnormalities in the left upper pole and left proximal ureter worrisome for urothelial tumor. If not previously performed recommend urology consultation for left retrograde pyelogram. 2. New left inguinal adenopathy that may be reactive or metastatic. Recommend clinical correlation and appropriate follow-up. 3. Other chronic findings as above. Chest X-Ray 10/12/18 06:47 IMPRESSION: No acute cardiopulmonary abnormality copyright 2011 [employer]- All Rights Reserved Central Venous Line 10/15/18 00:00 IMPRESSION: IMAGE(S) OBTAINED DURING PROCEDURE. Qualifiers - * PATIENT BEING DISCHARGED WITH ANY OF THE FOLLOWING DIAGNOSIS: No VTE patient discharged on overlapping Therapy?: No Acute Heart Failure Is this a Heart Failure Patient?: No Plan Discharge Plan: Patient is discharged home today. Time Spent: Greater than 30 Minutes
--- NOTE | 2018-10-17 18:08 | PDOC PROGRESS REPORT ---
Subjective Progress Note for:: 10/17/18 Subjective:: Saw the patient during dialysis this afternoon. She is in good spirits today and she has done very well during dialysis. Her PermCath has worked well without any problems. She also received 2 units of packed RBC during dialysis without any complications. Patient has no new complaints and indicated that she is ready to go home. She has also been accepted as a patient in [facility] and has scheduled time. Reason For Visit: METABOLIC ACIDOSIS,HYPERKALEMIA Physical Exam Vital Signs: Temp Pulse Resp BP Pulse Ox 98.1 F 60 18 140/75 H 97 10/17/18 15:18 10/17/18 15:18 10/17/18 15:18 10/17/18 15:18 10/17/18 15:18 Intake & Output 10/16/18 10/17/18 10/18/18 06:59 06:59 06:59 Intake Total 1140 1118 236 Output Total 400 750 Balance 740 368 236 Weight 81.9 kg 81.9 kg Vitals during dialysis: Blood pressure 150/80, heart rate of 60, blood flow of 250 more prominent and dialysate flow rate of 500 mL/min. Exam: General appearance: PRESENT: no acute distress, cooperative, well-developed, well-nourished Head exam: PRESENT: atraumatic, normocephalic Eye exam: PRESENT: conjunctiva slightly pale, PERRLA. ABSENT: scleral icterus Neck exam: ABSENT: JVD Respiratory exam: PRESENT: Normal breath sounds. ABSENT: crackles, rales, rhonchi, unlabored, wheezes Cardiovascular exam: PRESENT: Regular rate rhythm -+S1, +S2. ABSENT: diastolic murmur, systolic murmur GI/Abdominal exam: PRESENT: normal bowel sounds, soft. ABSENT: guarding, mass, tenderness Extremities exam: ABSENT: No edema Neurological exam: PRESENT: alert, awake, oriented to person, place and time. Skin exam: PRESENT: dry, warm, Cardiovascular exam: PRESENT: +S1, +S2 GI/Abdominal exam: PRESENT: soft, tenderness - Around the periumbilical area. She has got ileostomy to the right of the umbilicus.. ABSENT: distended, firm, guarding, hernia, mass, organomegaly, rebound Results Laboratory Results: 10/17/18 05:47 10/17/18 05:47 10/16/18 10/17/18 10/17/18 16:04 05:47 05:47 WBC 19.3 H RBC 2.89 L Hgb 8.3 L Hct 26.1 L MCV 90 MCH 28.6 MCHC 31.7 L RDW 14.3 H Plt Count 135 L Seg Neutrophils % Not Reportable Lymphocytes % Not Reportable Monocytes % Not Reportable Eosinophils % Not Reportable Basophils % Not Reportable Absolute Neutrophils Not Reportable Absolute Lymphocytes Not Reportable Absolute Monocytes Not Reportable Absolute Eosinophils Not Reportable Absolute Basophils Not Reportable Sodium 138.7 Potassium 4.5 Chloride 107 Carbon Dioxide 22 Anion Gap 10 BUN 37 H Creatinine 3.32 H Est GFR ( Amer) 17 L Est GFR (Non-Af Amer) 14 L Glucose 167 H Calcium 8.6 Magnesium 1.6 Total Bilirubin 0.5 AST 24 ALT 38 Alkaline Phosphatase 45 Total Protein 5.2 L Albumin 2.7 L Blood Type A POSITIVE Antibody Screen NEGATIVE 10/12/18 09:27 Blood Blood Culture - Final NO GROWTH IN 5 DAYS Impressions: Abdomen/Pelvis CT 10/12/18 06:47 IMPRESSION: 1. Continued abnormalities in the left upper pole and left proximal ureter worrisome for urothelial tumor. If not previously performed recommend urology consultation for left retrograde pyelogram. 2. New left inguinal adenopathy that may be reactive or metastatic. Recommend clinical correlation and appropriate follow-up. 3. Other chronic findings as above. Chest X-Ray 10/12/18 06:47 IMPRESSION: No acute cardiopulmonary abnormality copyright 2011 [employer]- All Rights Reserved Central Venous Line 10/15/18 00:00 IMPRESSION: IMAGE(S) OBTAINED DURING PROCEDURE. Assessment & Plan - Diagnosis (1) End stage renal disease on dialysis Is this a current diagnosis for this admission?: Yes Plan: We did dialysis today for 3 hours, using the patient's PermCath, with 2 potassium bath, blood flow rate of 250 mL per minute, dialysate flow rate of 500 mL per minute, ultrafiltration none, no heparin and Procrit with 40,000 units during dialysis intravenously. Patient was monitored throughout dialysis treatment and had no complications. From nephrology standpoint I think patient can be safely discharged home today. I informed Dr. Culp and the patient that she has been accepted at [facility] as a patient. If discharged tonight she needs to be there on Monday at 10:30 AM to sign paperwork's. Her next dialysis will be on Monday at [facility]. (2) Acute kidney injury superimposed on chronic kidney disease Is this a current diagnosis for this admission?: Yes Plan: Patient initially presented with most likely severe dehydration due to her high output ileostomy. Currently the patient is at baseline kidney function which is actually still stage V requiring dialysis. As stated above patient will be arranged for chronic dialysis treatment. (3) Acute pancreatitis Is this a current diagnosis for this admission?: Yes (4) Anemia Qualifiers: Iron deficiency anemia type: chronic blood loss Is this a current diagnosis for this admission?: Yes Plan: She was transfused 2 units of packed RBC during dialysis today. We also gave her Procrit. (5) Crohns disease Qualifiers: Gastrointestinal tract location: small and large intestine Digestive disease complication type: with intestinal obstruction Qualified Code(s): K50.812 - Crohn's disease of both small and large intestine with intestinal obstruction Is this a current diagnosis for this admission?: Yes Plan: She was treated with steroids.. (6) Hyperkalemia Is this a current diagnosis for this admission?: Yes Plan: Resolved after initiation of dialysis treatment. (7) Lesion of left agdaagux kidney Is this a current diagnosis for this admission?: Yes Plan: Patient would need an outpatient urology consult and follow-up for further management and work-up of this lesion. (8) Metabolic acidosis Is this a current diagnosis for this admission?: Yes Plan: Resolved with dialysis treatment. (9) Type 2 diabetes mellitus Is this a current diagnosis for this admission?: Yes (10) Sepsis Qualifiers: Sepsis type: sepsis due to unspecified organism Qualified Code(s): A41.9 - Sepsis, unspecified organism Is this a current diagnosis for this admission?: Yes Plan: Blood cultures only came out with Staphylococcus Cohnii which could be a contaminant. Other cultures are negative. She was treated with IV vancomycin while here in the hospital. Since cultures are negative I do not think she needs further antibiotics. (11) Hyperphosphatemia Is this a current diagnosis for this admission?: Yes Plan: I started her on calcium acetate 667 mg 2 capsules with meals. Patient started with Nephrocaps multivitamins daily. (12) Short bowel syndrome Is this a current diagnosis for this admission?: Yes (13) Hypertension Is this a current diagnosis for this admission?: Yes (14) Thrombocytopenia Is this a current diagnosis for this admission?: Yes (15) Hypoalbuminemia Is this a current diagnosis for this admission?: Yes - Notes Notes: We will follow-up the patient at [facility]. - Time Time with patient: 15-25 minutes
--- NOTE | 2018-10-23 12:08 | Physician Advisory Note ---
Physician Advisor ProgressNote .: Pursuant to the plan for [facility], I have reviewed the medical record for this patient. Physician Advisor Statement: Asked by negotiations director to review chart to clarify dx sepsis vs bacteremia. Findings: 53yo w/DM, CKD stage __, Crohns dz w/colectomy/ileostomy, RA & ankyl osing spondylitis tx'd w/daily steroids, HTN on chronic beta veronica. -Initially "ill-appearing" in ED w/HR 110s-120s despite beta veronica, tachypnea to 24, BPs 101/88 & 132/67, WBC 34.5 (baseline 15-20 on chronic prednisone), MELODIE (Cr up from baseline 2-3 to 8.35) with prominent acute metabolic acidosis & lactate level 5.0, lipase 980, reported having chills. Was admitted to ICU, where she remained until 10/14. - Given 1L LR at 08:27, 1L Dextrose w/bicarb at 10:28, 1L NS wide open at 11:05, and NS at 125ml/hr starting at 15:24 and continuing through 10/14. - Despite 4+ liters of IV fluid, pt's BP dropped precipitously and quickly around mid-day and remained persistently quite hypotensive (BPs mostly 60s-90s/40s-60s with MAPs of 50s-60s through the rest of the first day and into the 2nd day. (For reference, MAPs <70 despite 2+L IVF are consistent with dx of shock) - Along with this, acute thrombocytopenia developed, to 140s, by day2. - Patient appears to have had acute hypoxemia, with O2 sat as low as 78%, and u se of 6L O2 at 15:31, documented; unfortunately the rest of the pt's O2 sats were not specified as to how much O2 was being given at time of recording. - MELODIE was stated as "Prerenal due to sepsis" and hypoxemia was also stated to be due to sepsis per note 10/13, while pt continued to evidence tachypnea and tachycardia. - BC of 10/12 grew Staph Cohnii, 1 of 2. BCs of 10/13 were neg. - PN of 10/14 stated "sepsis". - On 10/14AM, nursing note reports a "large abscess" under Lt axilla burst and drained "copious amts of ... pus..." - Wound culture grew GPC & GNRs: Peptostreptococcus, Prevotella, & "skin dyan". - Notes of 10/15- state "GP bacteremia". Attending, please clarify whether pt had: A. "sepsis, evidenced by " [were MELODIE & hypoxemia & persistent hypotension & thrombocytopenia due to sepsis or ____?], or B. "Bacteremia without sepsis or shock", or C. "Septic shock, evidenced by ", or ...? and whether this was due to: A. acute pancreatitis or B. Lt axillary abscess, or ...? and whether it was: A. present on admission or B. developed 48+ hrs after adm, or ...? Thanks! CK
[2018-11-03] MEDS ORDERED: CYANOCOBALAMIN (VITAMIN B-12) INJ 1000 MCG/1 ML VIAL IM SCH (10:00)
== END 2018-10-17 17:25 | disposition home or self-care (01) | DRG 871 ==
LOC: ER 04:49 → EH 09:00 → ICU 12:00 → 3S 10-14 15:45
PROVIDERS: ADMIT Internal Medicine; ATTEND Internal Medicine
PROC: 5A1D70Z Performance of Urinary Filtration, Intermittent, Less than 6 Hours Per Day (ICD-10-PCS; principal; 2018-10-12)
PROC: B54BZZA Ultrasonography of Right Lower Extremity Veins, Guidance (ICD-10-PCS; 2018-10-12)
PROC: 06HM33Z Insertion of Infusion Device into Right Femoral Vein, Percutaneous Approach (ICD-10-PCS; 2018-10-12)
PROC: 06H033Z Insertion of Infusion Device into Inferior Vena Cava, Percutaneous Approach (ICD-10-PCS; 2018-10-12)
PROC: 5A1D70Z Performance of Urinary Filtration, Intermittent, Less than 6 Hours Per Day (ICD-10-PCS; 2018-10-15)
PROC: 0JH63WZ Insertion of Totally Implantable Vascular Access Device into Chest Subcutaneous Tissue and Fascia, Percutaneous Approach (ICD-10-PCS; 2018-10-15)
PROC: 06H033Z Insertion of Infusion Device into Inferior Vena Cava, Percutaneous Approach (ICD-10-PCS; 2018-10-15)
PROC: B549ZZA Ultrasonography of Inferior Vena Cava, Guidance (ICD-10-PCS; 2018-10-15)
PROC: 30233N1 Transfusion of Nonautologous Red Blood Cells into Peripheral Vein, Percutaneous Approach (ICD-10-PCS; 2018-10-17)
DX: A41.9 Sepsis, unspecified organism (principal); K85.90 Acute pancreatitis without necrosis or infection, unspecified; N18.6 End stage renal disease; I12.0 Hypertensive chronic kidney disease with stage 5 chronic kidney disease or end stage renal disease; N17.9 Acute kidney failure, unspecified; E87.2 Acidosis; K50.812 Crohn's disease of both small and large intestine with intestinal obstruction; K91.2 Postsurgical malabsorption, not elsewhere classified; T82.898A Other specified complication of vascular prosthetic devices, implants and grafts, initial encounter; K86.1 Other chronic pancreatitis; D72.829 Elevated white blood cell count, unspecified; D50.0 Iron deficiency anemia secondary to blood loss (chronic); E87.5 Hyperkalemia; F17.210 Nicotine dependence, cigarettes, uncomplicated; E86.0 Dehydration; N28.89 Other specified disorders of kidney and ureter; Z93.2 Ileostomy status; E11.22 Type 2 diabetes mellitus with diabetic chronic kidney disease; M06.9 Rheumatoid arthritis, unspecified; E78.5 Hyperlipidemia, unspecified; F32.9 Major depressive disorder, single episode, unspecified; D69.6 Thrombocytopenia, unspecified; D63.1 Anemia in chronic kidney disease; E83.39 Other disorders of phosphorus metabolism; Y84.8 Other medical procedures as the cause of abnormal reaction of the patient, or of later complication, without mention of misadventure at the time of the procedure; Z79.52 Long term (current) use of systemic steroids; Z79.84 Long term (current) use of oral hypoglycemic drugs; Z90.49 Acquired absence of other specified parts of digestive tract; Z88.0 Allergy status to penicillin; Z88.8 Allergy status to other drugs, medicaments and biological substances; Z92.25 Personal history of immunosuppression therapy
CPT/HCPCS: 36415; 36430; 36558; 71045; 74176; 76937; 77001; 80048; 80053; 80202; 82607; 82728; 82746; 82803; 82962; 83540; 83550; 83605; 83690; 83735; 84100; 85025; 85045; 85610; 85730; 86317; 86704; 86850; 86900; 86901; 86920; 87040; 87070; 87075; 87077; 87186; 87205; 87340; 87522; 93005; 93010; 96361; 96374; 96375; 99291; C1713; C1752; J1642; J1644; J1720; J1815; J2250; J2270; J2405; J3010; J3370; J3490; J7030; J7060; J7120; J7512; P9016; Q4081

== ENCOUNTER → 2019-02-18 | Outpatient (CLI) | payer MEDICAID | LOC: OD 07:41 | PROVIDERS: ATTEND Physician Assistant Medical | DX: I95.89 Other hypotension (principal) | CPT/HCPCS: 36415; 82533 ==

== ENCOUNTER → 2019-04-04 | Outpatient (CLI) | payer MEDICAID ==
--- NOTE | 2019-04-04 12:55 | RADIOLOGY REPORT (SQ) ---
EXAM DESCRIPTION: CT ABDOMEN NO ORAL OR IV COMPLETED DATE/TIME: 04/04/2019 8:26 am REASON FOR STUDY: RIGHT RENAL MASS (N28.89) N28.89 OTHER SPECIFIED DISORDERS OF KIDNEY AND URETER COMPARISON: 10/12/2018 TECHNIQUE: CT scan of the abdomen performed without intravenous contrast and without oral contrast. Images reviewed with lung, soft tissue, and bone windows. Reconstructed coronal and sagittal MPR im ages reviewed. All images stored on PACS. All CT scanners at this facility use dose modulation, iterative reconstruction, and/or weight based d osing when appropriate to reduce radiation dose to as low as reasonably achievable (ALARA). [facility]: Dose Right [facility]: CareDose [facility]: Dose Right [facility]: Teradose 4D [facility]: [employer] RADIATION DOSE: CT Rad equipment meets quality standard of care and radiation dose reduction techniq ues were employed. CTDIvol: 6.7 mGy. DLP: 236 mGy-cm.mGy. LIMITATIONS: None. FINDINGS: LOWER CHEST: No acute findings. Scattered coronary atherosclerosis. NONCONTRASTED LIVER, SPLEEN, ADRENALS: Evaluation limited by lack of IV contrast. Unchanged low-dens ity 15 mm left adrenal nodule (-3 Hounsfield units) compatible with adrenal adenoma. Stable addition al fat containing lesion along the superior left adrenal gland, likely adrenal myelolipoma. No addit ional identified significant masses. PANCREAS: No masses. No peripancreatic inflammatory changes. GALLBLADDER: Decompressed. Punctate gallstone versus calcification. RIGHT KIDNEY AND URETER: No suspicious masses. Assessment limited by lack of IV contrast. No signif icant calcifications. No hydronephrosis or hydroureter. LEFT KIDNEY AND URETER: Stable size of the mixed density left upper pole renal lesion measuring 12 mm . Decreased conspicuity of previously seen nodular thickening at the ureteral vesicular junction. Punctate nonobstructing lower pole stone. No hydronephrosis or hydroureter. AORTA AND RETROPERITONEUM: Aortoiliac atherosclerosis without aneurysm. No retroperitoneal adenopath y, mass or hemorrhage. BOWEL AND PERITONEAL CAVITY: No evidence of intestinal obstruction. Bowel containing right lower bk drant anterior abdominal wall hernia, partially evaluated and similar to prior. APPENDIX: Not visualized. ABDOMINAL WALL: Right anterior abdominal wall fat and bowel containing hernia with a 2.9 cm aperture. BONES: No acute bony abnormality. No discrete lytic or blastic osseous lesions. OTHER: No other significant finding. IMPRESSION: 1. Stable left upper pole solid renal lesion suspicious for neoplasm. Decreased consp icuity of previously seen urothelial nodule at the ureteral pelvic junction. No new lymphadenopathy. 2. Stable additional chronic findings as above. TECHNICAL DOCUMENTATION: JOB ID: [id number] Quality ID # [id number]: Final reports with documentation of one or more dose reduction techniques (e.g., Au tomated exposure control, adjustment of the mA and/or kV according to patient size, use of iterative reconstruction technique) 2010 [employer]- All Rights Reserved Reading location - IP/workstation name: [email or web address]
== END ==
LOC: RAD 07:56
PROVIDERS: ATTEND Nurse Practitioner Family
DX: N28.89 Other specified disorders of kidney and ureter (principal); I25.10 Atherosclerotic heart disease of native coronary artery without angina pectoris; N20.0 Calculus of kidney
CPT/HCPCS: 74150

== ENCOUNTER 2020-01-24 07:25 | Emergency (ER) | payer MEDICAID ==
--- NOTE | 2020-01-24 11:31 | ER Document Report ---
ED General - General Chief Complaint: Fall Stated Complaint: BACK PAIN Primary Care Provider: JALYN MORALES MD [Primary Care Provider] - Follow up as needed Mode of Arrival: Medic Information source: Patient Notes: Patient is a 54-year-old female presenting to the emergency department chief complaint of accidental fall and back strain. Patient states is been about 2 to 3 days and the back pain is getting worse. Patient states she is a Monday dialysis patient she also has an ileostomy. She states that she has a prior history of a bad back and the other day when taking out the trash she states that she slipped and reinjured her low back she denies cough or cold no nausea vomiting diarrhea or any other complaints at this time out of her normal. TRAVEL OUTSIDE OF THE [place] IN LAST 30 DAYS: No - HPI Onset: Other - 3 days Onset/Duration: Sudden, Persistent, Worse Quality of pain: Pressure, Throbbing Severity: Moderate Pain Level: 3 Associated symptoms: denies: Productive cough, Diarrhea, Nausea, Vomiting, Shortness of breath, Sweating Exacerbated by: Standing, Movement, Walking, Coughing, Deep breathing Relieved by: Denies Similar symptoms previously: Yes Recently seen / treated by doctor: No - Related Data Allergies/Adverse Reactions: Penicillins Allergy (Unknown, Verified 01/24/20 08:04) tetracycline [Tetracycline] Allergy (Unknown, Verified 01/24/20 08:04) Iodinated Contrast Media [IV Dye, Iodine Containing] Allergy (Verified 01/24/20 08:04) Liraglutide [From Victoza] Allergy (Verified 01/24/20 08:04) Home Medications: dialysis. back pain. low blood pressure. dm. chrons Past Medical History - General Information source: Patient - Social History Smoking Status: Current Every Day Smoker Cigarette use (# per day): Yes Chew tobacco use (# tins/day): No Smoking Education Provided: Yes Frequency of alcohol use: Occasional Drug Abuse: None Lives with: Family Family History: Reviewed & Not Pertinent, Hypertension Patient has suicidal ideation: No Patient has homicidal ideation: No - Past Medical History Cardiac Medical History: Reports: Hx Hypercholesterolemia, Hx Hypertension Endocrine Medical History: Reports: Hx Diabetes Mellitus Type 2 - no meds Renal/ Medical History: Reports: Hx Hemodialysis, Hx Renal Insufficiency. Denies: Hx Peritoneal Dialysis GI Medical History: Reports: Hx Crohn's Disease Musculoskeletal Medical History: Reports Hx Arthritis - RA, ankylosing spondylitis Past Surgical History: Reports: Hx Bowel Surgery - colostomy, iliostomy, Hx Section, Hx Cholecystectomy, Hx Herniorrhaphy, Hx Vascular Surgery - Immunizations Hx Diphtheria, Pertussis, Tetanus Vaccination: Yes Hx Pneumococcal Vaccination: 03/05/13 Review of Systems - Review of Systems Constitutional: No symptoms reported EENT: No symptoms reported Cardiovascular: No symptoms reported Respiratory: No symptoms reported Gastrointestinal: No symptoms reported Genitourinary: No symptoms reported Female Genitourinary: No symptoms reported Musculoskeletal: See HPI Skin: No symptoms reported Hematologic/Lymphatic: No symptoms reported Neurological/Psychological: No symptoms reported Physical Exam - Vital signs Vitals: Temp 98.0 F 01/24/20 08:04 - Notes Notes: PHYSICAL EXAMINATION: GENERAL: Well-appearing, well-nourished and in no acute distress. HEAD: Atraumatic, normocephalic. EYES: Pupils equal round and reactive to light, extraocular movements intact, sclera anicteric, conjunctiva are normal. ENT: nares patent, oropharynx clear without exudates. Moist mucous membranes. NECK: Normal range of motion, supple without lymphadenopathy, no appreciable JVD LUNGS: Lungs clear to auscultation bilaterally and equal. No wheezes rales or rhonchi. HEART: Regular rate and rhythm without murmurs ABDOMEN: Soft, nontender, normal bowel sounds. No guarding, no rebound. No masses appreciated. Ileostomy in place EXTREMITIES: Active full range of motion, no pitting or edema. No cyanosis. 2+ pulses x4 however patient does have positive straight leg raise bilaterally. Patient does have low back pain to the bilateral sides between thoracic and lumbar region. No cauda equina symptoms. NEUROLOGICAL: No focal neurological deficits. Moves all extremities spont aneously and on command. SKIN: Warm, Dry, and intact. Normal turgor, no rashes or lesions noted. Course - Re-evaluation Re-evalutation: 01/24/20 12:42 I was contacted by radiology services who state that the patient does have a compression fracture at L4. They state that this is new compared to CT at 2019. Their recommendation is CT of the lumbar spine to look for acuity. 01/24/20 14:21 CT scan of the lumbar spine does show a compression/burst fracture of L4. Patient will be discharged home given prescription for pain medication instructed to follow-up with her primary care provider for further direction as to possible kyphoplasty locally. - Vital Signs Vital signs: Temp Pulse Resp BP Pulse Ox 98.0 F 63 20 131/71 H 99 01/24/20 09:27 01/24/20 09:27 01/24/20 09:27 01/24/20 09:27 01/24/20 09:27 - Diagnostic Test Radiology reviewed: Reports reviewed Discharge - Discharge Clinical Impression: Accidental fall Qualifiers: Encounter type: initial encounter Qualified Code(s): W19.XXXA - Unspecified fall, initial encounter Compression fracture of C4 vertebra Qualifiers: Encounter type: initial encounter Qualified Code(s): S12.390A - Other displaced fracture of fourth cervical vertebra, initial encounter for closed fracture Condition: Stable Disposition: HOME, SELF-CARE Instructions: Low Back Pain ([facility]), Oral Narcotic Medication ([facility]) Prescriptions: Hydrocodone/Acetaminophen [Vicodin Hp 10-300 mg Tablet] 1 tab PO Q6HP PRN #14 tablet PRN Reason: Referrals: JALYN MORALES MD [Primary Care Provider] - Follow up as needed
[2020-01-24] MEDS ORDERED: ONDANSETRON 4 MG TAB.RAPDIS PO ONE (11:32)
--- NOTE | 2020-01-24 12:37 | RADIOLOGY REPORT (SQ) ---
EXAM DESCRIPTION: T SPINE AP/LAT IMAGES COMPLETED DATE/TIME: 01/24/2020 12:26 pm REASON FOR STUDY: fall COMPARISON: None. NUMBER OF VIEWS: Two views. TECHNIQUE: AP and lateral radiographic images acquired of the thoracic spine. LIMITATIONS: None. FINDINGS: MINERALIZATION: Decreased. ALIGNMENT: Normal. No scoliosis. VERTEBRAE: No fracture or bone lesion. Maintained height, normal segmentation. DISCS: Multilevel disc height loss and thoracic spondylosis. HARDWARE: Left approach central venous catheter tip terminates at innominate/SVC junction. MEDIASTINUM AND SOFT TISSUES: Normal heart size and aortic contour. No soft tissue abnormality. VISUALIZED LUNG RAMOS: Clear. OTHER: No other significant finding. IMPRESSION: 1. No definite compression fracture identified of the thoracic spine. 2. Multilevel thoracic spondylosis. TECHNICAL DOCUMENTATION: JOB ID: [id number] 2010 [employer]- All Rights Reserved Reading location - IP/workstation name: [email or web address]
[2020-01-24] MEDS ORDERED: OXYCODONE-ACETAMINOPHEN 5-325 MG TABLET PO ONE ×2 (12:41→14:51)
--- NOTE | 2020-01-24 12:44 | RADIOLOGY REPORT (SQ) ---
EXAM DESCRIPTION: L SPINE WHOLE IMAGES COMPLETED DATE/TIME: 01/24/2020 12:26 pm REASON FOR STUDY: fall COMPARISON: CT abdomen 04/04/2019 NUMBER OF VIEWS: Five views including obliques. TECHNIQUE: AP, lateral, oblique, and sacral radiographic images acquired of the lumbar spine. LIMITATIONS: None. FINDINGS: MINERALIZATION: Decreased. SEGMENTATION: 5 [id number] lumbar vertebral bodies. ALIGNMENT: Grossly normal alignment. VERTEBRAE: Chronic compression deformities and endplate change at L2-3. There is a new superior endp late compression deformity of the L4 vertebral body with less than 50% height loss compared to CT festus ed 04/04/2019. No definitive retropulsion identified. DISCS: Mild multilevel endplate change with disc height loss greatest at L1-2 and L2-3. POSTERIOR ELEMENTS: Multilevel facet arthropathy throughout the lumbar spine. HARDWARE: None in the spine. Surgical clips overlie upper abdomen and pelvis. PARASPINAL SOFT TISSUES: Vascular calcifications. PELVIS: Intact as visualized. No fractures or worrisome bone lesions. SI joints intact. OTHER: No other significant finding. IMPRESSION: 1. New compression deformity of the L4 vertebral body compared to CT dated 04/04/2019. MRI or bone scan could be utilized to confirm acuity. This would likely be amenable to kyphoplasty if indicated. 2. Stable chronic compression deformity and endplate change at L2-3. Findings reported to Dr. Hough at 1237 hours on 01/23/2023 TECHNICAL DOCUMENTATION: JOB ID: [id number] 2010 [employer]- All Rights Reserved Reading location - IP/workstation name: [email or web address]
--- NOTE | 2020-01-24 13:31 | RADIOLOGY REPORT (SQ) ---
EXAM DESCRIPTION: CT LUMBAR SPINE WITHOUT IMAGES COMPLETED DATE/TIME: 01/24/2020 1:10 pm REASON FOR STUDY: compression fx L4 COMPARISON: Same day radiograph, CT 10/13/2019 TECHNIQUE: Axial images acquired through the lumbar spine without intravenous contrast. Images revi ewed with lung, soft tissue and bone windows. Reconstructed coronal and sagittal MPR images reviewed . All images stored on PACS. All CT scanners at this facility use dose modulation, iterative reconstruction, and/or weight based d osing when appropriate to reduce radiation dose to as low as reasonably achievable (ALARA). [facility]: Dose Right [facility]: CareDose [facility]: Dose Right [facility]: Teradose 4D [facility]: [employer] RADIATION DOSE: mGy. LIMITATIONS: None. FINDINGS: SEGMENTATION: 5 [id number]-heo-ylmfell lumbar vertebral bodies. ALIGNMENT: Straightening of the normal lumbar lordosis. VERTEBRAL BODIES: Complex burst type fracture of the L4 vertebral body involving the anterior and mid dle columns and extending into the superior and inferior endplates. There is greater than 50% height loss centrally with multiple fracture fragments. Mild retropulsion with mild to moderate canal sten osis. Chronic L3 compression fracture appears similar to prior. Additional degenerative changes and Schmorl's node at L1-2 appears stable. DISCS: Significant circumferential disc bulge at L2-3 with moderate canal stenosis and narrowing of t he bilateral lateral recesses. There is at least moderate bilateral neural foraminal narrowing secon pepito to disc disease. Additional smaller posterior disc bulge at L3-4 with mild bilateral neural for aminal narrowing. PEDICLES, TRANSVERSE PROCESSES: No fractures. No dislocation. No acute findings. FACETS, POSTERIOR ELEMENTS: No fractures. No dislocation. HARDWARE: None in the spine. VISUALIZED RIBS: No fractures. SOFT TISSUES: Aortoiliac atherosclerosis. Left adrenal adenoma measuring 16 mm, stable. OTHER: No other significant finding. IMPRESSION: 1. Complex burst type fracture of the L4 vertebral body involving the anterior and midd le columns with extension into the superior and inferior endplates. There is greater than 50% height loss centrally. 2. Stable additional chronic compression fractures of L3 compared to 10/12/18. 3. Multilevel degenerative change. Prominent disc bulge at L2-3 with moderate canal stenosis and la teral recess narrowing. TECHNICAL DOCUMENTATION: JOB ID: [id number] Quality ID # [id number]: Final reports with documentation of one or more dose reduction techniques (e.g., Au tomated exposure control, adjustment of the mA and/or kV according to patient size, use of iterative reconstruction technique) 2010 [employer]- All Rights Reserved Reading location - IP/workstation name: [email or web address]
[2020-01-24] MEDS ORDERED: DIAZEPAM 2 MG TABLET PO ONE (14:51)
[2020-01-24 15:01] VITALS: BP 127/59
== END 2020-01-24 15:03 | disposition home or self-care (01) ==
LOC: ER 07:25
DX: S12.390A Other displaced fracture of fourth cervical vertebra, initial encounter for closed fracture (principal); M54.9 Dorsalgia, unspecified; M54.5 Low back pain; W01.0XXA Fall on same level from slipping, tripping and stumbling without subsequent striking against object, initial encounter; Z93.2 Ileostomy status; F17.210 Nicotine dependence, cigarettes, uncomplicated; I10 Essential (primary) hypertension; Z88.8 Allergy status to other drugs, medicaments and biological substances; Z88.0 Allergy status to penicillin; Z79.899 Other long term (current) drug therapy; E11.9 Type 2 diabetes mellitus without complications
CPT/HCPCS: 99284; 72110; 72070; 72131; J3490; S0119

== ENCOUNTER 2020-01-27 17:33 | Emergency (ER) | payer MEDICAID ==
--- NOTE | 2020-01-27 18:04 | ER Document Report ---
ED Medical Screen (RME) - General Chief Complaint: Back Pain Stated Complaint: BACK PAIN Time Seen by Provider: 01/27/20 17:54 Primary Care Provider: JALYN MORALES MD [Primary Care Provider] - Follow up as needed Mode of Arrival: Medic Information source: Patient Notes: 54-year-old female presents to ED after she fell again this afternoon. She states she has L3-L4 compression fractures and today she was trying to go from the bedroom to the recliner when she fell. She states she does have chronic pain in her back and she is supposed to be getting up with [facility] at some point but she has to go through her primary care first. She states she was seen on Monday and was given some pain medicines and at that time they did x-rays and CAT scans. She states she does have osteoporosis chronic back pain and ileostomy due to Crohn's diabetes type 2 she gets dialysis done on Tuesdays and Saturdays but was not able to go on Monday due to her not being able to get out of the house chronic back pain and rheumatoid arthritis. She states she does smoke a pack a day drinks occasionally and does not use any illicit drugs. States she does live with her son who is disabled. I have greeted and performed a rapid initial assessment of this patient. A comprehensive ED assessment and evaluation of the patient, analysis of test results and completion of medical decision making process will be conducted by an additional ED providers. TRAVEL OUTSIDE OF THE [place] IN LAST 30 DAYS: No - Related Data Allergies/Adverse Reactions: Penicillins Allergy (Unknown, Verified 01/24/20 08:04) tetracycline [Tetracycline] Allergy (Unknown, Verified 01/24/20 08:04) Iodinated Contrast Media [IV Dye, Iodine Containing] Allergy (Verified 01/24/20 08:04) Liraglutide [From Victoza] Allergy (Verified 01/24/20 08:04) Past Medical History - Past Medical History Cardiac Medical History: Reports: Hx Hypercholesterolemia, Hx Hypertension Endocrine Medical History: Reports: Hx Diabetes Mellitus Type 2 - no meds Renal/ Medical History: Reports: Hx Hemodialysis, Hx Renal Insufficiency. Denies: Hx Peritoneal Dialysis GI Medical History: Reports: Hx Crohn's Disease Musculoskeltal Medical History: Reports Hx Arthritis - RA, ankylosing spondylitis Past Surgical History: Reports: Hx Bowel Surgery - colostomy, iliostomy, Hx Section, Hx Cholecystectomy, Hx Herniorrhaphy, Hx Vascular Surgery - Immunizations Hx Diphtheria, Pertussis, Tetanus Vaccination: Yes Physical Exam - Vital signs Vitals: Temp Pulse Resp BP Pulse Ox 98.9 F 71 18 140/62 H 98 01/27/20 17:56 01/27/20 17:56 01/27/20 17:56 01/27/20 17:56 01/27/20 17:56 Course - Vital Signs Vital signs: Temp Pulse Resp BP Pulse Ox 98.9 F 71 18 140/62 H 98 01/27/20 17:56 01/27/20 17:56 01/27/20 17:56 01/27/20 17:56 01/27/20 17:56 Doctor's Discharge - Discharge Referrals: JALYN MORALES MD [Primary Care Provider] - Follow up as needed
[2020-01-27] MEDS ORDERED: HYDROCODONE/ACETAMINOPHEN 5-325 MG TABLET PO ONE (18:06)
--- NOTE | 2020-01-27 18:49 | RADIOLOGY REPORT (SQ) ---
EXAM DESCRIPTION: FEMUR LEFT IMAGES COMPLETED DATE/TIME: 01/27/2020 6:37 pm REASON FOR STUDY: Pain since last week fell again today COMPARISON: None. NUMBER OF VIEWS: Two views. TECHNIQUE: Two radiographic images acquired of the left femur to include hip and knee in at least on e projection. LIMITATIONS: None. FINDINGS: MINERALIZATION: Normal. BONES: No acute fracture. No worrisome bone lesions. SOFT TISSUES: No obvious swelling or foreign body. OTHER: No other significant finding. IMPRESSION: NEGATIVE STUDY OF THE LEFT FEMUR. NO RADIOGRAPHIC EVIDENCE OF ACUTE INJURY. TECHNICAL DOCUMENTATION: JOB ID: [id number] 2010 [employer]- All Rights Reserved Reading location - IP/workstation name: [email or web address]
--- NOTE | 2020-01-27 18:51 | RADIOLOGY REPORT (SQ) ---
EXAM DESCRIPTION: L SPINE WHOLE IMAGES COMPLETED DATE/TIME: 01/27/2020 6:37 pm REASON FOR STUDY: Fell again today COMPARISON: None. NUMBER OF VIEWS: Five views including obliques. TECHNIQUE: AP, lateral, oblique, and sacral radiographic images acquired of the lumbar spine. LIMITATIONS: None. FINDINGS: MINERALIZATION: Normal. SEGMENTATION: Normal. No transitional anatomy. ALIGNMENT: Normal. VERTEBRAE: Compression changes are seen at L2, L3, and L4. These do not appear to be acute. DISCS: Disc spaces are narrowed from L1-L3. Marginal osteophytes are present. POSTERIOR ELEMENTS: Hypertrophic facet changes at L5-S1. HARDWARE: None in the spine. PARASPINAL SOFT TISSUES: Normal. PELVIS: Intact as visualized. No fractures or worrisome bone lesions. SI joints intact. OTHER: No other significant finding. IMPRESSION: Multilevel compression changes that do not appear to be acute. Degenerative disc diseas e, spondylosis, and facet arthropathy. TECHNICAL DOCUMENTATION: JOB ID: [id number] 2010 [employer]- All Rights Reserved Reading location - IP/workstation name: [email or web address]
--- NOTE | 2020-01-28 00:04 | ER Document Report ---
ED General Pain - General Chief Complaint: Back Pain Stated Complaint: BACK PAIN Time Seen by Provider: 01/27/20 17:54 Primary Care Provider: JALYN MORALES MD [Primary Care Provider] - Follow up as needed Mode of Arrival: Medic TRAVEL OUTSIDE OF THE [place] IN LAST 30 DAYS: No - HPI Notes: 54-year-old female presents with back pain. Patient was seen in the emergency department on 01/23 for low back pain following a fall from standing. She was diagnosed with an L4 burst fracture via lumbar CT, she was discharged with pain medication and PCP follow-up. Patient states that the pain has been worsening. She is now having numbness in her left leg. She states that she can barely touch her left foot to the ground to bear weight, essentially she cannot ambulate on the leg. Due to the pain and leg numbness she had another fall from standing today. Pain is worse when she is upright, better when she is lying flat. She has an ileostomy which has been having normal output. She states that she might have some urinary urgency. Due to the pain she has not been able to go to dialysis on Monday, TThS, due tomorrow. - Related Data Allergies/Adverse Reactions: Penicillins Allergy (Unknown, Verified 01/24/20 08:04) tetracycline [Tetracycline] Allergy (Unknown, Verified 01/24/20 08:04) Iodinated Contrast Media [IV Dye, Iodine Containing] Allergy (Verified 01/24/20 08:04) Liraglutide [From Victoza] Allergy (Verified 01/24/20 08:04) Past Medical History - General Information source: Patient - Social History Smoking Status: Current Every Day Smoker Drug Abuse: None Family History: Reviewed & Not Pertinent, Hypertension Patient has homicidal ideation: No - Past Medical History Cardiac Medical History: Reports: Hx Hypercholesterolemia, Hx Hypertension Endocrine Medical History: Reports: Hx Diabetes Mellitus Type 2 - no meds Renal/ Medical History: Reports: Hx Hemodialysis, Hx Renal Insufficiency. Denies: Hx Peritoneal Dialysis GI Medical History: Reports: Hx Crohn's Disease Musculoskeletal Medical History: Reports Hx Arthritis - RA, ankylosing spondylitis Past Surgical History: Reports: Hx Bowel Surgery - colostomy, iliostomy, Hx Ce sarean Section, Hx Cholecystectomy, Hx Herniorrhaphy, Hx Vascular Surgery - Immunizations Hx Diphtheria, Pertussis, Tetanus Vaccination: Yes Hx Pneumococcal Vaccination: 03/05/13 Review of Systems - Review of Systems Constitutional: denies: Fever EENT: No symptoms reported Cardiovascular: denies: Chest pain Respiratory: denies: Short of breath Gastrointestinal: denies: Abdominal pain Genitourinary: Urgency Female Genitourinary: No symptoms reported Musculoskeletal: Back pain Skin: No symptoms reported Hematologic/Lymphatic: No symptoms reported Neurological/Psychological: Weakness, Numbness Physical Exam - Vital signs Vitals: Temp Pulse Resp BP Pulse Ox 98.9 F 71 18 140/62 H 98 01/27/20 17:56 01/27/20 17:56 01/27/20 17:56 01/27/20 17:56 01/27/20 17:56 - General General appearance: Appears well, Alert - HEENT Head: Normocephalic, Atraumatic Extraocular movements intact: Yes Pupils: PERRL - Respiratory Breath sounds: Normal - Cardiovascular Rhythm: Regular Heart sounds: Normal auscultation Normal capillary refill: Yes - Abdominal Tenderness: Nontender Notes: Ileostomy present, stool in bag - Rectal Notes: Cannot perform rectal exam as it is surgically absent - Back Back: Vertebra tenderness - Midline lumbar - Extremities General lower extremity: Normal inspection. No: Edema - Neurological Cognition: Normal Orientation: AAOx4 Notes: Patient is able to push down against resistance with both extremities. She has intact sensation to the left leg however reports decreased compared to right. Patellar reflex is 1+ in left leg, 2+ in right leg. No saddle anesthesia. - Psychological Associated symptoms: Normal affect - Skin Skin Temperature: Warm Course - Re-evaluation Re-evalutation: 01/28/20 00:37 54-year-old female presents with worsening of back pain following a fall, initial injury occurred on 01/22 and was seen in ED 01/23. Inability to ambulate, essentially is toe-touch at best to left leg, with reported numbness. On exam she does have midline tenderness. She has intact sensation to left leg though reports it is altered. She has a discrepancy in her patellar reflexes. Reviewed CT lumbar spine from 01/23 along with report, per radiology she has a complex burst type fracture of L4 vertebral body involving the anterior and middle columns with extension into the superior and inferior endplates. There is greater than 50% height loss centrally with multiple fracture fragments. Mild retropulsion with mild to moderate canal stenosis. Concern for progression of this unstable fracture. MRI currently not available, therefore will send for repeat lumbar CT. Additionally she has missed dialysis on Monday, will check electrolytes. She does not appear to be overtly fluid overloaded, lungs are clear, no oxygen requirement. 01/28/20 01:58 I have reviewed the new lumbar CT, it appears that there has been a progressive worsening. Final read is pending. I have called the [facility] transfer center to get in touch with neurosurgery. 01/28/20 02:14 CT report is now available, per radiology there is been an increase in the retropulsed fragments, likely causing mass-effect on the left-sided nerve root. Correlate with physical exam. 01/28/20 02:24 Labs reviewed. There is a leukocytosis present, however this is essentially the same value as in October 2018, it appears she does have chronically elevated white count. Possibly reactionary. No acute anemia. Potassium is within normal limits, creatinine is elevated as expected given ESRD status 01/28/20 02:59 Case has been discussed with nsgy at [facility], she has been accepted in transfer to nsgy service under Dr. Vuong. Pt updated on transfer acceptance. - Vital Signs Vital signs: Temp Pulse Resp BP Pulse Ox 98.9 F 71 18 140/62 H 98 01/27/20 17:56 01/27/20 17:56 01/27/20 17:56 01/27/20 17:56 01/27/20 17:56 - Laboratory Result Diagrams: 01/28/20 00:42 01/28/20 00:42 Laboratory results interpreted by me: 01/28/20 01/28/20 01/28/20 00:42 00:42 01:55 WBC 19.2 H Lymph % (Auto) 11.5 L Absolute Neuts (auto) 15.2 H Absolute Monos (auto) 1.6 H Seg Neutrophils % 79.6 H Sodium 135.2 L Carbon Dioxide 19 L BUN 53 H Creatinine 4.92 H Est GFR ( Amer) 11 L Est GFR (MDRD) Non-Af 9 L Glucose 149 H Urine Protein 100 H Ur Leukocyte Esterase MODERATE H - Diagnostic Test Radiology reviewed: Image reviewed, Reports reviewed Discharge - Discharge Clinical Impression: Closed burst fracture of lumbar vertebra Qualifiers: Encounter type: sequela Qualified Code(s): S32.001S - Stable burst fracture of unspecified lumbar vertebra, sequela Disposition: [facility] Referrals: JALYN MORALES MD [Primary Care Provider] - Follow up as needed
[2020-01-28] MEDS ORDERED: MORPHINE SULFATE 10 MG/ML INJ IV ONE (00:22)
[2020-01-28 01:07] LABS: ABSOLUTE BASOPHILS # (AUTO) 0.1 10^3/uL (0.0-0.2); ABSOLUTE EOSINOPHILS # (AUTO) 0.1 10^3/uL (0.0-0.6); ABSOLUTE LYMPHOCYTES (AUTO) 2.2 10^3/uL (0.5-4.7); ABSOLUTE MONOCYTES (AUTO) 1.6 10^3/uL (0.1-1.4); ABSOLUTE NEUT (AUTO) 15.2 10^3/uL (1.7-8.2); BASOPHILS % (AUTO) 0.3 % (0-2); EOSINOPHILS % (AUTO) 0.4 % (0-6); HEMATOCRIT 39.7 % (36.0-47.0); LYMPHOCYTES % (AUTO) 11.5 % (13-45); MEAN CORPUSCULAR HEMOGLOBIN 31.6 pg (27.0-33.4); MEAN CORPUSCULAR HGB CONC 32.8 g/dL (32.0-36.0); MEAN CORPUSCULAR VOLUME 96 fl (80-97); MONOCYTES % (AUTO) 8.2 % (3-13); PLATELET COUNT 202 10^3/uL (150-450); RED BLOOD COUNT 4.11 10^6/uL (3.72-5.28); RED CELL DISTRIBUTION WIDTH 13.4 % (11.5-14.0); SEGMENTED NEUTROPHILS % (AUTO) 79.6 % (42-78); TOTAL CELLS COUNTED % (AUTO) 100 %; WHITE BLOOD COUNT 19.2 10^3/uL (4.0-10.5)
[2020-01-28 01:15] LABS: ANION GAP 14 (5-19); BLOOD UREA NITROGEN 53 mg/dL (7-20); CALCIUM 9.6 mg/dL (8.4-10.2); CARBON DIOXIDE 19 mmol/L (22-30); CHLORIDE 102 mmol/L (98-107); GLUCOSE 149 mg/dL (75-110)
[2020-01-28 01:17] LABS: POTASSIUM 3.9 mmol/L (3.6-5.0)
--- NOTE | 2020-01-28 02:05 | RADIOLOGY REPORT (SQ) ---
EXAM DESCRIPTION: CT lumbar spine without contrast CLINICAL HISTORY: 54 years Female, L4 burst fracture, L leg numbness COMPARISON: CT lumbar spine 01/24/2020 TECHNIQUE: Axial images of the lumbar spine were performed, without the use of intravenous contrast, with sagittal and coronal reformatted images. This exam was performed according to our departmental dose-optimization program which includes use of Automated Exposure Control, adjustment of the mA and/or kV according to patient size and/or use of iterative reconstruction technique. FINDINGS: As seen on the prior study, there is comminuted fracture involving L4. The L4 retropulsed fragment appears to have extended slightly further into the spinal canal, as compared with the prior CT scan, now causing severe spinal stenosis. There are old compression fractures involving L2 and L3. There are degenerative changes throughout the lumbar spine. IMPRESSION: The L4 retropulsed fragment appears to have extended slightly further into the spinal canal, since the prior CT scan, causing severe spinal stenosis. This could potentially cause mass effect on a left-sided nerve root.
[2020-01-28 02:23] LABS: APPEARANCE,URINE CLOUDY; BILIRUBIN,URINE NEGATIVE (NEGATIVE); COLOR,URINE YELLOW; GLUCOSE, URINE NEGATIVE (NEGATIVE); KETONES,URINE NEGATIVE (NEGATIVE); LEUKOCYTE ESTERASE,URINE MODERATE (NEGATIVE); NITRITE,URINE NEGATIVE (NEGATIVE); PROTEIN,URINE 100 mg/dL (NEGATIVE); URINE SPECIFIC GRAVITY 1.021; UROBILINOGEN,URINE NEGATIVE mg/dL (<2.0)
[2020-01-28] MEDS ORDERED: MORPHINE SULFATE 10 MG/ML INJ IV PRN (03:04)
[2020-01-28 03:42] VITALS: BP 121/58
== END 2020-01-28 04:28 | disposition short-term general hospital (02) ==
LOC: ER 17:33
DX: S32.001S Stable burst fracture of unspecified lumbar vertebra, sequela (principal); M54.9 Dorsalgia, unspecified; M54.5 Low back pain; R20.0 Anesthesia of skin; R39.15 Urgency of urination; W19.XXXS Unspecified fall, sequela; Z93.2 Ileostomy status; Z88.0 Allergy status to penicillin; Z88.8 Allergy status to other drugs, medicaments and biological substances; F17.200 Nicotine dependence, unspecified, uncomplicated; I10 Essential (primary) hypertension; E11.9 Type 2 diabetes mellitus without complications
CPT/HCPCS: 96376; 99285; 96374; 36415; 85025; 80048; 81001; 73552; 72110; 72131; J2270

== ENCOUNTER 2020-03-23 02:20 | Emergency (ER) | payer MEDICAID ==
[2020-03-23] MEDS ORDERED: MORPHINE SULFATE 10 MG/ML INJ IM ONE (03:12)
[2020-03-23] MEDS ORDERED: PROMETHAZINE HCL INJ 25 MG/1 ML VIAL IM ONE (03:12)
[2020-03-23 03:59] LABS: HEMATOCRIT 42.4 % (36.0-47.0); HEMOGLOBIN 13.7 g/dL (12.0-15.5); MEAN CORPUSCULAR HEMOGLOBIN 29.9 pg (27.0-33.4); MEAN CORPUSCULAR HGB CONC 32.3 g/dL (32.0-36.0); MEAN CORPUSCULAR VOLUME 93 fl (80-97); RED BLOOD COUNT 4.58 10^6/uL (3.72-5.28); RED CELL DISTRIBUTION WIDTH 14.4 % (11.5-14.0)
[2020-03-23 04:08] LABS: ALBUMIN 3.6 g/dL (3.5-5.0); ALKALINE PHOSPHATASE 223 U/L (38-126); ASPARTATE AMINO TRANSFERASE 20 U/L (14-36); BILIRUBIN,DIRECT 0.7 mg/dL (0.0-0.4); BILIRUBIN,TOTAL 0.7 mg/dL (0.2-1.3); BLOOD UREA NITROGEN 74 mg/dL (7-20); CARBON DIOXIDE 16 mmol/L (22-30); CHLORIDE 96 mmol/L (98-107); GLUCOSE 85 mg/dL (75-110); POTASSIUM 5.6 mmol/L (3.6-5.0); TOTAL PROTEIN 6.9 g/dL (6.3-8.2)
[2020-03-23 04:09] LABS: ANION GAP 20 (5-19)
--- NOTE | 2020-03-23 04:49 | ER Document Report ---
ED GI/ - General Chief Complaint: Nausea Stated Complaint: NAUSEA AND INCREASEDBACKPAIN RIGHT ARM PAIN Time Seen by Provider: 03/23/20 03:03 Primary Care Provider: JONATHAN CARRENO MD [ACTIVE STAFF] - Follow up as needed Mode of Arrival: Medic Information source: Patient Notes: 54-year-old female patient presenting to the emergency department chief complaint of nausea. Patient reports she has chronic nausea, she states she took her usual Zofran however it did not help. She is a dialysis patient, she states she missed dialysis on Monday which was 2 days ago. She reports she is planning to go on Monday. She denies any fever, chills, vomiting or diarrhea. She is also complaining of chronic back pain and pain to her right upper arm where she recently had a dialysis access placed. TRAVEL OUTSIDE OF THE [place] IN LAST 30 DAYS: No - Related Data Allergies/Adverse Reactions: Penicillins Allergy (Unknown, Verified 01/24/20 08:04) tetracycline [Tetracycline] Allergy (Unknown, Verified 01/24/20 08:04) Iodinated Contrast Media [IV Dye, Iodine Containing] Allergy (Verified 01/24/20 08:04) Liraglutide [From Victoza] Allergy (Verified 01/24/20 08:04) Home Medications: Zofran, Oxycodone, Omeprazole, Methocarbamol Past Medical History - General Information source: Patient - Social History Smoking Status: Current Every Day Smoker Family History: Reviewed & Not Pertinent, Hypertension Patient has homicidal ideation: No - Past Medical History Cardiac Medical History: Reports: Hx Hypercholesterolemia, Hx Hypertension Endocrine Medical History: Reports: Hx Diabetes Mellitus Type 2 - no meds Renal/ Medical History: Reports: Hx Hemodialysis, Hx Renal Insufficiency. Denies: Hx Peritoneal Dialysis GI Medical History: Reports: Hx Crohn's Disease Musculoskeletal Medical History: Reports Hx Arthritis - RA, ankylosing spondylitis Past Surgical History: Reports: Hx Bowel Surgery - colostomy, iliostomy, Hx Section, Hx Cholecystectomy, Hx Herniorrhaphy, Hx Vascular Surgery - Immunizations Hx Diphtheria, Pertussis, Tetanus Vaccination: Yes Hx Pneumococcal Vaccination: 03/05/13 Review of Systems - Review of Systems Gastrointestinal: Nausea Musculoskeletal: Back pain, Other - R ARM PAIN -: Yes All other systems reviewed and negative Physical Exam - Vital signs Vitals: Temp Pulse Resp BP Pulse Ox 97.5 F 71 20 106/56 L 98 03/23/20 02:34 03/23/20 02:34 03/23/20 02:34 03/23/20 02:34 03/23/20 02:34 - Notes Notes: PHYSICAL EXAMINATION: GENERAL: Well-appearing, well-nourished and in no acute distress. HEAD: Atraumatic, normocephalic. EYES: Pupils equal round and reactive to light, extraocular movements intact, conjunctiva are normal. ENT: Nares patent, oropharynx clear without exudates. Moist mucous membranes. NECK: Normal range of motion, supple without lymphadenopathy LUNGS: Breath sounds clear to auscultation bilaterally and equal. No wheezes rales or rhonchi. HEART: Regular rate and rhythm without murmurs ABDOMEN: Soft, nontender, nondistended abdomen. No guarding, no rebound. No m asses appreciated. Female : deferred Musculoskeletal: Normal range of motion, no pitting or edema. No cyanosis. NEUROLOGICAL: Cranial nerves grossly intact. Normal speech. Normal sensory, motor exams PSYCH: Normal mood, normal affect. SKIN: Slight erythema noted over right upper arm, no warmth, heat, no induration or fluctuance. Course - Re-evaluation Re-evalutation: Patient reports her nausea and pain are better after administration of IM medications here in the emergency department. She does have an elevated white blood count of 39,000. Patient has had similar white blood count in the past however her baseline is usually around 15-19. She also has elevated potassium and elevated creatinine likely secondary to missing dialysis appointment. All test results were discussed with the patient. Patient declines any further work-up, states she does not want to stay here for further work-up and will refuse admission to the hospital. She does not want help rescheduling her dialysis as she states she is going on Monday. She does not want is to schedule appointment for on Monday. She states she has other medical appointments that are urgent. She will be signing AGAINST MEDICAL ADVICE paperwork. Nurse at bedside to witness AMA conversation. - Vital Signs Vital signs: Temp Pulse Resp BP Pulse Ox 97.9 F 78 20 100/56 L 96 03/23/20 06:13 03/23/20 06:13 03/23/20 06:13 03/23/20 06:13 03/23/20 06:13 - Laboratory Result Diagrams: 03/23/20 03:40 03/23/20 03:40 Laboratory results interpreted by me: 03/23/20 03/23/20 03:40 03:40 WBC 39.4 H* RDW 14.4 H Seg Neuts % (Manual) 81 H Band Neutrophils % 1 L Lymphocytes % (Manual) 7 L Myelocytes % 1 H Abs Neuts (Manual) 33.1 H Abs Monocytes (Manual) 3.5 H Sodium 132.0 L Potassium 5.6 H Chloride 96 L Carbon Dioxide 16 L Anion Gap 20 H BUN 74 H Creatinine 6.30 H Est GFR ( Amer) 8 L Est GFR (MDRD) Non-Af 7 L Direct Bilirubin 0.7 H Alkaline Phosphatase 223 H Discharge - Discharge Clinical Impression: Chronic nausea Condition: Fair Disposition: AGAINST MEDICAL ADVICE Additional Instructions: Your white blood count is significantly elevated today. Your creatinine and potassium are also elevated. I am unsure why your white blood count is elevated however it has been elevated in the past when you were admitted. This may be due to an infection. Your creatinine and potassium are elevated because you missed dialysis on Monday. I would urge you to get dialysis today instead of waiting till your regular scheduled appointment tomorrow. You have chosen to leave the emergency department AGAINST MEDICAL ADVICE instead of allowing us to help facilitate your dialysis and also investigate why your blood white blood count is significantly elevated. You have indicated to us that you understand that not staying at the hospital and allowing us to do further work-up could cause or disability. Should you change your mind and want to allow us to work you up we are happy to see you at any time. Referrals: JONATHAN CARRENO MD [ACTIVE STAFF] - Follow up as needed
[2020-03-23 04:57] LABS: WHITE BLOOD COUNT 39.4 10^3/uL (4.0-10.5)
[2020-03-23] MEDS ORDERED: PROMETHAZINE HCL 25 MG SUPP (4 SUPP/ER DISP) PR ONE (04:59)
[2020-03-23 05:00] LABS: ABSOLUTE LYMPHOCYTES# (MANUAL) 2.8 10^3/uL (0.5-4.7); ABSOLUTE MONOCYTES # (MANUAL) 3.5 10^3/uL (0.1-1.4); BAND NEUTROPHILS % (MANUAL) 1 % (3-5); BASOPHILS % (MANUAL) 0 % (0-2); EOSINOPHILS % (MANUAL) 0 % (0-6); LYMPHOCYTES % (MANUAL) 7 % (13-45); METAMYELOCYTES % (MANUAL) 1 % (0-1); MONOCYTES % (MANUAL) 9 % (3-13); SEGMENTED NEUTROPHILS % (MAN) 81 % (42-78); TOTAL CELLS COUNTED 100
[2020-03-23 05:04] LABS: ANISOCYTOSIS SLIGHT; MYELOCYTES % (MANUAL) 1 % (0); OVALOCYTES SLIGHT; POIKILOCYTOSIS SLIGHT; POLYCHROMASIA SLIGHT; SCHISTOCYTES SLIGHT; TEAR DROP CELLS SLIGHT; TOXIC GRANULATION SLIGHT; TOXIC VACUOLATION PRESENT
[2020-03-23 05:05] LABS: PLATELET CLUMPS PRESENT; PLATELET COMMENT ADEQUATE; PLATELET COUNT 195 10^3/uL (150-450)
[2020-03-23 06:14] VITALS: BP 100/56
[2020-03-23 13:30] LABS: PATH REVIEW PATHOLOGIST REVIEWED
== END 2020-03-23 06:30 | disposition left against medical advice (07) ==
LOC: ER 02:20
DX: R11.0 Nausea (principal); N28.9 Disorder of kidney and ureter, unspecified; Z91.15 Patient's noncompliance with renal dialysis; M79.621 Pain in right upper arm; L53.9 Erythematous condition, unspecified; D72.829 Elevated white blood cell count, unspecified; M54.9 Dorsalgia, unspecified; G89.29 Other chronic pain; F17.200 Nicotine dependence, unspecified, uncomplicated; I10 Essential (primary) hypertension; E11.9 Type 2 diabetes mellitus without complications; Z79.899 Other long term (current) drug therapy; Z79.891 Long term (current) use of opiate analgesic; Z88.0 Allergy status to penicillin; Z88.1 Allergy status to other antibiotic agents; Z91.041 Radiographic dye allergy status; Z88.8 Allergy status to other drugs, medicaments and biological substances; Z53.29 Procedure and treatment not carried out because of patient's decision for other reasons
CPT/HCPCS: 99284; 96372; 36415; 85025; 80053; J3490; J2270; J2550

== ENCOUNTER 2020-03-23 14:43 | Inpatient (IN) | payer MEDICAID ==
[~2020-03-23 14:43] MED LIST: EPINEPHRINE INJ 1 MG/10 ML DISP.SYRIN ONE; SODIUM BICARBONATE 8.4% INJ 50 MEQ/50 ML DISP.SYRIN ONE
[2020-03-23 15:59] LABS: HEMATOCRIT 38.3 % (36.0-47.0); HEMOGLOBIN 12.8 g/dL (12.0-15.5); MEAN CORPUSCULAR HEMOGLOBIN 30.5 pg (27.0-33.4); MEAN CORPUSCULAR HGB CONC 33.4 g/dL (32.0-36.0); MEAN CORPUSCULAR VOLUME 91 fl (80-97); PLATELET COUNT 245 10^3/uL (150-450); RED CELL DISTRIBUTION WIDTH 15.3 % (11.5-14.0); VENOUS BLOOD BASE EXCESS -9.3 mmol/L; VENOUS BLOOD HCO3 16.8 mmol/L (20-32); VENOUS BLOOD PH 7.27 (7.30-7.42); WHITE BLOOD COUNT 26.8 10^3/uL (4.0-10.5)
[2020-03-23 16:04] LABS: INTERNATIONAL RATION (INR) 1.05; PROTHROMBIN TIME 13.9 SEC (11.4-15.4)
[2020-03-23 16:15] LABS: ABSOLUTE LYMPHOCYTES# (MANUAL) 2.4 10^3/uL (0.5-4.7); ABSOLUTE MONOCYTES # (MANUAL) 0.8 10^3/uL (0.1-1.4); BAND NEUTROPHILS % (MANUAL) 1 % (3-5); BASOPHILS % (MANUAL) 0 % (0-2); EOSINOPHILS % (MANUAL) 1 % (0-6); LYMPHOCYTES % (MANUAL) 9 % (13-45); MONOCYTES % (MANUAL) 3 % (3-13); SEGMENTED NEUTROPHILS % (MAN) 86 % (42-78); TOTAL CELLS COUNTED 100
[2020-03-23 16:17] LABS: ANISOCYTOSIS SLIGHT; PLATELET COMMENT ADEQUATE; POIKILOCYTOSIS 1+; POLYCHROMASIA 1+; SPHEROCYTES 1+
[2020-03-23 16:18] LABS: OVALOCYTES 1+
[2020-03-23] MEDS ORDERED: NORMAL SALINE 500 ML IV ONE (16:36)
[2020-03-23] MEDS ORDERED: ONDANSETRON HCL INJ/PF 4 MG/2 ML SDV IV ONE (16:58)
[2020-03-23] MEDS ORDERED: VANCOMYCIN HCL INJ 1000 MG VIAL IV ONE (17:06)
--- NOTE | 2020-03-23 17:07 | RADIOLOGY REPORT (SQ) ---
EXAM DESCRIPTION: CHEST SINGLE VIEW IMAGES COMPLETED DATE/TIME: 03/23/2020 4:57 pm REASON FOR STUDY: weak COMPARISON: 10/12/2018 EXAM PARAMETERS: NUMBER OF VIEWS: One view. TECHNIQUE: Single frontal radiographic view of the chest acquired. RADIATION DOSE: NA LIMITATIONS: None. FINDINGS: LUNGS AND PLEURA: No opacities, masses or pneumothorax. No pleural effusion. MEDIASTINUM AND HILAR STRUCTURES: No masses. Contour normal. HEART AND VASCULAR STRUCTURES: Heart normal in size. Normal vasculature. BONES: No acute findings. HARDWARE: Right internal jugular hemodialysis catheter tip at right atrium. Left subclavian based ch est port with catheter tip at innominate vein. Mild focal kinking at the 1st rib clavicle junction. OTHER: No other significant finding. IMPRESSION: No evidence of acute cardiopulmonary process. Left subclavian base chest port with catheter tip at innominate vein. Mild focal kinking at the 1st rib/clavicle junction. TECHNICAL DOCUMENTATION: JOB ID: [id number] 2010 [email or web address]- All Rights Reserved Reading location - IP/workstation name: [email or web address]
--- NOTE | 2020-03-23 17:19 | ER Document Report ---
ED Dizziness/Weakness - General Chief Complaint: General Weakness Stated Complaint: WEAKNESS/PAIN ALL OVER Time Seen by Provider: 03/23/20 16:10 Primary Care Provider: JALYN MORALES MD [Primary Care Provider] - Follow up as needed Mode of Arrival: Medic Information source: Patient TRAVEL OUTSIDE OF THE [place] IN LAST 30 DAYS: No - HPI Notes: Patient presents complaint of severe nausea. Patient states that she was recently here and declined admission but went home and felt significantly worse so she return to the emergency department. She states she is having diffuse body pain. She is also having severe right arm pain where she had a recent surgery done for her dialysis graft. This pain is constant. Is worse with movement and better with rest. It does radiate up her right arm. She has not had fevers. She has also had some vomiting. No problems with stool. She states she is skipped her last dialysis session and feels very dehydrated. She states she did take 3 of her pain medications today. - Related Data Allergies/Adverse Reactions: Penicillins Allergy (Unknown, Verified 01/24/20 08:04) tetracycline [Tetracycline] Allergy (Unknown, Verified 01/24/20 08:04) Iodinated Contrast Media [IV Dye, Iodine Containing] Allergy (Verified 01/24/20 08:04) Liraglutide [From Victoza] Allergy (Verified 01/24/20 08:04) Past Medical History - General Information source: Patient - Social History Smoking Status: Former Smoker Frequency of alcohol use: None Drug Abuse: None Family History: Reviewed & Not Pertinent, Hypertension - Past Medical History Cardiac Medical History: Reports: Hx Hypercholesterolemia, Hx Hypertension Endocrine Medical History: Reports: Hx Diabetes Mellitus Type 2 - no meds Renal/ Medical History: Reports: Hx Hemodialysis, Hx Renal Insufficiency. Denies: Hx Peritoneal Dialysis GI Medical History: Reports: Hx Crohn's Disease Musculoskeletal Medical History: Reports Hx Arthritis - RA, ankylosing spondylitis Past Surgical History: Reports: Hx Bowel Surgery - colostomy, iliostomy, Hx Ce sarean Section, Hx Cholecystectomy, Hx Herniorrhaphy, Hx Vascular Surgery - Immunizations Hx Diphtheria, Pertussis, Tetanus Vaccination: Yes Hx Pneumococcal Vaccination: 03/05/13 Review of Systems - Review of Systems Constitutional: denies: Chills, Fever Cardiovascular: denies: Chest pain, Palpitations Respiratory: denies: Cough, Short of breath -: Yes All other systems reviewed and negative Physical Exam - Vital signs Vitals: Resp Pulse Ox 21 H 96 03/23/20 15:01 03/23/20 15:01 Interpretation: Hypotensive - General General appearance: Alert, Lethargic - HEENT Head: Normocephalic, Atraumatic Eyes: Normal Pupils: PERRL - Respiratory Respiratory status: No respiratory distress Chest status: Nontender Breath sounds: Normal Chest palpation: Normal - Cardiovascular Rhythm: Regular Heart sounds: Normal auscultation Murmur: No - Abdominal Inspection: Other - Has ileostomy bag Bowel sounds: Hypoactive Tenderness: Tender - Mild diffuse tenderness Organomegaly: No organomegaly - Back Back: Normal, Nontender - Extremities General upper extremity: Other - Right upper extremity has tenderness to palpation about the area of graft repair. I do not appreciate any induration or significant warmth. General lower extremity: Nontender, Normal temperature - Neurological Neuro grossly intact: Yes Cognition: Normal Orientation: AAOx4 Brock Coma Scale Eye Opening: Spontaneous Brock Coma Scale Verbal: Oriented Brock Coma Scale Motor: Obeys Commands [place] Coma Scale Total: 15 Speech: Normal - Psychological Associated symptoms: Normal affect, Normal mood - Skin Skin Temperature: Warm Skin Moisture: Dry Skin Color: Pale, Ecchymosis Course - Vital Signs Vital signs: Temp Pulse Resp BP Pulse Ox 97.9 F 19 127/75 H 96 03/23/20 15:02 03/23/20 19:03 03/23/20 19:03 03/23/20 18:56 03/23/20 19:23 Patient comes in complaining of severe dehydration and nausea with inability to eat. Blood pressure was low. It was hard to sort out how much of her low blood pressure was narcotic abuse versus dehydration versus possibly an occult bacteremia as she has had recent surgery on her graft. Possibly was also a combination of these therefore she was treated with fluids, Narcan and with antibiotics. At this time she is having significant response to Narcan her blood pressure is much better. She is also much more awake. She is on chronic steroids which elevates her white blood cell count however it is not usually elevated as much as it is now. Possibly this is a reaction to dehydration possibly was a reaction to an occult bacteremia once again. She has not been febrile or tachycardic. She is alert and is not confused. At this time it seems that the safest thing is to have the patient admitted as she also has recently skipped dialysis and has an increased potassium. I have discussed the case with the hospitalist and with the ferryboat deckhand. She has been given medications to treat her high potassium as well. - Laboratory Result Diagrams: 03/23/20 15:44 03/23/20 18:07 Laboratory results interpreted by me: 03/23/20 03/23/20 03/23/20 15:44 15:44 18:07 WBC 26.8 H RDW 15.3 H Seg Neuts % (Manual) 86 H Band Neutrophils % 1 L Lymphocytes % (Manual) 9 L Abs Neuts (Manual) 23.3 H VBG pH 7.27 L VBG HCO3 16.8 L Sodium 132.4 L Potassium 6.1 H* Carbon Dioxide 15 L BUN 77 H Creatinine 7.05 H Est GFR ( Amer) 7 L Est GFR (MDRD) Non-Af 6 L Glucose 111 H Direct Bilirubin 0.7 H Alkaline Phosphatase 192 H Albumin 3.1 L - Diagnostic Test Radiology reviewed: Image reviewed, Reports reviewed - EKG Interpretation by Me EKG shows normal: Sinus rhythm Rate: Normal - 81 Rhythm: NSR [place]/QRS: No: Right axis deviation, Left axis deviation Discharge - Discharge Clinical Impression: Dehydration, Narcotic abuse, Hyperkalemia Hypotension Qualifiers: Hypotension type: hypotension due to drug Qualified Code(s): I95.2 - Hypotension due to drugs Condition: Serious Disposition: ADMITTED INPATIENT Admitting Provider: [place] (Hospitalist) Unit Admitted: Telemetry Referrals: JALYN MORALES MD [Primary Care Provider] - Follow up as needed
[2020-03-23] MEDS ORDERED: AZTREONAM INJ 1 GM VIAL IV ONE (17:22)
--- NOTE | 2020-03-23 18:20 | RADIOLOGY REPORT (SQ) ---
EXAM DESCRIPTION: U/S EXTREMITY NONVASCULAR LTD IMAGES COMPLETED DATE/TIME: 03/23/2020 5:57 pm REASON FOR STUDY: recent right arm surg/pain/possible abscess COMPARISON: None. TECHNIQUE: Dynamic and static grayscale images acquired of the localized site of clinical concern an d recorded on PACS. Additional selected color Doppler and spectral images recorded. SITE OF CONCERN: Right forearm LIMITATIONS: Limited field of view due to overlying surgical bandages. FINDINGS: SKIN AND SUBCUTANEOUS TISSUES: Diffuse subcutaneous interstitial edema is seen without foc al fluid collection or abscess. DEEP SOFT TISSUES/MUSCLES: No masses. No fluid collections. No edema. VASCULAR: No increased or decreased vascularity. No occlusions. OTHER: No other significant finding. IMPRESSION: Diffuse interstitial edema without focal fluid collection or abscess. TECHNICAL DOCUMENTATION: JOB ID: [id number] 2010 [employer]- All Rights Reserved Reading location - IP/workstation name: [email or web address]
[2020-03-23 18:38] LABS: ALBUMIN 3.1 g/dL (3.5-5.0); ALKALINE PHOSPHATASE 192 U/L (38-126); ANION GAP 19 (5-19); ASPARTATE AMINO TRANSFERASE 22 U/L (14-36); BILIRUBIN,DIRECT 0.7 mg/dL (0.0-0.4); BILIRUBIN,TOTAL 0.7 mg/dL (0.2-1.3); BLOOD UREA NITROGEN 77 mg/dL (7-20); CALCIUM 9.5 mg/dL (8.4-10.2); CARBON DIOXIDE 15 mmol/L (22-30); CHLORIDE 98 mmol/L (98-107); GLUCOSE 111 mg/dL (75-110); TOTAL PROTEIN 6.3 g/dL (6.3-8.2)
[2020-03-23 18:41] LABS: POTASSIUM 6.1 mmol/L (3.6-5.0)
[2020-03-23] MEDS ORDERED: NORMAL SALINE 1000 ML 1,000 ML IV ONE (18:47)
[2020-03-23] MEDS ORDERED: NALOXONE HCL INJ/PF 0.4 MG/1 ML SDV IV ONE (18:51)
[2020-03-23] MEDS ORDERED: SODIUM POLYSTYRENE SULFONATE 15 GM/60 ML PO ONE (18:52)
[2020-03-23] MEDS ORDERED: SODIUM BICARBONATE 8.4% INJ 50 MEQ/50 ML DISP.SYRIN IV ONE (18:53)
[2020-03-23] MEDS ORDERED: DEXTROSE 50%-WATER 25 GM/50 ML DISP.SYRIN IV ONE (18:54)
[2020-03-23] MEDS ORDERED: INSULIN REG, HUMAN 100 UNIT/ML 3 ML VIAL (PYX) IV ONE (18:55)
--- NOTE | 2020-03-23 18:55 | EKG REPORT ---
SEVERITY:- OTHERWISE NORMAL ECG - SINUS RHYTHM LOW VOLTAGE IN FRONTAL LEADS : Confirmed by: Esau Brock MD 23-Mar-2020 18:54:37
[2020-03-23] MEDS ORDERED: MAGNESIUM HYDROXIDE SUSP 30 ML UDCUP PO PRN (20:05)
[2020-03-23] MEDS ORDERED: MAG HYDROX/AL HYDROX/SIMETH SUSP 30 ML UDCUP PO PRN (20:05)
[2020-03-23] MEDS ORDERED: HYDRALAZINE HCL INJ/PF 20 MG/1 ML SDV IV PRN (20:10)
[2020-03-23] MEDS ORDERED: INSULIN REG, HUMAN 100 UNIT/ML 3 ML VIAL (PYX) SUBCUT PRN (20:10)
[2020-03-23] MEDS ORDERED: ACETAMINOPHEN 325 MG TABLET PO PRN (20:10)
[2020-03-23] MEDS ORDERED: LORAZEPAM INJ 2 MG/1 ML VIAL IV PRN (20:10)
[2020-03-23] MEDS ORDERED: MELATONIN 5 MG TABLET PO PRN (20:10)
[2020-03-23] MEDS ORDERED: METOPROLOL TARTRATE PF/INJ 5 MG/5 ML SDV IV PRN (20:10)
[2020-03-23] MEDS ORDERED: GUAIFENESIN SYRP 200 MG/10 ML UDC PO PRN (20:10)
[2020-03-23] MEDS ORDERED: MORPHINE SULFATE 10 MG/ML INJ IV PRN ×4 (20:10→20:26)
[2020-03-23] MEDS ORDERED: DEXTROSE 40% GEL 15 GM TUBE PO PRN ×2 (20:12)
[2020-03-23] MEDS ORDERED: DEXTROSE 50%-WATER 25 GM/50 ML DISP.SYRIN IV PRN (20:12)
[2020-03-23] MEDS ORDERED: GLUCAGON,HUMAN RECOMB 1 MG INJ IM PRN (20:12)
[2020-03-23] MEDS: NORMAL SALINE 1000 ML 1,000 ML IV PRN (22:01)
[2020-03-23] MEDS: HEPARIN SOD (PORCINE) 5,000 UNIT/ML 1 ML VIAL SUBCUT SCH (22:47)
[2020-03-23] MEDS: METOCLOPRAMIDE HCL INJ/PF 10 MG/2 ML SDV IV SCH (22:48)
[2020-03-24] MEDS ORDERED: VANCOMYCIN HCL INJ 1000 MG VIAL IV SCH (00:15)
--- NOTE | 2020-03-24 00:23 | PDOC H&P ---
History of Present Illness Admission Date/PCP: 03/23/2020 19:40 JALYN MORALES MD Patient complains of: Nausea with vomiting History of Present Illness: DARRELL MONIQEU is a 54 year old female the emergency room with a 3-day history of nausea. She admits progressively worsening nausea with vomiting over the last 3 days becoming severe over the last 24 hours. Her nausea and vomiting have been accompanied by generalized weakness and associated with malaise and ague. She denies other associated or accompanying signs and symptoms. She admits prior similar episodes. She admits pain in her lumbar region where she had surgery 2 months ago, additionally she admits pain at the site of her recent dialysis graft surgery in her right arm and took more Percocet than prescribed today to treat the pain. She further admits missing her dialysis scheduled for Monday. She has not identified any additional aggravating or ameliorating factors for her nausea. In the emergency room she was found to be delirious and mildly hypotensive with improvement on both accounts following administration of Narcan and IV fluids. Her white blood count was elevated and her serum potassium was 6.1 resulting in administration of empiric antibiotic therapy and a intravenous potassium reduction cocktail. She was subsequently admitted to the hospital for further evaluation and treatment with Dr. Minor having been consulted and agreeing to provide dialysis for the patient tomorrow. Past Medical History Cardiac Medical History: Reports: Hyperlipidema, Hypertension Denies: Atrial Fibrillation, Congestive Heart Failure, Coronary Artery Disease Pulmonary Medical History: Reports: Pneumonia, Respiratory Failure Denies: Asthma, Chronic Obstructive Pulmonary Disease (COPD) EENT Medical History: Denies: Cataracts, Ears - Hearing aids Neurological Medical History: Denies: Hemorrhagic CVA, Ischemic CVA, Seizures Endocrine Medical History: Reports: Diabetes Mellitus Type 2 Denies: Diabetes Mellitus Type 1, Hyperthyroidism, Hypothyroidism, Obesity Renal/ Medical History: Reports: Chronic Kidney Disease, End Stage Renal Disease - On dialysis Monday, and Monday Denies: Nephrolithiasis Malignancy Medical History: Reports: None GI Medical History: Reports: Crohn's Disease Denies: Cirrhosis, Hepatitis, Peptic Ulcer Disease Musculoskeltal Medical History: Reports: Arthritis - RA, ankylosing spondylitis, Other - Chronic back pain Denies: Fibromyalgia Skin Medical History: Denies: Eczema, Psoriasis Psychiatric Medical History: Denies: Alcohol Dependency, Substance Abuse, Tobacco Dependency Traumatic Medical History: Reports: None Hematology: Denies: Anemia, Bleeding Tendencies Infectious Medical History: Reports: None Past Surgical History Past Surgical History: Reports: Section, Cholecystectomy, Herniorrhaphy, Orthopedic Surgery - Lumbar surgery January 2020, Vascular Surgery - Dialysis access surgeries Social History Information Source: Patient Lives with: Family Smoking Status: Former Smoker Electronic Cigarette use?: No Frequency of Alcohol Use: Rare Hx Recreational Drug Use: No Drugs: None Hx Prescription Drug Abuse: Yes - Current: Admits to taking extra Percocet today - Advance Directive Resuscitation Status: Full Code Surrogate healthcare decision maker:: Deangelo Monique Family History Family History: Hypertension Parental Family History Reviewed: Yes Children Family History Reviewed: No Sibling(s) Family History Reviewed.: Yes Medication/Allergy Home Medications: Cyanocobalamin (Vitamin B-12) [B-12] 1,000 mcg PO DAILY 08/25/17 Omeprazole 40 mg PO DAILY 08/25/17 Ondansetron HCl [Zofran 4 mg Tablet] 4 mg PO Q6HP PRN 08/25/17 Pravastatin Sodium [Pravachol] 20 mg PO QHS 08/25/17 Atenolol [Tenormin] 12.5 mg PO DAILY 03/23/20 Fluoxetine HCl [Prozac] 40 mg PO DAILY 03/23/20 Glipizide [Glucotrol] 5 mg PO BIDBS 03/23/20 Hydrocodone/Acetaminophen [Vicodin Hp 10-300 mg Tablet] 1 tab PO Q6HP PRN 03/23/20 Melatonin [Melatonin 5 mg Tablet] 10 mg PO QHS 03/23/20 Methocarbamol [Robaxin 750 mg Tablet] 750 mg PO QHS 03/23/20 Midodrine HCl 10 mg PO TID 03/23/20 Allergies/Adverse Reactions: Penicillins Allergy (Unknown, Verified 01/24/20 08:04) tetracycline [Tetracycline] Allergy (Unknown, Verified 01/24/20 08:04) Iodinated Contrast Media [IV Dye, Iodine Containing] Allergy (Verified 01/24/20 08:04) Liraglutide [From Victoza] Allergy (Verified 01/24/20 08:04) Review of Systems Constitutional: PRESENT: as per HPI, weakness - Generalized, other - Malaise, ague. ABSENT: chills, fever(s) Eyes: ABSENT: visual disturbances, other - Eye pain Ears: ABSENT: hearing changes, other - Ear pain Nose, Mouth, and Throat: ABSENT: headache(s), sore throat Cardiovascular: ABSENT: chest pain, palpitations Respiratory: ABSENT: cough, dyspnea Gastrointestinal: PRESENT: nausea, vomiting. ABSENT: abdominal pain, constipation, diarrhea, hematemesis Genitourinary: ABSENT: dysuria, hematuria Musculoskeletal: PRESENT: as per HPI, back pain - Chronic, other - Painful right upper extremity post surgical placement of dialysis access. ABSENT: joint swelling Integumentary: ABSENT: pruritus, rash Neurological: ABSENT: confusion, convulsions, focal weakness, memory loss, syncope Psychiatric: ABSENT: anxiety, depression Endocrine: ABSENT: cold intolerance, heat intolerance Hematologic/Lymphatic: ABSENT: easy bleeding, easy bruising Allergic/Immunologic: ABSENT: seasonal rhinorrhea Physical Exam Vital Signs: Temp Pulse Resp BP Pulse Ox 97.9 F 19 127/75 H 96 03/23/20 15:02 03/23/20 19:03 03/23/20 19:03 03/23/20 18:56 Intake & Output 03/21/20 03/22/20 03/23/20 23:59 23:59 23:59 Intake Total 500 Balance 500 Weight 61.8 kg General appearance: PRESENT: cooperative, mild distress - Secondary to low back pain, obese, other - Uremic breath noted Head exam: PRESENT: atraumatic, normocephalic Eye exam: PRESENT: conjunctiva pink. ABSENT: conjunctival injection, scleral i cterus Ear exam: PRESENT: normal external ear exam. ABSENT: bleeding, drainage Mouth exam: PRESENT: dry mucosa, neck supple Neck exam: ABSENT: thyromegaly, tracheal deviation Respiratory exam: PRESENT: clear to auscultation juan carlos, symmetrical, unlabored Cardiovascular exam: PRESENT: RRR. ABSENT: clicks, gallop, rubs Pulses: PRESENT: normal radial pulses, normal dorsalis pedis pul, other - Right upper extremity dialysis access noted Vascular exam: PRESENT: normal capillary refill. ABSENT: pallor GI/Abdominal exam: PRESENT: hypoactive bowel sounds, soft. ABSENT: tenderness Rectal exam: PRESENT: deferred Extremities exam: ABSENT: joint swelling, pedal edema Musculoskeletal exam: ABSENT: deformity, dislocation Neurological exam: PRESENT: alert, oriented to person, oriented to place, oriented to time, oriented to situation, CN II-XII grossly intact. ABSENT: motor sensory deficit Psychiatric exam: PRESENT: appropriate affect, normal mood Skin exam: PRESENT: dry, intact, warm, other - Right upper extremity (dialysis access) surgical site tender to palpation with local edema noted, lumbar surgical incision with a local draining abscess/ulcer approximately 1 cm in diameter with purulent exudate.. ABSENT: jaundice, rash, urticaria Results Laboratory Results: 03/23/20 15:44 03/23/20 18:07 03/23/20 03/23/20 03/23/20 15:44 15:44 15:44 WBC 26.8 H RBC 4.20 Hgb 12.8 Hct 38.3 MCV 91 MCH 30.5 MCHC 33.4 RDW 15.3 H Plt Count 245 Seg Neutrophils % Not Reportable VBG pH 7.27 L VBG pCO2 37.0 VBG HCO3 16.8 L VBG Base Excess -9.3 Sodium Cancelled Potassium Cancelled Chloride Cancelled Carbon Dioxide Cancelled Anion Gap Cancelled BUN Cancelled Creatinine Cancelled Est GFR ( Amer) Cancelled Est GFR (Non-Af Amer) Cancelled Glucose Cancelled Lactic Acid Calcium Cancelled Total Bilirubin Cancelled AST Cancelled Alkaline Phosphatase Cancelled Total Protein Cancelled Albumin Cancelled 03/23/20 03/23/20 15:44 18:07 WBC RBC Hgb Hct MCV MCH MCHC RDW Plt Count Seg Neutrophils % VBG pH VBG pCO2 VBG HCO3 VBG Base Excess Sodium 132.4 L Potassium 6.1 H* Chloride 98 Carbon Dioxide 15 L Anion Gap 19 BUN 77 H Creatinine 7.05 H Est GFR ( Amer) 7 L Est GFR (Non-Af Amer) Glucose 111 H Lactic Acid 2.0 Calcium 9.5 Total Bilirubin 0.7 AST 22 Alkaline Phosphatase 192 H Total Protein 6.3 Albumin 3.1 L Impressions: Chest X-Ray 03/23/20 16:32 IMPRESSION: No evidence of acute cardiopulmonary process. Left subclavian base chest port with catheter tip at innominate vein. Mild focal kinking at the 1st rib/clavicle junction. Extremity Ultrasound 03/23/20 17:07 IMPRESSION: Diffuse interstitial edema without focal fluid collection or abscess. Assessment and Plan - Diagnosis (1) Hypotension Qualifiers: Hypotension type: hypotension due to drug Qualified Code(s): I95.2 - Hypotension due to drugs Is this a current diagnosis for this admission?: Yes (2) Vomiting Qualifiers: Vomiting type: unspecified Vomiting Intractability: non-intractable Nausea presence: with nausea Qualified Code(s): R11.2 - Nausea with vomiting, unspecified Is this a current diagnosis for this admission?: Yes (3) Hypotension due to hypovolemia Is this a current diagnosis for this admission?: Yes (4) Hypovolemia due to dehydration Is this a current diagnosis for this admission?: Yes (5) Postoperative wound infection Is this a current diagnosis for this admission?: Yes (6) End stage renal disease on dialysis Is this a current diagnosis for this admission?: Yes (7) Hyperkalemia Is this a current diagnosis for this admission?: Yes (8) Narcotic abuse Is this a current diagnosis for this admission?: Yes (9) Crohn disease Qualifiers: Gastrointestinal tract location: unspecified location Digestive disease complication type: without complication Qualified Code(s): K50.90 - Crohn's disease, unspecified, without complications Is this a current diagnosis for this admission?: Yes (10) Hyperlipidemia Qualifiers: Hyperlipidemia type: unspecified Qualified Code(s): E78.5 - Hyperlipidemia, unspecified Is this a current diagnosis for this admission?: Yes (11) Hypertension Qualifiers: Hypertension type: essential hypertension Qualified Code(s): I10 - Essential (primary) hypertension Is this a current diagnosis for this admission?: Yes (12) Diabetes mellitus type 2 in nonobese Is this a current diagnosis for this admission?: Yes - Plan Summary Summary: Patient will be admitted to the medical floor in a telemetry bed where she will receive routine supportive and symptomatic cares. She will receive IV fluids utilizing normal saline at 167 mL/h x 12 hours. She will receive Ativan 1 mg IV every 4 hours as needed for anxiety or restlessness. She will receive morphine sulfate 2 to 4 mg IV every 2 hours as needed for pain. A nephrology consultation with Dr. Minor has been obtained. Before meals and at bedtime Accu-Cheks will be performed with sliding scale insulin for hyperglycemia and a hypoglycemic protocol in place. Patient will be on a cardiac, diabetic and di alysis restricted diet. Additional laboratory and/or radiographic evaluations will be obtained as needed. - Time Time Spent with patient: 15-24 minutes Medications reviewed and adjusted accordingly: Yes Anticipated Discharge Disposition: Home, Self Care Anticipated Discharge Timeframe: within 72 hours - Inpatient Certification Based on my medical assessment, after consideration of the patient's comorbidities, presenting symptoms, or acuity I expect that the services needed warrant INPATIENT care.: Yes I certify that my determination is in accordance with my understanding of Medicare's requirements for reasonable and necessary INPATIENT services [42 CFR 412.3e].: Yes Medical Necessity: Significant Comorbidiites Make Outpatient Treatment Too Risky, Need Close Monitoring Due to Risk of Patient Decompensation, Need For IV Fluids, Need For Continuous Telemetry Monitoring, Need for Pain Control, Risk of Complication if Not Cared For in Hospital
[2020-03-24] MEDS ORDERED: LEVOFLOXACIN 750 MG/D5W RTU 750 MG/150 ML RTUPB IV SCH (01:00)
[2020-03-24] MEDS ORDERED: LEVOFLOXACIN 750 MG/D5W RTU 750 MG/150 ML RTUPB IV ONE ×2 (01:00→08:30)
[2020-03-24] MEDS: HEPARIN SOD (PORCINE) 5,000 UNIT/ML 1 ML VIAL SUBCUT SCH ×2 (05:59→14:40)
[2020-03-24] MEDS ORDERED: PANTOPRAZOLE SODIUM 40 MG TABLET.DR PO SCH (06:00)
[2020-03-24] MEDS: DEXTROSE 50%-WATER 25 GM/50 ML DISP.SYRIN IV PRN ×5 (06:52→18:55)
[2020-03-24 07:44] LABS: HEMATOCRIT 35.2 % (36.0-47.0); HEMOGLOBIN 11.4 g/dL (12.0-15.5); MEAN CORPUSCULAR HEMOGLOBIN 30.4 pg (27.0-33.4); MEAN CORPUSCULAR HGB CONC 32.4 g/dL (32.0-36.0); MEAN CORPUSCULAR VOLUME 94 fl (80-97); PLATELET COUNT 103 10^3/uL (150-450); RED BLOOD COUNT 3.76 10^6/uL (3.72-5.28); RED CELL DISTRIBUTION WIDTH 14.3 % (11.5-14.0)
[2020-03-24 08:08] LABS: AMYLASE 47 U/L (30-110); BLOOD UREA NITROGEN 69 mg/dL (7-20); CALCIUM 8.6 mg/dL (8.4-10.2); CHOLESTEROL 60.66 mg/dL (0-200); GLUCOSE 87 mg/dL (75-110); TRIGLYCERIDES 86 mg/dL (<150)
[2020-03-24 08:13] LABS: CHLORIDE 107 mmol/L (98-107)
[2020-03-24 08:19] LABS: WHITE BLOOD COUNT 43.9 10^3/uL (4.0-10.5)
[2020-03-24 08:33] LABS: POTASSIUM 4.3 mmol/L (3.6-5.0)
[2020-03-24 08:37] LABS: CARBON DIOXIDE 8 mmol/L (22-30)
[2020-03-24 08:38] LABS: DIRECT LDL < 30 mg/dL (<100)
[2020-03-24 08:43] LABS: ANION GAP 21 (5-19)
[2020-03-24] MEDS ORDERED: NORMAL SALINE 1000 ML 1,000 ML IV ONE ×3 (08:57→14:18)
[2020-03-24] MEDS ORDERED: ACETAMINOPHEN 650 MG SUPP.RECT PR PRN (09:02)
[2020-03-24] MEDS: METOCLOPRAMIDE HCL INJ/PF 10 MG/2 ML SDV IV SCH ×3 (09:15→20:13)
--- NOTE | 2020-03-24 09:58 | RADIOLOGY REPORT (SQ) ---
EXAM DESCRIPTION: CHEST SINGLE VIEW IMAGES COMPLETED DATE/TIME: 03/24/2020 9:50 am REASON FOR STUDY: sepsis COMPARISON: 03/23/2020. EXAM PARAMETERS: NUMBER OF VIEWS: One view. TECHNIQUE: Single frontal radiographic view of the chest acquired. RADIATION DOSE: NA LIMITATIONS: None. FINDINGS: LUNGS AND PLEURA: Diffuse bilateral pulmonary infiltrates. Dense consolidation in the rig ht upper lobe. MEDIASTINUM AND HILAR STRUCTURES: No masses. Contour normal. HEART AND VASCULAR STRUCTURES: Heart normal in size. Normal vasculature. BONES: No acute findings. HARDWARE: Vascular port. Multi lumen catheter. OTHER: No other significant finding. IMPRESSION: DIFFUSE BILATERAL PULMONARY INFILTRATES CONCERNING FOR MULTIFOCAL PNEUMONIA. TECHNICAL DOCUMENTATION: JOB ID: [id number] 2010 [employer]- All Rights Reserved Reading location - IP/workstation name: [email or web address]
[2020-03-24] MEDS ORDERED: CEFEPIME 1 GM/D5W RTU 1 GM/50 ML RTUPB IV SCH (10:00)
[2020-03-24] MEDS ORDERED: DOCUSATE SODIUM 100 MG CAPSULE PO SCH (10:00)
[2020-03-24] MEDS ORDERED: GLUCAGON,HUMAN RECOMB 1 MG INJ IM PRN (10:12)
[2020-03-24] MEDS ORDERED: DEXTROSE 40% GEL 15 GM TUBE PO PRN ×2 (10:12)
[2020-03-24] MEDS ORDERED: DEXTROSE 50%-WATER 25 GM/50 ML DISP.SYRIN IV PRN ×2 (10:12)
[2020-03-24] MEDS ORDERED: ALBUTEROL SULFATE 0.083% NEB 2.5 MG/3 ML AMPUL NEB PRN (10:16)
--- NOTE | 2020-03-24 10:23 | PDOC PROGRESS REPORT ---
Subjective Progress Note for:: 03/24/20 Subjective:: The patient is a 54-year-old female with a past medical history significant for ESRD on dialysis (Monday; reportedly missed Monday dialysis session), hypertension, hyperlipidemia, DM 2, RA, ankylosing spondylitis, opiate dependent chronic back pain, obesity who was admitted 03/23/20 with Hypotension, Dehydration, and Post-op wound infection. Received calls from nursing this morning with panic lab values and concerning vital signs. Patient was seen immediately. She was found to be responsive to moderate shoulder shake, moaning "stop," but otherwise was nonresponsive. She did not open eyes, answer questions, or follow directions. She did moan again when the patient was rolled to the side to examine her back. She is currently on 4lpm via [place]; [facility] records do not indicate that the patient has chronic respiratory failure necessitating home oxygen therapy. ROS is limited secondary to mental status. Nursing is updated on plan of care. Spoke with Dr. Simon, bee robber, regarding patient's clinical status. Will provide fluid bolus per sepsis guidelines; if patient remains hypotensive, will transfer to his service. Patient may also require ICU for pressor support during dialysis sessions. Reason For Visit: NAUSEA AND VOMITING,DEHYDRATION,HYPOVOLEMIA, ACUTE Physical Exam Vital Signs: Temp Pulse Resp BP Pulse Ox 99.6 F 115 H 31 H 74/45 L 93 03/24/20 07:44 03/24/20 04:00 03/24/20 04:00 03/24/20 04:00 03/24/20 04:00 Intake & Output 03/23/20 03/24/20 03/25/20 06:59 06:59 06:59 Intake Total 1700 Output Total 100 Balance 1600 Weight 61.8 kg General appearance: PRESENT: well-developed, well-nourished - overweight, other - moderate distress; acutely ill appearing Head exam: PRESENT: atraumatic, normocephalic Eye exam: PRESENT: conjunctiva pink, EOMI, PERRLA. ABSENT: scleral icterus Mouth exam: PRESENT: dry mucosa, tongue midline Neck exam: ABSENT: carotid bruit, JVD, lymphadenopathy, thyromegaly Respiratory exam: PRESENT: clear to auscultation juan carlos, decreased breath sounds - shallow breathing, tachypnea, other - supplemental oxygen. ABSENT: rales, rhonchi, wheezes Cardiovascular exam: PRESENT: RRR, tachycardia. ABSENT: diastolic murmur, rubs, systolic murmur Pulses: PRESENT: +1 pedal pulses bilateral Vascular exam: PRESENT: normal capillary refill GI/Abdominal exam: PRESENT: normal bowel sounds, soft. ABSENT: distended, guar ding, mass, organolmegaly, rebound, tenderness Rectal exam: PRESENT: deferred Extremities exam: ABSENT: calf tenderness, clubbing, pedal edema, +1 edema, +2 edema Neurological exam: PRESENT: other - responds to loud verbal and painful stimuli Skin exam: PRESENT: dry, mottled, warm, other - poor skin turgor; 1 cm round wound w/ purulent drainage to lumbar spine. ABSENT: cyanosis, intact, rash Results Laboratory Results: 03/24/20 07:29 03/24/20 07:29 03/23/20 03/23/20 03/23/20 15:44 15:44 15:44 WBC 26.8 H RBC 4.20 Hgb 12.8 Hct 38.3 MCV 91 MCH 30.5 MCHC 33.4 RDW 15.3 H Plt Count 245 Seg Neutrophils % Not Reportable VBG pH 7.27 L VBG pCO2 37.0 VBG HCO3 16.8 L VBG Base Excess -9.3 Sodium Cancelled Potassium Cancelled Chloride Cancelled Carbon Dioxide Cancelled Anion Gap Cancelled BUN Cancelled Creatinine Cancelled Est GFR ( Amer) Cancelled Est GFR (Non-Af Amer) Cancelled Glucose Cancelled Lactic Acid Calcium Cancelled Phosphorus Magnesium Total Bilirubin Cancelled AST Cancelled Alkaline Phosphatase Cancelled Total Protein Cancelled Albumin Cancelled Triglycerides Cholesterol LDL Cholesterol Direct VLDL Cholesterol HDL Cholesterol Amylase Lipase TSH 03/23/20 03/23/20 03/23/20 15:44 18:07 19:48 WBC RBC Hgb Hct MCV MCH MCHC RDW Plt Count Seg Neutrophils % VBG pH VBG pCO2 VBG HCO3 VBG Base Excess Sodium 132.4 L Potassium 6.1 H* Chloride 98 Carbon Dioxide 15 L Anion Gap 19 BUN 77 H Creatinine 7.05 H Est GFR ( Amer) 7 L Est GFR (Non-Af Amer) Glucose 111 H Lactic Acid 2.0 2.7 H Calcium 9.5 Phosphorus Magnesium Total Bilirubin 0.7 AST 22 Alkaline Phosphatase 192 H Total Protein 6.3 Albumin 3.1 L Triglycerides Cholesterol LDL Cholesterol Direct VLDL Cholesterol HDL Cholesterol Amylase Lipase TSH 03/23/20 03/24/20 03/24/20 23:00 07:29 07:29 WBC 43.9 H* RBC 3.76 Hgb 11.4 L Hct 35.2 L MCV 94 MCH 30.4 MCHC 32.4 RDW 14.3 H Plt Count 103 L Seg Neutrophils % VBG pH VBG pCO2 VBG HCO3 VBG Base Excess Sodium 135.9 L Potassium 4.3 D Chloride 107 Carbon Dioxide 8 L* Anion Gap 21 H BUN 69 H Creatinine 6.21 H Est GFR ( Amer) 8 L Est GFR (Non-Af Amer) Glucose 87 Lactic Acid 3.9 H Calcium 8.6 Phosphorus 9.0 H Magnesium 1.7 Total Bilirubin AST Alkaline Phosphatase Total Protein Albumin Triglycerides 86 Cholesterol 60.66 LDL Cholesterol Direct < 30 VLDL Cholesterol 17.0 HDL Cholesterol 22 L Amylase 47 Lipase 206.4 TSH 03/24/20 03/24/20 07:29 07:29 WBC RBC Hgb Hct MCV MCH MCHC RDW Plt Count Seg Neutrophils % VBG pH VBG pCO2 VBG HCO3 VBG Base Excess Sodium Potassium Chloride Carbon Dioxide Anion Gap BUN Creatinine Est GFR ( Amer) Est GFR (Non-Af Amer) Glucose 104 Lactic Acid Calcium Phosphorus Magnesium Total Bilirubin AST Alkaline Phosphatase Total Protein Albumin Triglycerides Cholesterol LDL Cholesterol Direct VLDL Cholesterol HDL Cholesterol Amylase Lipase TSH 8.83 H Impressions: Extremity Ultrasound 03/23/20 17:07 IMPRESSION: Diffuse interstitial edema without focal fluid collection or abscess. Assessment and Plan - Diagnosis (1) Septic shock Is this a current diagnosis for this admission?: Yes Plan: Sepsis, due to multifocal pneumonia, lumbar spine area abscess, developing on admission, evidenced by acute encephalopathy, fever, tachycardia, hypotension, tachypnea, hypoxia on room air, thrombocytosis, leukocytosis, and elevated lactic acid. Blood cultures pending Wound culture pending Urine culture ordered Sputum culture ordered Influenza ordered Covid ordered Legionella ordered Patient will be provided IV fluid resuscitation followed by maintenance fluids as fluid volume status indicates. She is empirically placed on IV vancomycin, cefepime, and Levaquin. Will adjust antibiotics as cultures result. Discussed with Dr. Simon, bee robber; should patient remain hypotensive following initial IV fluid boluses, will upgrade to the ICU and transition services into his care. (2) Multifocal pneumonia Is this a current diagnosis for this admission?: Yes Plan: Chest x-ray today shows multifocal pneumonia. Chest x-ray done yesterday evening was negative for acute cardiopulmonary processes. On personal review, today's x-ray is more consistent with developing pneumonia and not pulmonary edema. Therefore, we will continue IV fluids. Influenza pending. Covid pending. Legionella pending. Patient is provided supplemental oxygen as needed maintain saturations greater than 89%. Cultures and antibiotics as above. Scheduled and as needed nebulizer treatments. Pulmonary toilet is encouraged with frequent turns, incentive spirometer, flutter valve, early ambulation. (3) Abscess Is this a current diagnosis for this admission?: Yes Plan: 1 cm round wound w/ purulent drainage to lumbar spine. Per H&P, patient had a lumbar procedure done at [facility]. It is unclear when this occurred or what exactly was done. I have requested operative report and DC summary from [facility]. Stat MRI of the lumbar spine pending. Cultures and antibiotics as above. (4) End stage renal disease on dialysis Is this a current diagnosis for this admission?: Yes Plan: Nephrology is consulted. Patient appears volume depleted; currently receiving IV fluid resuscitation per sepsis protocols. While in the emergency department yesterday evening, she did receive Kayexalate, sodium bicarb, insulin and dextrose for correction of her hyperkalemia. Avoid nephrotoxic medications; renally dosed where appropriate. Marcum catheter for strict I&O's. Serial BMPs. (5) Type 2 diabetes mellitus Qualifiers: Diabetes mellitus custodial insulin use: without custodial use Chronic kidney disease stage: on chronic dialysis Is this a current diagnosis for this admission?: Yes Plan: A1c 4.4% Holding oral medications while admitted. Patient is placed on a consistent carb diet/cardiac/dialysis. Accu-Cheks before meals and at bedtime with Humalog for sliding scale coverage. Hypoglycemia protocol in place. Registered dietitian certified breastfeeding educator consulted. (6) Suspected COVID-19 virus infection Is this a current diagnosis for this admission?: Yes Plan: We will obtain COVID testing. We will check d-dimer, ferritin, CRP. Consider full dose Lovenox pending d-dimer results. Provide supplemental oxygen as needed maintain saturations greater than 89%. As needed nebulizer treatments. Zinc, vitamin D, vitamin C, and melatonin supplementation. Encourage pulmonary toilet. Isolation precautions. - Time Time Spent with patient: 35 or more minutes Medications reviewed and adjusted accordingly: Yes Anticipated Discharge Disposition: undetermined Anticipated Discharge Timeframe: undetermined
[2020-03-24 10:27] LABS: ARTERIAL BLOOD BASE EXCESS -15.4 mmol/L; ARTERIAL BLOOD H2CO3 1.62 mmol/L (1.05-1.35); ARTERIAL BLOOD HCO3 14.8 mmol/L (20-24); ARTERIAL BLOOD O2 SATURATION 32.2 % (94-98); ARTERIAL BLOOD PCO2 53.7 mmHg (35-45); ARTERIAL BLOOD TOTAL CO2 16.4 mmol/L (21-25)
[2020-03-24 10:30] LABS: ARTERIAL BLOOD FIO2 5L
[2020-03-24 10:32] LABS: ARTERIAL BLOOD PH 7.06 (7.35-7.45); ARTERIAL BLOOD PO2 27.8 mmHg (80-100)
[2020-03-24] MEDS ORDERED: ROCURONIUM BROMIDE INJ 50 MG/5 ML VIAL IV ONE ×2 (10:59→20:53)
[2020-03-24] MEDS: NORMAL SALINE 1000 ML 1,000 ML IV PRN (11:14)
[2020-03-24 11:19] LABS: C-REACTIVE PROTEIN 81.7 mg/L (<10.0)
[2020-03-24] MEDS ORDERED: SODIUM BICARBONATE 8.4% INJ 50 MEQ/50 ML DISP.SYRIN IV ONE ×4 (11:30→20:37)
[2020-03-24] MEDS ORDERED: CEFEPIME 1 GM/D5W RTU 1 GM/50 ML RTUPB IV ONE (11:30)
--- NOTE | 2020-03-24 12:02 | PDOC CONSULTATION ---
Consultation Consult Date: 03/24/20 Provider Consulted: Gabriella RAHMAN Consult reason:: ESRD for hemodialysis History of Present Illness Admission Date/PCP: 03/23/20 19:39 JALYN MORALES MD History of Present Illness: DARRELL OLIVARES is a 54 year old female was admitted yesterday with a 3-day history of nausea. This morning when I see her she is completely moribund and she is having respiratory distress and she is very lethargic and semiresponsive to questions and therefore is unable to give a proper history. Therfore, chart review was done and discussions were done with the treating nurse on the floor. Background history includes chronic longstanding diabetes mellitus, hypertensi on, complicated Crohn's disease which has resulted in an ileostomy with the intermittent high output issues, Ankylosing spondylitis, chronic low back pain- opiate dependent,and ESRD on hemodialysis on Monday and she also had surgery to her lumbar spine approximately 45 weeks ago at [facility]. She admits progressively worsening nausea with vomiting over the last 3 days becoming severe over the last 24 hours. Her nausea and vomiting have been accompanied by generalized weakness and associated with malaise and ague. She denies other associated or accompanying signs and symptoms. She admits prior similar episodes. She admits pain in her lumbar region where she had surgery 2 months ago, additionally she admits pain at the site of her recent dialysis graft surgery in her right arm and took more Percocet than prescribed today to treat the pain. She further admits missing her dialysis scheduled for Monday. She has not identified any additional aggravating or ameliorating factors for her nausea. In the emergency room she was found to be delirious and mildly hypotensive with improvement on both accounts following administration of Narcan and IV fluids. Her white blood count was elevated and her serum potassium was 6.1 resulting in administration of empiric antibiotic therapy and a intravenous potassium reduction cocktail. urther evaluation has revealed that she has paraspinal abscess in the lumbar region cultures pending and she has been begun on broad-spectrum antibiotics chest x-ray shows pneumonic process. She was not tested for Covid and it is being tested today. Rest of the labs and medications were reviewed. Potassium is quite normal today she is and she has got severe Acidosis with positive lactic acid as well. Past Medical History Cardiac Medical History: Reports: Hyperlipidemia, Hypertension-primary Denies: Atrial Fibrillation, Coronary Artery Disease Pulmonary Medical History: Reports: Pneumonia, Respiratory Failure Denies: Asthma, Chronic Obstructive Pulmonary Disease (COPD) EENT Medical History: Denies: Cataracts, Ears - Hearing aids Neurological Medical History: Denies: Hemorrhagic CVA, Ischemic CVA, Seizures Endocrine Medical History: Reports: Diabetes Mellitus Type 2 Denies: Diabetes Mellitus Type 1, Hyperthyroidism, Hypothyroidism, Obesity Complications of Diabetes: Reports: None Renal/ Medical History: Reports: End Stage Renal Disease - On dialysis Monday, and Monday, Nephrolithiasis, Secondary Hyperparathyroidism Malignancy Medical History: Reports: None GI Medical History: Reports: Crohn's Disease Denies: Cirrhosis, Hepatitis, Peptic Ulcer Disease Musculoskeltal Medical History: Reports: Arthritis - RA, ankylosing spondylitis, Other - Chronic back pain Denies: Fibromyalgia Skin Medical History: Denies: Eczema, Psoriasis Psychiatric Medical History: Denies: Alcohol Dependency, Depression, Substance Abuse, Tobacco Dependency Traumatic Medical History: Reports: None Infectious Medical History: Reports: None Hematology Medical History: Reports Anemia of Chronic Kidney Disease Past Surgical History Past Surgical History: Reports: Section, Cholecystectomy, Dialysis Access Surgery AVF, Herniorrhaphy, Ileostomy, Orthopedic Surgery - Lumbar surgery January 2020, Vascular Surgery - Dialysis access surgeries Social History Lives with: Family Smoking Status: Former Smoker Electronic Cigarette use?: No Frequency of Alcohol Use: Rare Hx Recreational Drug Use: No Drugs: None Hx Prescription Drug Abuse: Yes - Current: Admits to taking extra Percocet today - Advance Directive Resuscitation Status: Full Code Family History Parental Family History Reviewed: No - Patient lethargic and unable to respond. Children Family History Reviewed: No Sibling(s) Family History Reviewed.: No Medication/Allergy Home Medications: Cyanocobalamin (Vitamin B-12) [B-12] 1,000 mcg PO DAILY 08/25/17 Omeprazole 40 mg PO DAILY 08/25/17 Ondansetron HCl [Zofran 4 mg Tablet] 4 mg PO Q6HP PRN 08/25/17 Pravastatin Sodium [Pravachol] 20 mg PO QHS 08/25/17 Atenolol [Tenormin] 12.5 mg PO DAILY 03/23/20 Fluoxetine HCl [Prozac] 40 mg PO DAILY 03/23/20 Glipizide [Glucotrol] 5 mg PO BIDBS 03/23/20 Hydrocodone/Acetaminophen [Vicodin Hp 10-300 mg Tablet] 1 tab PO Q6HP PRN 03/23/20 Melatonin [Melatonin 5 mg Tablet] 10 mg PO QHS 03/23/20 Methocarbamol [Robaxin 750 mg Tablet] 750 mg PO QHS 03/23/20 Midodrine HCl 10 mg PO TID 03/23/20 Allergies/Adverse Reactions: Penicillins Allergy (Unknown, Verified 01/24/20 08:04) tetracycline [Tetracycline] Allergy (Unknown, Verified 01/24/20 08:04) Iodinated Contrast Media [IV Dye, Iodine Containing] Allergy (Verified 01/24/20 08:04) Liraglutide [From Victoza] Allergy (Verified 01/24/20 08:04) Review of Systems ROS unobtainable: Due to mental status Review of Systems: Patient is quite moribund and lethargic and unresponsive to verbal questioning. Therefore chart review was done in discussions with the treating nurse. Physical Exam Vital Signs: Temp Pulse Resp BP Pulse Ox 98.4 F 94 24 H 51/10 L 87 L 03/24/20 08:23 03/24/20 08:23 03/24/20 08:23 03/24/20 08:23 03/24/20 08:23 Intake & Output 03/23/20 03/24/20 03/25/20 06:59 06:59 06:59 Intake Total 2700 Output Total 100 Balance 2600 Weight 61.8 kg General appearance: PRESENT: disheveled, severe distress Eye exam: PRESENT: EOMI, PERRLA. ABSENT: scleral icterus Ear exam: PRESENT: normal external ear exam Mouth exam: PRESENT: neck supple Neck exam: ABSENT: lymphadenopathy, meningismus, tenderness, thyromegaly, tracheal deviation Respiratory exam: PRESENT: clear to auscultation juan carlos, crackles, decreased breath sounds Cardiovascular exam: PRESENT: +S1, +S2 GI/Abdominal exam: PRESENT: normal bowel sounds, soft - Has ileostomy.. ABSENT: organomegaly, tenderness Extremities exam: ABSENT: pedal edema Neurological exam: PRESENT: altered Skin exam: ABSENT: erythema, mottled, rash Results Laboratory Results: 03/24/20 07:29 03/24/20 07:29 03/23/20 03/23/20 03/23/20 15:44 15:44 15:44 WBC 26.8 H RBC 4.20 Hgb 12.8 Hct 38.3 MCV 91 MCH 30.5 MCHC 33.4 RDW 15.3 H Plt Count 245 Seg Neutrophils % Not Reportable Carbonic Acid HCO3/H2CO3 Ratio ABG pH ABG pCO2 ABG pO2 ABG HCO3 ABG O2 Saturation ABG Base Excess VBG pH 7.27 L VBG pCO2 37.0 VBG HCO3 16.8 L VBG Base Excess -9.3 FiO2 Sodium Cancelled Potassium Cancelled Chloride Cancelled Carbon Dioxide Cancelled Anion Gap Cancelled BUN Cancelled Creatinine Cancelled Est GFR ( Amer) Cancelled Est GFR (Non-Af Amer) Cancelled Glucose Cancelled Lactic Acid Calcium Cancelled Phosphorus Magnesium Total Bilirubin Cancelled AST Cancelled Alkaline Phosphatase Cancelled Total Protein Cancelled Albumin Cancelled Triglycerides Cholesterol LDL Cholesterol Direct VLDL Cholesterol HDL Cholesterol Amylase Lipase TSH 03/23/20 03/23/20 03/23/20 15:44 18:07 19:48 WBC RBC Hgb Hct MCV MCH MCHC RDW Plt Count Seg Neutrophils % Carbonic Acid HCO3/H2CO3 Ratio ABG pH ABG pCO2 ABG pO2 ABG HCO3 ABG O2 Saturation ABG Base Excess VBG pH VBG pCO2 VBG HCO3 VBG Base Excess FiO2 Sodium 132.4 L Potassium 6.1 H* Chloride 98 Carbon Dioxide 15 L Anion Gap 19 BUN 77 H Creatinine 7.05 H Est GFR ( Amer) 7 L Est GFR (Non-Af Amer) Glucose 111 H Lactic Acid 2.0 2.7 H Calcium 9.5 Phosphorus Magnesium Total Bilirubin 0.7 AST 22 Alkaline Phosphatase 192 H Total Protein 6.3 Albumin 3.1 L Triglycerides Cholesterol LDL Cholesterol Direct VLDL Cholesterol HDL Cholesterol Amylase Lipase TSH 03/23/20 03/24/20 03/24/20 23:00 07:29 07:29 WBC 43.9 H* RBC 3.76 Hgb 11.4 L Hct 35.2 L MCV 94 MCH 30.4 MCHC 32.4 RDW 14.3 H Plt Count 103 L Seg Neutrophils % Carbonic Acid HCO3/H2CO3 Ratio ABG pH ABG pCO2 ABG pO2 ABG HCO3 ABG O2 Saturation ABG Base Excess VBG pH VBG pCO2 VBG HCO3 VBG Base Excess FiO2 Sodium 135.9 L Potassium 4.3 D Chloride 107 Carbon Dioxide 8 L* Anion Gap 21 H BUN 69 H Creatinine 6.21 H Est GFR ( Amer) 8 L Est GFR (Non-Af Amer) Glucose 87 Lactic Acid 3.9 H Calcium 8.6 Phosphorus 9.0 H Magnesium 1.7 Total Bilirubin AST Alkaline Phosphatase Total Protein Albumin Triglycerides 86 Cholesterol 60.66 LDL Cholesterol Direct < 30 VLDL Cholesterol 17.0 HDL Cholesterol 22 L Amylase 47 Lipase 206.4 TSH 03/24/20 03/24/20 03/24/20 07:29 07:29 10:00 WBC RBC Hgb Hct MCV MCH MCHC RDW Plt Count Seg Neutrophils % Carbonic Acid 1.62 H HCO3/H2CO3 Ratio 9:1 ABG pH 7.06 L* ABG pCO2 53.7 H ABG pO2 27.8 L* ABG HCO3 14.8 L ABG O2 Saturation 32.2 L ABG Base Excess -15.4 VBG pH VBG pCO2 VBG HCO3 VBG Base Excess FiO2 5L Sodium Potassium Chloride Carbon Dioxide Anion Gap BUN Creatinine Est GFR ( Amer) Est GFR (Non-Af Amer) Glucose 104 Lactic Acid Calcium Phosphorus Magnesium Total Bilirubin AST Alkaline Phosphatase Total Protein Albumin Triglycerides Cholesterol LDL Cholesterol Direct VLDL Cholesterol HDL Cholesterol Amylase Lipase TSH 8.83 H 03/24/20 10:20 WBC RBC Hgb Hct MCV MCH MCHC RDW Plt Count Seg Neutrophils % Carbonic Acid HCO3/H2CO3 Ratio ABG pH ABG pCO2 ABG pO2 ABG HCO3 ABG O2 Saturation ABG Base Excess VBG pH VBG pCO2 VBG HCO3 VBG Base Excess FiO2 Sodium Potassium Chloride Carbon Dioxide Anion Gap BUN Creatinine Est GFR ( Amer) Est GFR (Non-Af Amer) Glucose Lactic Acid 3.2 H Calcium Phosphorus Magnesium Total Bilirubin AST Alkaline Phosphatase Total Protein Albumin Triglycerides Cholesterol LDL Cholesterol Direct VLDL Cholesterol HDL Cholesterol Amylase Lipase TSH Impressions: Extremity Ultrasound 03/23/20 17:07 IMPRESSION: Diffuse interstitial edema without focal fluid collection or abscess. Chest X-Ray 03/24/20 00:00 IMPRESSION: DIFFUSE BILATERAL PULMONARY INFILTRATES CONCERNING FOR MULTIFOCAL PNEUMONIA. Assessment & Plan - Diagnosis (1) Septic shock Is this a current diagnosis for this admission?: Yes Plan: Patient currently in septic shock with initial primary focus most likely postoperative wound infection around the lumbar spine spinal area. Chest x-ray shows multifocal pneumonia ? Aspiration and her Covid status needs to be clarified as she was not tested for that initially.Blood cultures are now growing gram-negative rods and she is on IV cefepime. She would most likely need to be transferred to the ICU for pressor support and possible respiratory failure/intubation.Patient is very critical. (2) End stage renal disease on dialysis Is this a current diagnosis for this admission?: Yes Plan: Last dialyzed on Monday. She is making small amounts of urine still. Potassium was high which has been corrected with appropriate medical measures yesterday in the ER. Currently she is volume depleted and there are no indications for renal replacement. She would need to be on pressor support for dialysis and will need to be transferred to the ICU and hopefully can put her back on dialysis tomorrow. (3) Abscess Is this a current diagnosis for this admission?: Yes Plan: Paraspinal abscess in the lumbar region. She is status post spinal surgery apparently in [facility] few weeks ago. (4) Diabetes mellitus type 2 in nonobese Is this a current diagnosis for this admission?: Yes Plan: As a hospitalist. Avoid hypoglycemia. (5) Hyperkalemia Is this a current diagnosis for this admission?: Yes Plan: Currently stable. No indications for dialysis today. (6) Hypotension Qualifiers: Hypotension type: hypotension due to drug Qualified Code(s): I95.2 - Hypotension due to drugs Is this a current diagnosis for this admission?: Yes Plan: Secondary to septic shock. IV fluids on.Lactic acid is high. (7) Multifocal pneumonia Is this a current diagnosis for this admission?: Yes Plan: Aspiration versus others in the differential. Her Covid status needs to be clarified. (8) Postoperative wound infection Is this a current diagnosis for this admission?: Yes Plan: Status post spinal surgery few weeks ago at [facility] and she was developing an abscess with pus oozing in the lumbar region. Cultures pending. However gr am-negative rods in blood cultures now. (9) Crohn disease Qualifiers: Gastrointestinal tract location: unspecified location Digestive disease complication type: without complication Qualified Code(s): K50.90 - Crohn's disease, unspecified, without complications Is this a current diagnosis for this admission?: Yes Plan: Complicated. Has ileostomy. Issues with intermittent high output volume discharges.
[2020-03-24] MEDS ORDERED: DEXTROSE 40% GEL 15 GM TUBE ONE (12:13)
[2020-03-24] MEDS ORDERED: DEXTROSE 5%-NORMAL SALINE 1,000 ML IV PRN (12:50)
[2020-03-24] MEDS ORDERED: DEXTROSE 5%-WATER 1000 ML 1,000 ML IV PRN (12:50)
[2020-03-24] MEDS ORDERED: DOPAMINE HCL/DEXTROSE 5%-WATER 800 MG/250 ML RTUINJ IV PRN ×2 (13:01→19:48)
[2020-03-24] MEDS: INSULIN LISPRO 100 UNIT/ML 3 ML VIAL SUBCUT SCH ×2 (13:13→19:54)
[2020-03-24] MEDS ORDERED: NOREPINEPHRINE BITARTRATE INJ/PF 4 MG/4 ML SDV IV ONE ×2 (14:56→20:15)
[2020-03-24] MEDS ORDERED: VASOPRESSIN INJ 20 UNIT/1 ML VIAL ONE (14:57)
[2020-03-24] MEDS ORDERED: SODIUM BICARBONATE 8.4% INJ 50 MEQ/50 ML DISP.SYRIN ONE ×7 (15:18→21:13)
[2020-03-24] MEDS: DEXTROSE 5%-WATER 250 ML with NOREPINEPHRINE BITARTRATE 4 MG IV PRN ×4 (15:20→20:55)
[2020-03-24] MEDS: ALBUTEROL SULFATE 0.083% NEB 2.5 MG/3 ML AMPUL NEB SCH ×2 (16:03→21:51)
[2020-03-24 16:30] LABS: VENOUS BLOOD BASE EXCESS -16.1 mmol/L; VENOUS BLOOD HCO3 12.2 mmol/L (20-32); VENOUS BLOOD PCO2 37.3 mmHg (35-63)
[2020-03-24 16:35] LABS: VENOUS BLOOD PH 7.13 (7.30-7.42)
[2020-03-24 16:42] LABS: BLOOD UREA NITROGEN 61 mg/dL (7-20); CALCIUM 7.5 mg/dL (8.4-10.2); GLUCOSE 117 mg/dL (75-110); POTASSIUM 4.7 mmol/L (3.6-5.0)
[2020-03-24 16:47] LABS: CARBON DIOXIDE 12 mmol/L (22-30); CHLORIDE 107 mmol/L (98-107)
--- NOTE | 2020-03-24 16:47 | RADIOLOGY REPORT (SQ) ---
EXAM DESCRIPTION: CHEST SINGLE VIEW IMAGES COMPLETED DATE/TIME: 03/24/2020 4:31 pm REASON FOR STUDY: Central Line Placement COMPARISON: 03/24/2020 at 0931 hours. EXAM PARAMETERS: NUMBER OF VIEWS: One view. TECHNIQUE: Single frontal radiographic view of the chest acquired. RADIATION DOSE: NA LIMITATIONS: None. FINDINGS: LUNGS AND PLEURA: Bilateral pulmonary infiltrates, unchanged. No pneumothorax. MEDIASTINUM AND HILAR STRUCTURES: No masses. Contour normal. HEART AND VASCULAR STRUCTURES: Heart normal in size. Normal vasculature. BONES: No acute findings. HARDWARE: Multi lumen catheter and vascular port unchanged. New central venous catheter entering the left jugular region with the tip at the level of the superior vena cava. OTHER: No other significant finding. IMPRESSION: INTERVAL PLACEMENT OF CENTRAL LINE IN SATISFACTORY POSITION WITH NO PNEUMOTHORAX. OTHER HURTADO NO CHANGE IN APPEARANCE OF THE CHEST. TECHNICAL DOCUMENTATION: JOB ID: [id number] 2010 [employer]- All Rights Reserved Reading location - IP/workstation name: [email or web address]
[2020-03-24 16:50] LABS: ANION GAP 20 (5-19)
[2020-03-24] MEDS ORDERED: METHYLPREDNISOLONE INJ 125 MG/2 ML SDV ONE (17:48)
[2020-03-24] MEDS ORDERED: METHYLPREDNISOLONE INJ 125 MG/2 ML SDV IV ONE (17:49)
[2020-03-24] MEDS ORDERED: HEPARIN SOD (PORCINE) 1,000 UNIT/ML 10 ML VIAL IV ONE (17:57)
--- NOTE | 2020-03-24 18:13 | Operative Report ---
Bedside Procedure - History of Present Illness Indication for Procedure: shock Date: 03/24/20 Provider: SUNITHA CHRIS - Central Line Left Internal jugular Consent obtained: No - emergent conditions Central line pre-insertion: Sterile PPE donned, Chloraprep applied Central line lumen type: Triple Anesthetic type: 1% Lidocaine mL's of anesthesia: 5 Ultrasound guided: Yes CM at insertion site: 19 Line secured with sutures: Yes Central line post-insertion: Blood return from lumens, Biopatch applied, Sutured, Sterile dressing applied, Position confirmed w/ CXR Number of attempts: 1 Complications: No
[2020-03-24 18:21] LABS: PARTIAL THROMBOPLASTIN TIME 46.2 SEC (23.5-35.8)
[2020-03-24 18:22] LABS: HEMATOCRIT 31.4 % (36.0-47.0); HEMOGLOBIN 9.8 g/dL (12.0-15.5); MEAN CORPUSCULAR HEMOGLOBIN 29.6 pg (27.0-33.4); MEAN CORPUSCULAR HGB CONC 31.2 g/dL (32.0-36.0); MEAN CORPUSCULAR VOLUME 95 fl (80-97); RED BLOOD COUNT 3.31 10^6/uL (3.72-5.28); RED CELL DISTRIBUTION WIDTH 15.1 % (11.5-14.0)
[2020-03-24] MEDS ORDERED: RINGERS SOLUTION,LACTATED 1,000 ML IV PRN (18:32)
[2020-03-24 18:41] LABS: PLATELET COUNT 71 10^3/uL (150-450)
[2020-03-24 18:43] LABS: PROTHROMBIN TIME 23.6 SEC (11.4-15.4)
[2020-03-24 18:47] VITALS: BP 68/53
[2020-03-24 18:49] LABS: ABSOLUTE LYMPHOCYTES# (MANUAL) 1.2 10^3/uL (0.5-4.7); ABSOLUTE MONOCYTES # (MANUAL) 0.6 10^3/uL (0.1-1.4); BASOPHILS % (MANUAL) 0 % (0-2); EOSINOPHILS % (MANUAL) 0 % (0-6); LYMPHOCYTES % (MANUAL) 2 % (13-45); METAMYELOCYTES % (MANUAL) 3 % (0-1); MONOCYTES % (MANUAL) 1 % (3-13); NUCLEATED RED BLOOD CELLS 1 /100 WBC (0); SEGMENTED NEUTROPHILS % (MAN) 74 % (42-78); TOTAL CELLS COUNTED 100
[2020-03-24 18:54] LABS: ANISOCYTOSIS SLIGHT; POLYCHROMASIA SLIGHT; TOXIC VACUOLATION PRESENT
[2020-03-24 18:55] LABS: PLATELET COMMENT DECREASED; PLATELET LARGE PRESENT
[2020-03-24 18:56] LABS: BAND NEUTROPHILS % (MANUAL) 20 % (3-5)
[2020-03-24 18:58] LABS: WHITE BLOOD COUNT 58.9 10^3/uL (4.0-10.5)
[2020-03-24 19:01] LABS: OVALOCYTES SLIGHT; POIKILOCYTOSIS SLIGHT
--- NOTE | 2020-03-24 19:10 | ADVANCED CARE ---
- Diagnosis (1) Septic shock Diagnosis Current: Yes (2) Multifocal pneumonia Diagnosis Current: Yes (3) Abscess Diagnosis Current: Yes (4) End stage renal disease on dialysis Diagnosis Current: Yes (5) Type 2 diabetes mellitus Diagnosis Current: Yes (6) Suspected COVID-19 virus infection Diagnosis Current: Yes Attendance: Patient's emergency contact, Deangelo Monique (son), by phone. Resuscitation Status: Full Code Discussion: Discussed the patient's admitting diagnoses, worsening clinical condition overnight, and current poor prognosis related to septic shock. We discussed the patient's multifocal pneumonia, concern for COVID-19, and the wound noted to the lumbar spine region of her back at could be evidence of a lumbar epidural abscess, discitis, osteomyelitis. Family member was of low health literacy and so layman terms were used whenever possible. He was advised that I was very concerned about his mother and that she would be shortly moved to the ICU for continued aggressive interventions. Mr. Monique relates that his mother had never spoken to him about her end-of-life wishes and to his knowledge, she was a full code and would want aggressive interventions. He did provide telephone consent for central line placement. He was encouraged to come to the hospital; he was assured that arrangements will be made for him to be able to visit with his mother at least once but that I could not make further promises regarding visitation allowance as she is currently being evaluated for COVID-19. He was provided multiple opportunities to ask questions; all answered to his satisfaction, although, I anticipate that he will need review as it was clear that he was quite overwhelmed by his mother's clinical condition and as well as medical language. Care Planning Goals: FULL CODE Central Line placement. ICU admission as indicated. Intubation/Ventilation as indicated. Time Spent: 30 min
--- NOTE | 2020-03-24 19:23 | CRITICAL CARE ADMISSION REPORT ---
HPI Date:: 03/24/20 Time:: 17:13 Reason for ICU Reason:: Shock Admission Date/Time & PCP: Admission Date/Time: 03/23/20 19:39 Primary Care Provider: JALYN MORALES MD HPI: This 54-year-old female this 54-year-old female is seen in consultation at the request of Kelsey Mccain RN for recommendations on further evaluation and management of shock. I was initially called to see this patient due to concerns about profound hypotension. Fortuitously, upon my arrival, the medical billing clerk determined that the patient's fingerstick glucose value was undetectably low. The patient was indeed quite lethargic. 1 amp of D50 along with glucose gel was provided with considerable improvement in symptoms. Her blood pressure was noted to achieve 80-90 systolic. However, repeat fingerstick also revealed that the patient's glucose level had only come up to about 47. Consequently, she continued to get supplemental glucose in the form of D50, glucose gel along with initiation of D10 and D5 IV infusions. Despite continuing treatment (including, normalization of her serum glucose values), the patient failed to have improvement in her blood pressure. Consequently, she was transferred to the ICU, where she was initiated on vasopressor administration. She was was originally admitted on 03/23/2020 after presenting with a 3-day history of nausea. Her initial evaluation revealed that she has a paraspinal abscess in the lumbar region. She was started on broad-spectrum antibiotic coverage with cefepime, Levaquin and vancomycin. Covid test is pending. Of note, she has purulent drainage from her abscess. She was admitted and initiated on treatment for septic shock resumed to be secondary to the purulent drainage from her paraspinous abscess. History obtained from:: Kelsey Capellan NP - Diagnosis/Plan (1) Acute hypoxemic respiratory failure Is this a current diagnosis for this admission?: Yes Plan: Titrate supplemental oxygen to maintain SPO2 93+ percent. (2) Gram negative septicemia Is this a current diagnosis for this admission?: Yes Plan: Blood cultures (03/23) isolating gram-negative rods (2 of 2). (3) Septic shock Is this a current diagnosis for this admission?: Yes Plan: IV fluid resuscitation with lactated Ringer's. Continue empiric antibiotics. Check random cortisol. (4) Multifocal pneumonia Is this a current diagnosis for this admission?: Yes Plan: Continue empiric antibiotics (cefepime/levofloxacin/vancomycin). (5) Hypoglycemic shock Is this a current diagnosis for this admission?: Yes Plan: Accu-Cheks every 1 hour. (6) Suspected COVID-19 virus infection Is this a current diagnosis for this admission?: Yes (7) Postoperative wound infection Is this a current diagnosis for this admission?: Yes Plan: Continue empiric antibiotics with cefepime/levofloxacin/vancomycin. (8) End stage renal disease on dialysis Is this a current diagnosis for this admission?: Yes (9) Type 2 diabetes mellitus Qualifiers: Diabetes mellitus alf insulin use: without intermediate manager use Chronic kidney disease stage: on chronic dialysis Is this a current diagnosis for this admission?: Yes (10) Port catheter in place Is this a current diagnosis for this admission?: Yes Past Medical History Cardiac Medical History: Reports: Hyperlipidema, Hypertension Denies: Atrial Fibrillation, Congestive Heart Failure, Coronary Artery Disease Pulmonary Medical History: Reports: Pneumonia, Respiratory Failure Denies: Asthma, Chronic Obstructive Pulmonary Disease (COPD) EENT Medical History: Denies: Cataracts, Ears - Hearing aids Neurological Medical History: Denies: Hemorrhagic CVA, Ischemic CVA, Seizures Endocrine Medical History: Reports: Diabetes Mellitus Type 2 Denies: Diabetes Mellitus Type 1, Hyperthyroidism, Hypothyroidism, Obesity Renal/ Medical History: Reports: Chronic Kidney Disease, End Stage Renal Disease - On dialysis Monday, and Monday, Nephrolithiasis Malignancy Medical History: Reports: None GI Medical History: Reports: Crohn's Disease Denies: Cirrhosis, Hepatitis, Peptic Ulcer Disease Musculoskeltal Medical History: Reports: Arthritis - RA, ankylosing spondylitis, Other - Chronic back pain Denies: Fibromyalgia Skin Medical History: Denies: Eczema, Psoriasis Psychiatric Medical History: Denies: Alcohol Dependency, Depression, Substance Abuse, Tobacco Dependency Traumatic Medical History: Reports: None Hematology: Denies: Anemia, Bleeding Tendencies Infectious Medical History: Reports: None Past Surgical History Past Surgical History: Reports: Section, Cholecystectomy, Herniorrhaphy, Ileostomy, Orthopedic Surgery - Lumbar surgery January 2020, Vascular Surgery - Dialysis access surgeries Social/Family History - Social History Lives with: Family Smoking Status: Former Smoker Frequency of Alcohol Use: Rare Hx Recreational Drug Use: No Drugs: None Hx Prescription Drug Abuse: Yes - Current: Admits to taking extra Percocet today - Medication/Allergies Home Medications: Cyanocobalamin (Vitamin B-12) [B-12] 1,000 mcg PO DAILY 08/25/17 Omeprazole 40 mg PO DAILY 08/25/17 Ondansetron HCl [Zofran 4 mg Tablet] 4 mg PO Q6HP PRN 08/25/17 Pravastatin Sodium [Pravachol] 20 mg PO QHS 08/25/17 Atenolol [Tenormin] 12.5 mg PO DAILY 03/23/20 Fluoxetine HCl [Prozac] 40 mg PO DAILY 03/23/20 Glipizide [Glucotrol] 5 mg PO BIDBS 03/23/20 Hydrocodone/Acetaminophen [Vicodin Hp 10-300 mg Tablet] 1 tab PO Q6HP PRN 03/23/20 Melatonin [Melatonin 5 mg Tablet] 10 mg PO QHS 03/23/20 Methocarbamol [Robaxin 750 mg Tablet] 750 mg PO QHS 03/23/20 Midodrine HCl 10 mg PO TID 03/23/20 Allergies/Adverse Reactions: Penicillins Allergy (Unknown, Verified 01/24/20 08:04) tetracycline [Tetracycline] Allergy (Unknown, Verified 01/24/20 08:04) Iodinated Contrast Media [IV Dye, Iodine Containing] Allergy (Verified 01/24/20 08:04) Liraglutide [From Victoza] Allergy (Verified 01/24/20 08:04) Review of Systems ROS unobtainable: Due to mental status Physical Exam Vital Signs: Temp Pulse Resp BP Pulse Ox 99.1 F 116 H 28 H 72/24 L 92 03/24/20 16:00 03/24/20 16:00 03/24/20 16:00 03/24/20 16:00 03/24/20 16:00 Intake & Output 03/23/20 03/24/20 03/25/20 06:59 06:59 06:59 Intake Total 2700 0 Output Total 100 320 Balance 2600 -320 Weight 61.8 kg 65.6 kg Weight/Height Weight 65.6 kg Height 1.24 m General appearance: PRESENT: obese, other. ABSENT: well-nourished Head exam: PRESENT: atraumatic, normocephalic Eye exam: PRESENT: conjunctiva pink, EOMI, PERRLA. ABSENT: scleral icterus Mouth exam: PRESENT: dry mucosa, tongue midline Neck exam: ABSENT: carotid bruit, JVD, lymphadenopathy, thyromegaly Respiratory exam: PRESENT: clear to auscultation juan carlos, tachypnea. ABSENT: rales, rhonchi, wheezes Cardiovascular exam: PRESENT: RRR, tachycardia. ABSENT: diastolic murmur, rubs, systolic murmur Pulses: PRESENT: normal carotid pulses GI/Abdominal exam: PRESENT: normal bowel sounds, soft. ABSENT: distended, guarding, mass, organolmegaly, rebound, tenderness Gentrourinary exam: PRESENT: indwelling catheter Extremities exam: PRESENT: full ROM. ABSENT: calf tenderness, clubbing, pedal edema Musculoskeletal exam: PRESENT: normal inspection. ABSENT: deformity Neurological exam: PRESENT: awake, oriented to person, oriented to place, oriented to situation, CN II-XII grossly intact. ABSENT: reflexes normal, motor sensory deficit Psychiatric exam: ABSENT: agitated, anxious Skin exam: PRESENT: cyanosis, dry, intact, warm. ABSENT: rash Tubes/Lines: PRESENT: Dialysis catheter, Other - Left Port-A-Cath Laboratory/Radiographs Laboratory Results: 03/24/20 07:29 03/24/20 16:05 03/23/20 03/23/20 03/23/20 18:07 19:48 23:00 WBC RBC Hgb Hct MCV MCH MCHC RDW Plt Count Carbonic Acid HCO3/H2CO3 Ratio ABG pH ABG pCO2 ABG pO2 ABG HCO3 ABG O2 Saturation ABG Base Excess VBG pH VBG pCO2 VBG HCO3 VBG Base Excess FiO2 Sodium 132.4 L Potassium 6.1 H* Chloride 98 Carbon Dioxide 15 L Anion Gap 19 BUN 77 H Creatinine 7.05 H Est GFR ( Amer) 7 L Glucose 111 H Lactic Acid 2.7 H 3.9 H Calcium 9.5 Phosphorus Magnesium Ferritin Total Bilirubin 0.7 AST 22 Alkaline Phosphatase 192 H C-Reactive Protein Total Protein 6.3 Albumin 3.1 L Triglycerides Cholesterol LDL Cholesterol Direct VLDL Cholesterol HDL Cholesterol Amylase Lipase TSH 03/24/20 03/24/20 03/24/20 07:29 07:29 07:29 WBC 43.9 H* RBC 3.76 Hgb 11.4 L Hct 35.2 L MCV 94 MCH 30.4 MCHC 32.4 RDW 14.3 H Plt Count 103 L Carbonic Acid HCO3/H2CO3 Ratio ABG pH ABG pCO2 ABG pO2 ABG HCO3 ABG O2 Saturation ABG Base Excess VBG pH VBG pCO2 VBG HCO3 VBG Base Excess FiO2 Sodium 135.9 L Potassium 4.3 D Chloride 107 Carbon Dioxide 8 L* Anion Gap 21 H BUN 69 H Creatinine 6.21 H Est GFR ( Amer) 8 L Glucose 87 Lactic Acid Calcium 8.6 Phosphorus 9.0 H Magnesium 1.7 Ferritin Total Bilirubin AST Alkaline Phosphatase C-Reactive Protein Total Protein Albumin Triglycerides 86 Cholesterol 60.66 LDL Cholesterol Direct < 30 VLDL Cholesterol 17.0 HDL Cholesterol 22 L Amylase 47 Lipase 206.4 TSH 8.83 H 03/24/20 03/24/20 03/24/20 07:29 10:00 10:20 WBC RBC Hgb Hct MCV MCH MCHC RDW Plt Count Carbonic Acid 1.62 H HCO3/H2CO3 Ratio 9:1 ABG pH 7.06 L* ABG pCO2 53.7 H ABG pO2 27.8 L* ABG HCO3 14.8 L ABG O2 Saturation 32.2 L ABG Base Excess -15.4 VBG pH VBG pCO2 VBG HCO3 VBG Base Excess FiO2 5L Sodium Potassium Chloride Carbon Dioxide Anion Gap BUN Creatinine Est GFR ( Amer) Glucose 104 Lactic Acid 3.2 H Calcium Phosphorus Magnesium Ferritin Total Bilirubin AST Alkaline Phosphatase C-Reactive Protein Total Protein Albumin Triglycerides Cholesterol LDL Cholesterol Direct VLDL Cholesterol HDL Cholesterol Amylase Lipase TSH 03/24/20 03/24/20 03/24/20 10:20 16:05 16:05 WBC RBC Hgb Hct MCV MCH MCHC RDW Plt Count Carbonic Acid HCO3/H2CO3 Ratio ABG pH ABG pCO2 ABG pO2 ABG HCO3 ABG O2 Saturation ABG Base Excess VBG pH 7.13 L* VBG pCO2 37.3 VBG HCO3 12.2 L VBG Base Excess -16.1 FiO2 Sodium 139.2 Potassium 4.7 Chloride 107 Carbon Dioxide 12 L Anion Gap 20 H BUN 61 H Creatinine 5.56 H Est GFR ( Amer) 10 L Glucose 117 H Lactic Acid Calcium 7.5 L Phosphorus Magnesium Ferritin 6460.00 H Total Bilirubin AST Alkaline Phosphatase C-Reactive Protein 81.7 H Total Protein Albumin Triglycerides Cholesterol LDL Cholesterol Direct VLDL Cholesterol HDL Cholesterol Amylase Lipase TSH 03/24/20 03/24/20 16:05 16:05 WBC RBC Hgb Hct MCV MCH MCHC RDW Plt Count Carbonic Acid Cancelled HCO3/H2CO3 Ratio Cancelled ABG pH Cancelled ABG pCO2 Cancelled ABG pO2 Cancelled ABG HCO3 Cancelled ABG O2 Saturation Cancelled ABG Base Excess Cancelled VBG pH VBG pCO2 VBG HCO3 VBG Base Excess FiO2 Cancelled Sodium Potassium Chloride Carbon Dioxide Anion Gap BUN Creatinine Est GFR ( Amer) Glucose Lactic Acid 7.1 H Calcium Phosphorus Magnesium Ferritin Total Bilirubin AST Alkaline Phosphatase C-Reactive Protein Total Protein Albumin Triglycerides Cholesterol LDL Cholesterol Direct VLDL Cholesterol HDL Cholesterol Amylase Lipase TSH Impressions: Extremity Ultrasound 03/23/20 17:07 IMPRESSION: Diffuse interstitial edema without focal fluid collection or abscess. Chest X-Ray 03/24/20 16:08 IMPRESSION: INTERVAL PLACEMENT OF CENTRAL LINE IN SATISFACTORY POSITION WITH NO PNEUMOTHORAX. OTHERWISE NO CHANGE IN APPEARANCE OF THE CHEST. All labs, radiographs, diagnostic studies and EKGs were personally reviewed: Yes In addition, reports of radiographic and diagnostic studies were read: Yes Critical Time Critical Time (minutes): 120 -: The care of a critically ill patient is dynamic. This note represents a static moment in the admission process. Orders and treatments may be given simultaneously and urgently, and time is not mill representative of the treatment process. This patient requires Critical Care secondary to life threatening organ or limb dysfunction. Without Critical Care services, the patient is at risk for increased mortality and morbidity.
[2020-03-24 19:36] LABS: ARTERIAL BLOOD BASE EXCESS -6.4 mmol/L; ARTERIAL BLOOD FIO2 100%; ARTERIAL BLOOD H2CO3 1.33 mmol/L (1.05-1.35); ARTERIAL BLOOD HCO3 20.2 mmol/L (20-24); ARTERIAL BLOOD O2 SATURATION 92.6 % (94-98); ARTERIAL BLOOD PCO2 44.3 mmHg (35-45); ARTERIAL BLOOD PH 7.28 (7.35-7.45); ARTERIAL BLOOD PO2 72.6 mmHg (80-100); ARTERIAL BLOOD TOTAL CO2 21.5 mmol/L (21-25)
[2020-03-24] MEDS ORDERED: HEPARIN SODIUM,PORCINE/D5W 25,000 UNIT/250 ML RTUINJ IV ONE (19:36)
[2020-03-24] MEDS ORDERED: HEPARIN SOD (PORCINE) 1,000 UNIT/ML 10 ML VIAL ONE (19:42)
[2020-03-24] MEDS ORDERED: DEXTROSE 5%-WATER 250 ML with VASOPRESSIN 100 UNIT IV PRN ×2 (19:46)
[2020-03-24] MEDS ORDERED: DEXTROSE 5%-WATER 1000 ML 1,000 ML with SODIUM BICARBONATE 150 MEQ IV PRN ×2 (20:08)
[2020-03-24] MEDS ORDERED: EPINEPHRINE INJ 1 MG/10 ML DISP.SYRIN IV ONE ×2 (20:48→20:58)
[2020-03-24] MEDS: ETOMIDATE INJ/PF 20 MG/10 ML SDV IV ONE (20:53)
[2020-03-24] MEDS ORDERED: ETOMIDATE INJ/PF 20 MG/10 ML SDV IV ONE (20:53)
[2020-03-24] MEDS: DEXTROSE 50%-WATER 25 GM/50 ML DISP.SYRIN IV ONE (21:29)
[2020-03-25] MEDS: ETOMIDATE INJ/PF 20 MG/10 ML SDV IV ONE (00:31)
[2020-03-25] MEDS: INSULIN REG, HUMAN 100 UNIT/ML 3 ML VIAL (PYX) ONE ×2 (00:32→02:10)
[2020-03-25] MEDS: DEXTROSE 50%-WATER 25 GM/50 ML DISP.SYRIN IV ONE (00:33)
[2020-03-25] MEDS: METOCLOPRAMIDE HCL INJ/PF 10 MG/2 ML SDV IV SCH (00:44)
[2020-03-25] MEDS: INSULIN LISPRO 100 UNIT/ML 3 ML VIAL SUBCUT SCH (02:05)
[2020-03-25] MEDS: ALBUTEROL SULFATE 0.083% NEB 2.5 MG/3 ML AMPUL NEB SCH (02:05)
[2020-03-25] MEDS ORDERED: EPOETIN ALFA-EPBX 2,000 UNIT, EPOETIN ALFA-EPBX 3,000 UNIT, EPOETIN ALFA-EPBX 20,000 UN... IV PRN ×4 (05:00)
--- NOTE | 2020-03-25 05:09 | Death Summary ---
Summary Date : 03/24/20 Time of :: 21:29 Autopsy: No Resuscitation Status: Full Code - Final Diagnosis (1) Septic shock Is this a current diagnosis for this admission?: Yes Hospital Course:: 54-year-old female admitted on 03/23/2020 after presenting with a 3- day history of nausea. Her initial evaluation revealed that she has a paraspinal abscess in the lumbar region. She was started on broad-spectrum antibiotic coverage with cefepime, Levaquin and vancomycin. Covid test is pending. Of note, she has purulent drainage from her abscess. She was admitted and initiated on treatment for septic shock resumed to be secondary to the purulent drainage from her paraspinous abscess. Vice President & General Manager [employer] was called to see this patient due to concerns about profound hypotension. Upon arrival, the patient's fingerstick glucose value was undetectably low. The patient was lethargic. 1 amp of D50 along with glucose gel was provided with considerable improvement in symptoms. Her blood pressure was noted to be 80-90 systolic. However, repeat fingerstick also revealed that the patient's glucose level had only come up to about 47. Consequently, she continued to get supplemental glucose in the form of D50, glucose gel along with initiation of D10 and D5 IV infusions. Despite continuing treatment (including, normalization of her serum glucose values), the patient failed to have improvement in her blood pressure. Consequently, she was transferred to the ICU, where she was initiated on vasopressor administration. Her mental status and respiratory status declined requiring emergent intubation. Airway was very edematous with copious amounts of blood, I was unable to visualize the vocal cords despite using the glide scope. Anesthesia and surgeon was called for possible cricotomy. After multiple attempts Dr. Juárez anesthesiologist placed a 7.5 ETT. 2114 patient went into PEA arrest requiring CPR, multiple rounds of epinephrine and bicarb. We never achieved ROSC, patient at 2128.
[2020-03-25 13:46] LABS: PATH REVIEW PATHOLOGIST REVIEWED
[2020-03-25] MEDS ORDERED: VANCOMYCIN HCL 750 MG in DEXTROSE 5%-WATER 250 ML IV SCH (18:00)
[2020-03-25] MEDS ORDERED: CEFEPIME 1 GM/D5W RTU 1 GM/50 ML RTUPB IV SCH (22:00)
[2020-03-26] MEDS ORDERED: LEVOFLOXACIN 500 MG/D5W RTU 500 MG/100 ML RTUPB IV SCH (10:00)
== END 2020-03-24 21:29 | disposition left against medical advice (07) | DRG 862 ==
LOC: ER 14:43 → EH 19:39 → 4W 21:48 → ICU 03-24 14:51
PROVIDERS: ADMIT Emergency Medicine; ATTEND Registered Nurse
PROC: 02HV33Z Insertion of Infusion Device into Superior Vena Cava, Percutaneous Approach (ICD-10-PCS; principal; 2020-03-23)
PROC: 0BH17EZ Insertion of Endotracheal Airway into Trachea, Via Natural or Artificial Opening (ICD-10-PCS; 2020-03-24)
DX: T81.44XA Sepsis following a procedure, initial encounter (principal); T81.12XA Postprocedural septic shock, initial encounter; N18.6 End stage renal disease; G06.1 Intraspinal abscess and granuloma; J96.01 Acute respiratory failure with hypoxia; J18.9 Pneumonia, unspecified organism; E87.2 Acidosis; I12.0 Hypertensive chronic kidney disease with stage 5 chronic kidney disease or end stage renal disease; N25.81 Secondary hyperparathyroidism of renal origin; K50.90 Crohn's disease, unspecified, without complications; T81.49XA Infection following a procedure, other surgical site, initial encounter; E11.649 Type 2 diabetes mellitus with hypoglycemia without coma; D63.1 Anemia in chronic kidney disease; E11.22 Type 2 diabetes mellitus with diabetic chronic kidney disease; I95.2 Hypotension due to drugs; E78.5 Hyperlipidemia, unspecified; M06.9 Rheumatoid arthritis, unspecified; M54.9 Dorsalgia, unspecified; G89.29 Other chronic pain; F55.8 Abuse of other non-psychoactive substances; E87.5 Hyperkalemia; M45.9 Ankylosing spondylitis of unspecified sites in spine; E66.9 Obesity, unspecified; R11.2 Nausea with vomiting, unspecified; E86.0 Dehydration; E86.1 Hypovolemia; Z11.59 Encounter for screening for other viral diseases; Z87.891 Personal history of nicotine dependence; Z88.0 Allergy status to penicillin; Z88.8 Allergy status to other drugs, medicaments and biological substances; Z91.041 Radiographic dye allergy status; Z87.01 Personal history of pneumonia (recurrent); Z99.2 Dependence on renal dialysis; Z91.15 Patient's noncompliance with renal dialysis; Z82.49 Family history of ischemic heart disease and other diseases of the circulatory system; Z93.2 Ileostomy status
CPT/HCPCS: 36415; 36556; 71045; 76882; 80048; 80061; 82150; 82533; 82728; 82803; 82947; 82962; 83036; 83605; 83690; 83735; 84100; 84443; 85027; 85610; 85730; 86140; 87040; 87070; 87075; 87077; 87150; 87186; 87205; 87635; 92950; 93005; 93010; 96361; 96365; 96367; 96375; 99285; 99291; 99292; C9803; J0171; J0692; J1265; J1644; J1815; J1956; J2310; J2405; J2765; J2930; J3370; J3490; J7030; J7040; J7060; J7120